=== PATIENT | male | born 1940 | race Caucasian/White ===

== ENCOUNTER → 2016-11-19 | Outpatient (CLI) | payer MEDICARE, MEDICAID | LOC: GMAJ 22:55 | PROVIDERS: ATTEND Nurse Practitioner Family | DX: N39.0 Urinary tract infection, site not specified (principal) ==

== ENCOUNTER 2017-01-16 11:30 | Inpatient (IN) | payer MEDICARE, MEDICAID ==
--- NOTE | 2017-01-16 11:39 | HP ---
SUPERVISING PHYSICIAN: Butch Haider MD CHIEF COMPLAINT: Shortness of breath. HISTORY OF PRESENT ILLNESS: This is a 76-year-old, male patient who is a resident of [facility]. He was seen in clinic last week and treated for bronchitis with Augmentin. He had increased his breathing treatments and his condition has not improved. He does have a longstanding history of chronic obstructive pulmonary disease. Today, he saw his primary care physician, Dr. Carroll Russo, and his respiratory status had worsened. In fact, he was wheezing quite a bit as well as tachypneic. His blood sugars were elevated. Chest x-ray was done and there was no pneumonia at this time, but I was called for admission for the patient due to acute on chronic chronic obstructive pulmonary disease with an acute exacerbation who had failed outpatient treatment as well as hyperglycemia. PAST MEDICAL HISTORY: 1. Coronary artery disease. 2. Chronic obstructive pulmonary disease. 3. Chronic kidney disease. 4. Hypertension. 5. Gastroesophageal reflux disease. 6. Anxiety disorder. 7. Hypercholesterolemia. 8. Type 2 diabetes mellitus. 9. Mental retardation. 10. Peripheral vascular disease. 11. Osteoarthritis. PAST SURGICAL HISTORY: 1. Coronary artery stent placement in 2005. 2. Tonsillectomy. 3. Coronary artery bypass graft, three vessels, in 2009. 4. Pacemaker implantation. OUTPATIENT MEDICATIONS: Per the EMR and awaiting verification. ALLERGIES: NO KNOWN ALLERGIES. SOCIAL HISTORY: He is disabled. He is single. He lives at [facility]. He denies any smoking, ETOH or illicit drug use. REVIEW OF SYSTEMS: GENERAL: Positive for fatigue. Negative for fever or weight changes. HEENT: Positive for nasal congestion and nasal disease. Negative for vision changes or sore throat. RESPIRATORY: Positive for wheezing, shortness of breath and chest congestion with a productive cough. CARDIAC: Denies chest pain, palpitations or tachycardia. GASTROINTESTINAL: Negative for nausea, vomiting, diarrhea, constipation or abdominal pain. SKIN: Negative for rashes or lesions. NEUROLOGIC: Positive for headache. Negative for dizziness, or seizures. PHYSICAL EXAMINATION: VITAL SIGNS: Afebrile. Heart rate 60. Blood pressure 165/78. Respiratory rate 24 breaths per minute. O2 saturation 97% on room air. GENERAL: This is a 76-year-old, male patient who is lying in his hospital bed. He is in mild respiratory distress. HEENT: Normocephalic, atraumatic. Pupils are equal and reactive. He has clear nasal drainage. Oropharynx is clear. NECK: Supple without mass. RESPIRATORY: Bilateral wheezing, more pronounced on the left than on the right. It is diminished at the bases and there are some scattered rhonchi throughout. He is tachypneic. CHEST: There is equal rise and fall of the chest with inspiration and expiration. CARDIOVASCULAR: Regular rate and rhythm. ABDOMEN: Soft, he is obese, it is rounded. Bowel sounds are positive. EXTREMITIES: No cyanosis, clubbing or edema. NEUROLOGIC: Awake, alert and oriented times three. He is very hard of hearing. LABORATORY: White count 6.3 with a hemoglobin 12.2, hematocrit 35.9. Sodium 134, potassium 4.3, chloride 100, BUN 32, creatinine 1.31, glucose 197. All other labs and films are awaiting completion in the EMR. ASSESSMENT: 1. Acute on chronic bronchitis with acute exacerbation, failed outpatient treatment. 2. Elevated blood sugar. 3. Diabetes mellitus, type 2, poorly controlled. 4. Hypertension. 5. Coronary artery disease. 6. Chronic kidney disease. 7. Mild mental retardation. PLAN: We will admit the patient to the hospital. I have done routine labs. We will repeat his chest x-ray in the morning. I have started him on IV steroids and we will have to keep close monitoring of his blood sugars as he has poorly controlled diabetes at this point anyway, so we will put him on sliding scale insulin. I will re-start his home medications as soon as they are verified. I have also given him breathing treatments, both scheduled and p.r.n. as well as ordered good bronchial hygiene. I started him on Levaquin parenteral antibiotics. I have done blood cultures as well as UA. I have ordered a proton pump inhibitor for ulcer prophylaxis and Lovenox for DVT prophylaxis. I have consulted physical therapy for evaluation and strengthening. We will continue to monitor the patient closely and follow as needed. Dr. Haider is the collaborating physician and available for consultation. #[id number] [facility]
[2017-01-16] MEDS ORDERED: ALBUTEROL SULFATE 2.5 MG/3 ML VIAL NEB PRN (12:52)
[2017-01-16] MEDS: IPRATROPIUM/ALBUTEROL 3 ML VIAL NEB SCH ×3 (13:00→20:28)
[2017-01-16] MEDS ORDERED: DEXTROSE 50% 25 GM/50 ML SYG IV PRN (13:01)
[2017-01-16] MEDS ORDERED: GLUCAGON INJ 1 MG VIAL SUBCU PRN (13:01)
--- NOTE | 2017-01-16 13:36 | PCM.CORE ---
Physician DVT/VTE - Prophylaxis Currently: Patient already on anticoagulation therapy - Nurse DVT Assessment & Total Each Risk Factor Represents 3 Points: Age over 75 years Each Risk Factor is 1 Point: Serious Lung disease (pnemonia <1month, COPD, emphysema,etc) DVT Assessment Score: 4 - 3-4 High Risk Treatments: Early Ambulation *, Sequential Compression Device
[2017-01-16] MEDS ORDERED: levoFLOXacin 500MG IV 100 ML IVPB ONE (14:13)
[2017-01-16] MEDS: PANTOPRAZOLE SODIUM IV 40 MG VIAL IV SCH (14:23)
[2017-01-16] MEDS: levoFLOXacin 500MG IV 500 MG in PREMIX BAG 1 BAG IVPB SCH (14:24)
[2017-01-16] MEDS: methylPREDNISolone SODIUM SUC 125 MG/2 ML VIAL IV SCH ×2 (14:24→21:22)
[2017-01-16] MEDS: ENOXAPARIN SODIUM 40 MG/0.4 ML SYG SUBCU SCH (14:25)
[2017-01-16] MEDS: IV SET AND CAP CHANGE INJ INJ SCH (16:01)
[2017-01-16] MEDS: INSULIN LISPRO 100 UNITS/ML PEN SUBCU SCH ×2 (16:36→21:30)
[2017-01-16] MEDS ORDERED: traZODone HCL 100 MG TAB PO ONE (20:15)
[2017-01-16] MEDS ORDERED: LACTOBACILLUS 1 TAB ONE (20:16)
[2017-01-16] MEDS ORDERED: TEMAZEPAM 15 MG CAP ONE (20:16)
[2017-01-16] MEDS ORDERED: NON-FORMULARY MEDICATION 1 EA MIS (Trazodone Hcl [Trazodone Hcl] 150 MG) PO SCH (21:00)
[2017-01-16] MEDS ORDERED: NON-FORMULARY MEDICATION 1 EA MIS (Lactobacillus [Acidophilus Lactobacilli] 1 CAP) PO SCH (21:00)
[2017-01-16] MEDS ORDERED: NON-FORMULARY MEDICATION 1 EA MIS (Temazepam [Temazepam] 30 MG) PO SCH (21:00)
[2017-01-16] MEDS: SODIUM CHLORIDE 0.9% (FLUSH) 10 ML SYG IV SCH (21:19)
[2017-01-16] MEDS: CILOSTAZOL 100 MG TAB PO SCH (21:19)
[2017-01-17] MEDS: methylPREDNISolone SODIUM SUC 125 MG/2 ML VIAL IV SCH ×3 (06:04→21:31)
[2017-01-17] MEDS: SODIUM CHLORIDE 0.9% (FLUSH) 10 ML SYG IV PRN (06:05)
[2017-01-17] MEDS ORDERED: SODIUM CHLORIDE 0.9% 1000ML 1,000 ML IVS PRN (06:56)
--- NOTE | 2017-01-17 07:02 | RAD ---
EXAM: Single view chest. INDICATION: COPD. COMPARISON: Chest x-ray: 09/18/2015. FINDINGS: Cardiac silhouette: Enlarged with a left chest wall pacemaker in place. [place]: Unremarkable. Lobar consolidation: None. Pleural effusion: None. Pneumothorax: None. Other: None. Bones: Unremarkable. Other: None. IMPRESSION: 1. No acute cardiopulmonary process. Electronically signed by: Chauncey Epperson MD 01/17/2017 7:01 AM CDT Workstation: [id number]
[2017-01-17] MEDS: INSULIN LISPRO 100 UNITS/ML PEN SUBCU SCH ×4 (07:38→21:29)
[2017-01-17] MEDS: CILOSTAZOL 100 MG TAB PO SCH ×2 (08:36→21:03)
[2017-01-17] MEDS: guaiFENesin ER TAB 600 MG TAB PO SCH ×3 (08:36→21:03)
[2017-01-17] MEDS: FUROSEMIDE 40 MG TAB PO SCH (08:37)
[2017-01-17] MEDS: CETIRIZINE HCL 10 MG TAB PO SCH (08:37)
[2017-01-17] MEDS: SODIUM CHLORIDE 0.9% (FLUSH) 10 ML SYG IV SCH (08:38)
[2017-01-17] MEDS: ATENOLOL 25 MG TAB PO SCH (08:44)
[2017-01-17] MEDS: TOLTERODINE TARTRATE ER 4 MG CAP PO SCH (08:44)
[2017-01-17] MEDS: DULoxetine HCL 30 MG CAP PO SCH (08:44)
[2017-01-17] MEDS: ARIPiprazole 5 MG TAB PO SCH (08:45)
[2017-01-17] MEDS: PANTOPRAZOLE SODIUM IV 40 MG VIAL IV SCH (08:45)
[2017-01-17] MEDS: LACTOBACILLUS 1 TAB PO SCH ×3 (08:45→21:08)
[2017-01-17] MEDS: ACETAMINOPHEN 325 MG TAB PO PRN (08:50)
[2017-01-17] MEDS: ONDANSETRON INJ 4 MG/2 ML VIAL IV PRN ×2 (08:50→18:14)
[2017-01-17] MEDS: IPRATROPIUM/ALBUTEROL 3 ML VIAL NEB SCH ×4 (08:54→20:37)
[2017-01-17] MEDS ORDERED: NON-FORMULARY MEDICATION 1 EA MIS (Telmisartan [Micardis] 40 MG) PO SCH (09:00)
[2017-01-17] MEDS ORDERED: OXYBUTYNIN CHLORIDE 5 MG PO SCH (09:00)
[2017-01-17] MEDS: ARFORMOTEROL TARTRATE 15 MCG/2 ML NEB NEB SCH ×2 (10:15→20:37)
[2017-01-17] MEDS: FLUTICASONE PROP 0.05% NASAL 16 GM BTTL BNAS SCH (10:43)
--- NOTE | 2017-01-17 11:20 | PN ---
SUPERVISING PHYSICIAN: Butch Haider MD DATE: 01/17/17 SUBJECTIVE: The patient is sitting up in his hospital bed. He complains that he has had more chest congestion today as well as said he coughed all night long. He denies any chest pain or shortness of breath, nausea, vomiting or diarrhea. OBJECTIVE: VITAL SIGNS: Afebrile. Heart rate 60. Blood pressure 146/71. Respiratory rate 20. O2 saturation has dropped as low as 89%and is now 91%. LUNGS: Bilateral rhonchi scattered throughout, but no wheezes noted today. CARDIAC: Regular rate and rhythm. ABDOMEN: Soft, rounded, nontender. Bowel sounds are positive. EXTREMITIES: No cyanosis, clubbing or edema. NEUROLOGIC: Awake, alert and oriented times three. LABORATORY: Sodium 133, potassium 5, chloride 97, carbon dioxide 24, BUN 36, creatinine 1.5, glucose 322. Glucose has gotten as high as 355. Calcium 8.3. Preliminary blood cultures are negative to date. Chest x-ray per radiologic interpretation shows no acute pulmonary process. All other labs and films have been reviewed via the EMR. ASSESSMENT: 1. Acute on chronic bronchitis with acute exacerbation, failed outpatient treatment. 2. Elevated blood sugar. 3. Diabetes mellitus, type 2, poorly controlled. 4. Hypertension. 5. Coronary artery disease. 6. Chronic kidney disease. 7. Mild mental retardation. 8. Mild hyponatremia. PLAN: We will continue present supportive care. I have increased his sliding scale insulin some to help cover his sugars as well as decreasing his steroids. I will discuss with respiratory therapy so we can order some more aggressive pulmonary hygiene. He is still on his guaifenesin. I have also started Brovana twice a day for his chronic obstructive pulmonary disease. I gave him a small amount of fluids to help with his renal function and I have ordered routine lab for in the morning. We will continue to encourage good pulmonary hygiene and continue to monitor the patient closely and follow as needed. Dr. Haider is the collaborating physician and available for consultation. [facility][id number] [facility]
[2017-01-17] MEDS ORDERED: PROMETHAZINE HCL INJ 25 MG/ML VIAL ONE (12:34)
[2017-01-17] MEDS ORDERED: SODIUM CHLORIDE 0.9% 50ML 50 ML ONE (12:35)
[2017-01-17] MEDS: PROMETHAZINE HCL INJ 25 MG in SODIUM CHLORIDE 0.9% 50ML 50 ML IVPB PRN (12:38)
[2017-01-17] MEDS: ENOXAPARIN SODIUM 40 MG/0.4 ML SYG SUBCU SCH (12:38)
[2017-01-17] MEDS ORDERED: levoFLOXacin 500MG IV 100 ML IVPB ONE (14:02)
[2017-01-17] MEDS: levoFLOXacin 500MG IV 500 MG in PREMIX BAG 1 BAG IVPB SCH (14:25)
[2017-01-17] MEDS: MAGNESIUM HYDROXIDE 30 ML UD PO SCH ×2 (14:25→18:13)
[2017-01-17] MEDS ORDERED: cloNIDine HCL 0.1 MG TAB PO ONE ×3 (14:56→20:44)
[2017-01-17] MEDS: BENZONATATE PERLES 100 MG CAP PO PRN ×2 (18:15)
[2017-01-17] MEDS ORDERED: VALSARTAN 80 MG TAB PO ONE (18:35)
[2017-01-17] MEDS: traZODone HCL 100 MG TAB PO SCH (21:02)
[2017-01-17] MEDS: TEMAZEPAM 15 MG CAP PO SCH (21:04)
[2017-01-18] MEDS: BENZONATATE PERLES 100 MG CAP PO PRN (00:11)
[2017-01-18] MEDS ORDERED: PANTOPRAZOLE SODIUM TAB 40 MG PO ONE (04:54)
[2017-01-18] MEDS: methylPREDNISolone SODIUM SUC 125 MG/2 ML VIAL IV SCH (06:51)
[2017-01-18] MEDS: PANTOPRAZOLE SODIUM TAB 40 MG PO SCH ×2 (06:51→07:10)
[2017-01-18] MEDS ORDERED: PROMETHAZINE HCL INJ 25 MG/ML VIAL ONE (07:08)
[2017-01-18] MEDS ORDERED: SODIUM CHLORIDE 0.9% 50ML 50 ML ONE (07:11)
[2017-01-18] MEDS: PROMETHAZINE HCL INJ 25 MG in SODIUM CHLORIDE 0.9% 50ML 50 ML IVPB PRN (07:11)
[2017-01-18] MEDS: SODIUM CHLORIDE 0.9% (FLUSH) 10 ML SYG IV PRN ×3 (07:20→21:32)
[2017-01-18] MEDS: INSULIN LISPRO 100 UNITS/ML PEN SUBCU SCH ×4 (07:30→21:29)
[2017-01-18] MEDS: ARFORMOTEROL TARTRATE 15 MCG/2 ML NEB NEB SCH ×2 (08:52→19:55)
[2017-01-18] MEDS: IPRATROPIUM/ALBUTEROL 3 ML VIAL NEB SCH ×4 (08:52→19:55)
--- NOTE | 2017-01-18 08:55 | RAD ---
EXAM DESCRIPTION: Abdomen Flat Upright CLINICAL HISTORY: 76 years Male, Vomitting COMPARISON: None. FINDINGS: Postoperative changes in the mediastinum and cardiac pacemaker only partially included. There are probable small bilateral pleural effusions with overlying atelectasis, edema or pneumonia in the lung bases. No pneumoperitoneum. The bowel gas pattern is nonobstructive with a moderate amount of stool and gas scattered throughout the colon. Is a moderate amount of gas in the stomach. No suspicious intra-abdominal calcification or mass is identified. There are degenerative changes in the lumbar spine at multiple levels. IMPRESSION: No obstruction, pneumoperitoneum or other acute intra-abdominal abnormality to explain patient's symptoms. Possible small bilateral pleural effusions with overlying atelectasis, pneumonia or edema in the lung bases. PA and lateral chest radiograph may be helpful for further evaluation. Electronically signed by: Bony Sprague MD 01/18/2017 8:54 AM CDT Workstation: [id number]
[2017-01-18] MEDS ORDERED: VALSARTAN 80 MG TAB PO SCH (09:00)
[2017-01-18] MEDS ORDERED: BISACODYL TAB 5 MG TAB PO ONE (09:07)
[2017-01-18] MEDS: DULoxetine HCL 30 MG CAP PO SCH (10:02)
[2017-01-18] MEDS: VALSARTAN 80 MG TAB PO SCH (10:03)
[2017-01-18] MEDS: TOLTERODINE TARTRATE ER 4 MG CAP PO SCH (10:03)
[2017-01-18] MEDS: FUROSEMIDE 40 MG TAB PO SCH (10:03)
[2017-01-18] MEDS: BISACODYL TAB 5 MG TAB PO SCH (10:03)
[2017-01-18] MEDS: ARIPiprazole 5 MG TAB PO SCH (10:03)
[2017-01-18] MEDS: ATENOLOL 25 MG TAB PO SCH (10:03)
[2017-01-18] MEDS: LACTOBACILLUS 1 TAB PO SCH ×3 (10:04→21:28)
[2017-01-18] MEDS: FLUTICASONE PROP 0.05% NASAL 16 GM BTTL BNAS SCH (10:04)
[2017-01-18] MEDS: guaiFENesin ER TAB 600 MG TAB PO SCH ×2 (10:04→21:29)
[2017-01-18] MEDS: CETIRIZINE HCL 10 MG TAB PO SCH (10:04)
[2017-01-18] MEDS: CILOSTAZOL 100 MG TAB PO SCH ×2 (10:04→21:29)
--- NOTE | 2017-01-18 10:29 | PN ---
SUPERVISING PHYSICIAN: Butch Haider MD DATE: 01/18/17 SUBJECTIVE: It was reported that the patient threw up earlier this morning and yesterday afternoon, he actually complained of some stomach pain and had not had a bowel movement. When I saw him yesterday afternoon, his abdomen was somewhat firmer than the day before. Today, he continues complaints of abdominal pain. He did receive 2 doses of Milk of Magnesia yesterday with minimal results. He also complains of continued coughing, but feels like it is much better than yesterday. OBJECTIVE: VITAL SIGNS: Afebrile. Heart rate 60. Blood pressure 186/92. Respiratory rate 20. O2 saturation 95%, but it did go as low as 88% on 2.5 liters nasal cannula overnight. LUNGS: Continues with bilateral rhonchi, but no wheezing noted. Somewhat diminished at the bases. CARDIAC: Regular rate and rhythm. ABDOMEN: Soft, nondistended, nontender. Bowel sounds are positive. Yesterday afternoon, his abdomen was somewhat firm and diffusely tender, but is improved overnight. EXTREMITIES: Trace of pedal edema noted bilaterally. NEUROLOGIC: Awake, alert and oriented times three. LABORATORY: WBCs have elevated to 14,000, hemoglobin 12.3, hematocrit 36.9, neutrophils 92.2%. Blood sugars have run between 255 and 339. Sodium 132, potassium 4.9, chloride 96, carbon dioxide 28, BUN 41, creatinine 1.43. Preliminary blood cultures show no growth after 24 hours. Abdominal x-ray per radiologic interpretation shows no obstruction, pneumoperitoneum or other intraabdominal abnormality to explain the patient's symptoms and possible small bilateral pleural effusions with overlying atelectasis, pneumonia or edema in the lung bases. PA and lateral chest radiograph may be helpful for further evaluation. All other labs and films have been reviewed via the EMR. ASSESSMENT: 1. Acute on chronic bronchitis with acute exacerbation, failed outpatient treatment. 2. Concerns for healthcare associated pneumonia per x-ray. He is presently on Levaquin. 3. Elevated blood sugar. 4. Diabetes mellitus, type 2, poorly controlled. 5. Hypertension. 6. Coronary artery disease. 7. Chronic kidney disease with a baseline creatinine of about 1.5. 8. Mild mental retardation. 9. Mild hyponatremia. PLAN: We will continue present supportive care. He received 2 doses of Milk of Magnesia yesterday and I have ordered some p.o. Dulcolax today as well as a soapsuds enema. His abdomen seems softer today than yesterday, but he is still complaining of some abdominal discomfort. I will also order another chest x- ray as recommended by the abdominal x-ray. I have decreased his steroids. He will get IV steroids today and tomorrow morning, he will start on 40 mg of prednisone daily. We will continue with good pulmonary hygiene and he will need to go home on Brovana and DuoNeb or another anticholinergic. Yesterday, his systolic blood pressure was elevated into the 190s. He received several doses of clonidine with very minimal results. He received an extra dose of valsartan yesterday, so I have increased his valsartan to 160 mg daily today and we will need to continue to monitor his blood pressure. His sodium is staying a little bit low and I will put him on a fluid restriction. [facility] We will continue to monitor the patient closely and follow as needed. Dr. Haider is the collaborating physician and available for consultation. [facility][id number] [facility]
[2017-01-18] MEDS: ENOXAPARIN SODIUM 40 MG/0.4 ML SYG SUBCU SCH (14:30)
[2017-01-18] MEDS ORDERED: SODIUM PHOS/BIPHOS ENEMA ADULT 133 ML BTTL PR ONE ×2 (14:55→15:00)
[2017-01-18] MEDS ORDERED: levoFLOXacin 500MG IV 100 ML IVPB ONE (15:14)
[2017-01-18] MEDS: levoFLOXacin 500MG IV 500 MG in PREMIX BAG 1 BAG IVPB SCH (15:39)
[2017-01-18] MEDS: methylPREDNISolone SODIUM SUC 40 MG/ML VIAL IV SCH ×2 (15:40→21:32)
[2017-01-18] MEDS: traZODone HCL 100 MG TAB PO SCH (21:28)
[2017-01-18] MEDS: TEMAZEPAM 15 MG CAP PO SCH (21:29)
[2017-01-19] MEDS: methylPREDNISolone SODIUM SUC 40 MG/ML VIAL IV SCH (05:57)
[2017-01-19] MEDS: SODIUM CHLORIDE 0.9% (FLUSH) 10 ML SYG IV PRN (05:57)
[2017-01-19] MEDS: PANTOPRAZOLE SODIUM TAB 40 MG PO SCH (05:57)
--- NOTE | 2017-01-19 07:16 | RAD ---
EXAM DESCRIPTION: Chest,1 View CLINICAL HISTORY: copd COMPARISON: January 17, 2017 FINDINGS: Again seen are postoperative changes in the mediastinum. A dual-lead cardiac pacemaker remains in place. The heart is enlarged but stable. There is some patchy alveolar opacity in the right lung base. Subsegmental atelectasis or scar is noted elsewhere in both lung bases. No pleural effusion. The lung volumes are within normal range. There is chronic elevation of the right hemidiaphragm. There is no pneumothorax or acute fracture. IMPRESSION: Abnormal appearance of the right lung base likely representing edema rather than pneumonia. Stable cardiomegaly, postoperative changes in the mediastinum and cardiac pacemaker. Electronically signed by: Bony Sprague MD 01/19/2017 7:15 AM CDT
[2017-01-19] MEDS: INSULIN LISPRO 100 UNITS/ML PEN SUBCU SCH ×5 (07:51→21:09)
[2017-01-19] MEDS: IPRATROPIUM/ALBUTEROL 3 ML VIAL NEB SCH ×4 (08:30→19:20)
[2017-01-19] MEDS: ARFORMOTEROL TARTRATE 15 MCG/2 ML NEB NEB SCH ×2 (08:30→19:20)
[2017-01-19] MEDS: VALSARTAN 80 MG TAB PO SCH (09:53)
[2017-01-19] MEDS: predniSONE 20 MG TAB PO SCH (09:53)
[2017-01-19] MEDS: CILOSTAZOL 100 MG TAB PO SCH ×2 (09:53→20:27)
[2017-01-19] MEDS: CETIRIZINE HCL 10 MG TAB PO SCH (09:53)
[2017-01-19] MEDS: FUROSEMIDE 40 MG TAB PO SCH (09:53)
[2017-01-19] MEDS: FLUTICASONE PROP 0.05% NASAL 16 GM BTTL BNAS SCH (09:53)
[2017-01-19] MEDS: TOLTERODINE TARTRATE ER 4 MG CAP PO SCH (09:54)
[2017-01-19] MEDS: ATENOLOL 25 MG TAB PO SCH (09:54)
[2017-01-19] MEDS: DULoxetine HCL 30 MG CAP PO SCH (09:54)
[2017-01-19] MEDS: ARIPiprazole 5 MG TAB PO SCH (09:54)
[2017-01-19] MEDS: guaiFENesin ER TAB 600 MG TAB PO SCH ×2 (09:54→20:27)
[2017-01-19] MEDS: BISACODYL TAB 5 MG TAB PO SCH (09:54)
[2017-01-19] MEDS: LACTOBACILLUS 1 TAB PO SCH ×3 (09:55→20:27)
[2017-01-19] MEDS: ACETAMINOPHEN 325 MG TAB PO PRN (10:19)
[2017-01-19] MEDS ORDERED: KCL 20MEQ/0.45% NS 1,000 ML IVS PRN (12:23)
[2017-01-19] MEDS: ENOXAPARIN SODIUM 40 MG/0.4 ML SYG SUBCU SCH (13:54)
[2017-01-19] MEDS ORDERED: levoFLOXacin 250MG IV 50 ML IVPB ONE (15:27)
[2017-01-19] MEDS ORDERED: levoFLOXacin 250MG IV 250 MG in PREMIX BAG 1 BAG IVPB SCH (15:30)
[2017-01-19] MEDS: IV SET AND CAP CHANGE INJ INJ SCH (15:44)
--- NOTE | 2017-01-19 19:16 | PN ---
DATE: 01/19/17 SUPERVISING PHYSICIAN: Butch Haider M.D. SUBJECTIVE: The patient continues to have some nausea and some epigastric discomfort. He did have some bowel movements and especially one this morning. He has actually been tolerating his diet and has been afebrile. OBJECTIVE: VITAL SIGNS: T max 98.0, pulse 60, blood pressure 117/82, respirations 20, satting 97% on nasal cannula at 2 liters. I's and O's show that he has had 1 bowel movement yesterday and has had multiple voids. Weight is 125.7 kg. CHEST: Lungs are clearer today with no notable wheezing, but remains diminished towards the bases. HEART: Regular rate and rhythm. ABDOMEN : Soft, nondistended with positive bowel sounds. EXTREMITIES: No clubbing, cyanosis or edema noted. NEUROLOGIC: He is alert and oriented times three. LABORATORY: White count is down to 12.1, hemoglobin is stable at 12.8 and 37.7 for hematocrit, platelet count is 192,000. Differential continues to show a left shift. Chemistries: sodium is down to 131, potassium is normal at 4.9, BUN is up today to 56 as well as creatinine is up to 1.74. Blood sugars have been elevated in the 300s, calcium is normal at 8.6. Sodium corrected for his blood sugar of 275 is 135. MICROBIOLOGY: Two sets of blood cultures remain negative after 3 days. RADIOLOGY: Chest x-ray this morning per radiology interpretation shows abnormal appearance of the right lung base likely representing edema rather than pneumonia and stable cardiomegaly with postoperative changes of the mediastinum as well as pacemaker on initial one view chest. ASSESSMENT: 1. Acute on chronic bronchitis with acute exacerbation failed outpatient treatment plan with concerns for healthcare associated pneumonia versus some edema with the patient being started on Levaquin. 2. Elevated blood sugar secondary to diabetes mellitus type 2 and ongoing corticosteroid administration. 3. Diabetes mellitus type 2 poorly controlled. 4. Hypertension. 5. Coronary artery disease. 6. Chronic kidney disease with a baseline creatinine noted to be at 1.5 with some elevation today possibly related to prerenal azotemia and some dehydration. 7. Moderate dehydration as noted by elevated BUN and creatinine. 8. Mild mental retardation. 9. Mild hyponatremia, although corrected for hyperglycemia showing improvement. PLAN: The patient will continue with IV fluids today as he is showing some dehydration and slight worsening renal function. This could be due to his Levaquin that was started. Will renal dose based off his creatinine clearance today and continue to monitor closely. I will go ahead and start him on some half normal saline with some potassium to help balance fluid status and monitor closely. He has been transitioned to p.o. Prednisone today. Blood sugars remain elevated. Will add additional a.c. coverage in efforts to better control this. He continues on Brovana and DuoNeb. I hope we will be able to discharge him tomorrow once he has shown a little better fluid management and not dehydrated, and hopefully showing some improvement in his renal function. Will go ahead and give another dose of Milk of Magnesia later today in efforts to provide additional bowel movements, but hopefully will alleviate some of his nausea, although he did have a bowel movement yesterday with the enema. Until discharge, will continue to monitor and treat appropriately. [facility][id number] [facility]
[2017-01-19] MEDS: traZODone HCL 100 MG TAB PO SCH (20:27)
[2017-01-19] MEDS: TEMAZEPAM 15 MG CAP PO SCH (20:27)
[2017-01-19] MEDS ORDERED: MAGNESIUM HYDROXIDE 30 ML UD PO SCH (21:00)
[2017-01-20] MEDS: PANTOPRAZOLE SODIUM TAB 40 MG PO SCH (06:08)
[2017-01-20] MEDS: INSULIN LISPRO 100 UNITS/ML PEN SUBCU SCH ×2 (08:02→08:03)
[2017-01-20] MEDS: ARIPiprazole 5 MG TAB PO SCH (08:06)
[2017-01-20] MEDS: CILOSTAZOL 100 MG TAB PO SCH (08:06)
[2017-01-20] MEDS: TOLTERODINE TARTRATE ER 4 MG CAP PO SCH (08:07)
[2017-01-20] MEDS: FUROSEMIDE 40 MG TAB PO SCH (08:08)
[2017-01-20] MEDS: guaiFENesin ER TAB 600 MG TAB PO SCH (08:08)
[2017-01-20] MEDS: predniSONE 20 MG TAB PO SCH (08:08)
[2017-01-20] MEDS: VALSARTAN 80 MG TAB PO SCH (08:08)
[2017-01-20] MEDS: DULoxetine HCL 30 MG CAP PO SCH (08:08)
[2017-01-20] MEDS: ATENOLOL 25 MG TAB PO SCH (08:08)
[2017-01-20] MEDS: LACTOBACILLUS 1 TAB PO SCH (08:09)
[2017-01-20] MEDS: CETIRIZINE HCL 10 MG TAB PO SCH (08:09)
[2017-01-20] MEDS: IPRATROPIUM/ALBUTEROL 3 ML VIAL NEB SCH (08:37)
[2017-01-20] MEDS: ARFORMOTEROL TARTRATE 15 MCG/2 ML NEB NEB SCH (08:37)
[2017-01-20] MEDS: BISACODYL TAB 5 MG TAB PO SCH (09:52)
[2017-01-20] MEDS: FLUTICASONE PROP 0.05% NASAL 16 GM BTTL BNAS SCH (09:52)
[2017-01-20 10:30] VITALS: O2SAT 94
[2017-01-20 10:39] VITALS: BP 170/72; TEMP 97.6
--- NOTE | 2017-01-21 10:04 | DS ---
SUPERVISING PHYSICIAN: Butch Haider MD DISCHARGE DIAGNOSES: 1. Acute on chronic bronchitis with acute exacerbation having failed to respond to outpatient treatment plan with concerns for healthcare associated pneumonia versus some edema with the patient having on Levaquin during hospitalization showing good improvement in symptoms. 2. Elevated blood sugar secondary to diabetes mellitus type 2 and ongoing corticosteroid administration. 3. Diabetes mellitus type 2 poorly controlled. 4. Hypertension. 5. Coronary artery disease. 6. Chronic kidney disease with a baseline creatinine of 1.5 with some elevation during hospitalization felt to be related to prerenal azotemia and some dehydration improved after fluids. 7. Moderate dehydration improved after initiation of fluids. 8. Mild mental retardation. 9. Mild hyponatremia improved after fluids and correction with hypoglycemia state. 10. Constipation resolved with stool softeners and milk of magnesia. HISTORY OF PRESENT ILLNESS: Mr. Pritchett is a 76-year-old male patient who is a resident of [facility]. He was seen in clinic in the previous week and treated for bronchitis and was started on Augmentin. He had increased in his breathing treatments and his condition had not improved. He does have a longstanding history of chronic obstructive pulmonary disease. On date of admission, he saw his primary care physician, Dr. Carroll Russo, and his respiratory status had worsened. In fact, he was wheezing quite a bit and was tachypneic. His blood sugars were elevated. Chest x-ray was done and there was no pneumonia at that time, but he was admitted due to the acute on chronic chronic obstructive pulmonary disease with an acute exacerbation having failed to respond to outpatient treatment plan as well as hyperglycemia. LABORATORY: White count on admission showed to be normal at 6.3. After initiation of the corticosteroids it did maximize at 14.0, prior to discharge it had normalized to 8.0 Hemoglobin and hematocrit were stable and on discharge was 12.5 and 35.9. Platelet count was 189,000. Differential did show a left shift, this resolved prior to discharge. Chemistries initially on admission showed a sodium of 134, potassium 4.3, BUN 32, creatinine 1.31. Liver functions showed to be within normal limits. Prior to discharge and after treatment with fluids, his sodium was persistently low but correction, given the hypoglycemia was actually normalized at 135. Potassium was 4.3, BUN still slightly elevated at 62, creatinine was at 1.62. however, this was felt to be partially related to the Levaquin dosing. Blood sugars were elevated after he was started on corticosteroids ranging in the mid 200s to mid 300s but improving prior to discharge. Glucose at discharge was 193. Urinalysis showed 100 protein, 250 glucose, otherwise was within normal limits. MICROBIOLOGY: No sputum was collected. His blood cultures remained negative at 4 days. RADIOLOGY: He had a chest x-ray initially on admission. The day after admission and per radiology interpretation, there was no acute cardiopulmonary processes noted. He had an additional chest x-ray on 01/19 which compared to showed abnormal appearance of the right lung base likely representing edema rather than pneumonia but stable cardiomegaly was noted. HOSPITAL COURSE: Mr. Pritchett was admitted as noted in the history of present illness for acute exacerbation of chronic obstructive pulmonary disease, having failed to respond to outpatient treatment plan with bronchitis with concerns for healthcare acquired pneumonia. He was initiated on Levaquin initially as well as Solu-Medrol. The patient did show improvement. His white count elevated but this was felt to be due to his Solu-Medrol dosing and he was slowly tapered to p.o. dose. 24 hours prior to discharge he was on p.o. prednisone. He was no longer showing any respiratory distress. He did have some episodes of abdominal discomfort and some nausea which was attributed to ongoing constipation which resolved after enemas, stool softeners and milk of magnesia. On the morning of discharge, the patient was felt to be clinically improved well enough to be continued in outpatient setting with discharge. He had finished a 5-day course of high-dose Levaquin antibiotic coverage. He was discharged to continue in outpatient setting and return to [facility]. The patient did have some episodes of hypertension and Diovan was doubled in dosing and had good response. It was also noted that he was started on a long-acting beta antagonist with Brovana and responded well. This was continued through discharge. PLAN: Mr. Pritchett was discharged on 01/20/17 with instructions to have close clinical followup with Dr. Russo as scheduled in the coming week and to have a repeat chest x-ray. Return via [facility]. He is to resume his home medications as instructed and follow new prescriptions as directed. He is to have physical therapy evaluation and treatment. He is to return to the hospital should have any concerns or worsening symptoms. At discharge, he was started on: 1. Albuterol 2.5 mg nebulizer. 2. Brovana 15 mcg nebulizer twice a day. 3. Guaifenesin 600 mg twice a day. 4. Duoneb 4 times a day. 5. Medrol Dosepak tapering dose, 4 mg. 6. Diodon 160 mg daily. All other medications to resume as prior to hospitalization as noted in chart. Discharge diet: Diabetic. Activity as per physical therapy. Condition on discharge was stable and improved. [id number] [facility]
== END 2017-01-20 10:39 | DRG 190 ==
LOC: MS 11:30
PROVIDERS: ADMIT Nurse Practitioner Acute Care; ATTEND Nurse Practitioner Family
DX: J44.0 Chronic obstructive pulmonary disease with (acute) lower respiratory infection (principal); J18.9 Pneumonia, unspecified organism; E87.1 Hypo-osmolality and hyponatremia; J44.1 Chronic obstructive pulmonary disease with (acute) exacerbation; I25.10 Atherosclerotic heart disease of native coronary artery without angina pectoris; I12.9 Hypertensive chronic kidney disease with stage 1 through stage 4 chronic kidney disease, or unspecified chronic kidney disease; N18.9 Chronic kidney disease, unspecified; K21.9 Gastro-esophageal reflux disease without esophagitis; F41.9 Anxiety disorder, unspecified; E78.00 Pure hypercholesterolemia, unspecified; E11.22 Type 2 diabetes mellitus with diabetic chronic kidney disease; E11.51 Type 2 diabetes mellitus with diabetic peripheral angiopathy without gangrene; M19.90 Unspecified osteoarthritis, unspecified site; E66.9 Obesity, unspecified; Y95 Nosocomial condition; E86.0 Dehydration; F70 Mild intellectual disabilities; E11.65 Type 2 diabetes mellitus with hyperglycemia; Z95.5 Presence of coronary angioplasty implant and graft; Z95.1 Presence of aortocoronary bypass graft; Z95.0 Presence of cardiac pacemaker

== ENCOUNTER 2017-02-11 10:46 | Emergency (ER) | payer MEDICARE, OTHER ==
--- NOTE | 2017-02-11 11:11 | ED.PDOC ---
History of Present Illness - General Chief Complaint: Skin/Abrasion/Tear Stated Complaint: yeast infection Time Seen by Provider: 02/11/17 11:01 Source: patient, RN notes reviewed, [facility] records Additional Information: Day 6 of daily Diflucan for intertrigo. IA send patient to ED due to patient's complaint of pain and concern that the intertrigo was worsening. Pt in no distress and no obvious pain on arrival to ED. He is obese with uncontrolled DM and he is incontinent of urine. He is nontoxic. His comorbidities are likely contributing to his intertrigo. - History of Present Illness Timing/Duration: constant - for several days Severity: moderate Improving Factors: nothing Worsening Factors: nothing Associated Symptoms: denies symptoms Allergies/Adverse Reactions: Allergies NO KNOWN ALLERGY Allergy (Unverified 08/26/14 02:03) Home Medications: Ambulatory Orders Atenolol [Tenormin] 50 mg PO DAILY 08/26/14 Cilostazol [Pletal] 100 mg PO BID 08/26/14 Duloxetine HCl [Cymbalta] 60 mg PO DAILY 08/26/14 Furosemide 40 mg PO DAILY 08/26/14 Metformin HCl 500 mg PO 08/26/14 Oxybutynin Chloride [Oxybutynin Chloride ER] 5 mg PO DAILY 08/26/14 Pantoprazole Sodium 40 mg PO DAILY 08/26/14 Temazepam 30 mg PO BEDTIME 08/26/14 Trazodone HCl 150 mg PO BEDTIME 08/26/14 Vitamin C 500 mg PO DAILY 08/26/14 Aripiprazole 20 mg PO DAILY 01/16/17 Cetirizine HCl [Zyrtec] 10 mg PO DAILY 01/16/17 Fluticasone Prop 0.05% Nasal [Flonase Nasal [place]] 50 mcg INH DAILY 01/16/17 Lactobacillus [Acidophilus Lactobacilli] 1 cap PO TID 01/16/17 cloNAZepam [Klonopin] 0.25 mg PO DAILY 01/16/17 Albuterol Sulfate Nebs [Proventil Nebs] 2.5 mg NEB PRN PRN 01/20/17 Arformoterol Tartrate Nebs [Brovana Nebs] 15 mcg NEB RTBID #60 neb 01/20/17 Ipratropium/Albuterol [Duoneb] 3 ml NEB RTQID 09/29/17 Methylprednisolone [Medrol Dose Amanuel] 4 mg PO DAILY #1 pack 01/20/17 Valsartan [Diovan] 160 mg PO DAILY #60 tablet 01/20/17 guaiFENesin ER TAB [Mucinex Tab] 600 mg PO BID 01/20/17 Acetamin W/Cod #3 Tab [Tylenol #3 Tab] 1 ea PO Q4-6H PRN #20 tab 02/11/17 Insulin Glargine [Lantus Solostar] 10 unit SC BEDTIME #1 pack 02/11/17 Review of Systems - Review of Systems Constitutional: States: no symptoms reported EENTM: States: no symptoms reported Respiratory: States: no symptoms reported Cardiology: States: no symptoms reported Gastrointestinal/Abdominal: States: no symptoms reported Genitourinary: States: see HPI - incontinent of urine Musculoskeletal: States: no symptoms reported Skin: States: see HPI - intertrigo Neurological: States: no symptoms reported Endocrine: States: increased urine Hematologic/Lymphatic: States: no symptoms reported Past Medical History (General) - Patient Medical History Hx Cardiac Disorders: Yes Hx Congestive Heart Failure: Yes - CAD, Hyperlipidema, hypercholesterolemia Hx Pacemaker: Yes Hx Hypertension: Yes Hx Diabetes: Yes Hx Gastroesophageal Reflux: Yes Hx Renal Disease: Yes Hx MRSA: No - Vaccination History Hx Influenza Vaccination: Yes Hx Pneumococcal Vaccination: Yes - Social History Hx Tobacco Use: No Family Medical History - Family History Father Family History: Unknown Physical Exam - Physical Exam General Appearance: No apparent distress, Obese Eye Exam: bilateral normal Ears, Nose, Throat: other - hard of hearing (at baseline) Neck: non-tender, supple, normal inspection Respiratory: no respiratory distress, no accessory muscle use Cardiovascular/Chest: regular rate, rhythm Gastrointestinal/Abdominal: soft Extremity: normal range of motion, non-tender, normal inspection Neurologic: screen roller II-XII nml as tested, no motor/sensory deficits, alert Skin Exam: rash - Diffuse bilateral intertrigonous region of groin with moderate intertigo in areas where pannus overlies. Nontender no examination. Mild to Moderate maceration noted. Progress - Progress Progress: 02/11/17 11:47 Patient tolerated Barton Catheter placement. Pt in no distress at rest. Intertrigo appears moderate. Patient stable for discharge back to Snf. Blood glucose elevated - likely will benefit from basal insulin. 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 Copy, Patient Portal Self Enrollment Instructions: DI for Intertrigo Referrals: Carroll Russo MD [Primary Care Provider] - 1-5 Days Prescriptions: Acetamin W/Cod #3 Tab [Tylenol #3 Tab] 1 ea PO Q4-6H PRN #20 tab PRN Reason: Pain -- Moderate To Severe Insulin Glargine [Lantus Solostar] 10 unit SC BEDTIME #1 pack Home Medications: Ambulatory Orders Atenolol [Tenormin] 50 mg PO DAILY 08/26/14 Cilostazol [Pletal] 100 mg PO BID 08/26/14 Duloxetine HCl [Cymbalta] 60 mg PO DAILY 08/26/14 Furosemide 40 mg PO DAILY 08/26/14 Metformin HCl 500 mg PO 08/26/14 Oxybutynin Chloride [Oxybutynin Chloride ER] 5 mg PO DAILY 08/26/14 Pantoprazole Sodium 40 mg PO DAILY 08/26/14 Temazepam 30 mg PO BEDTIME 08/26/14 Trazodone HCl 150 mg PO BEDTIME 08/26/14 Vitamin C 500 mg PO DAILY 08/26/14 Aripiprazole 20 mg PO DAILY 01/16/17 Cetirizine HCl [Zyrtec] 10 mg PO DAILY 01/16/17 Fluticasone Prop 0.05% Nasal [Flonase Nasal [place]] 50 mcg INH DAILY 01/16/17 Lactobacillus [Acidophilus Lactobacilli] 1 cap PO TID 01/16/17 cloNAZepam [Klonopin] 0.25 mg PO DAILY 01/16/17 Albuterol Sulfate Nebs [Proventil Nebs] 2.5 mg NEB PRN PRN 01/20/17 Arformoterol Tartrate Nebs [Brovana Nebs] 15 mcg NEB RTBID #60 neb 01/20/17 Ipratropium/Albuterol [Duoneb] 3 ml NEB RTQID 01/20/17 Methylprednisolone [Medrol Dose Amanuel] 4 mg PO DAILY #1 pack 01/20/17 Valsartan [Diovan] 160 mg PO DAILY #60 tablet 01/20/17 guaiFENesin ER TAB [Mucinex Tab] 600 mg PO BID 01/20/17 Acetamin W/Cod #3 Tab [Tylenol #3 Tab] 1 ea PO Q4-6H PRN #20 tab 02/11/17 Insulin Glargine [Lantus Solostar] 10 unit SC BEDTIME #1 pack 02/11/17 Additional Instructions: Maintain random blood glucose around 100-200 with adjustments in basal insulin. Keep area with rash dry as much as possible. Barton bag care per usual nursing protocol. Consider referral to Urology for possible suprapubic catheter. Continue Diflucan daily for a total of 2 to 6 weeks to treat the Intertrigo.
[2017-02-11 11:13] VITALS: TEMP 96.1
[2017-02-11 12:30] VITALS: O2SAT 95
[2017-02-11 13:04] VITALS: BP 139/77
== END 2017-02-11 13:00 ==
LOC: ER 10:46
DX: L30.4 Erythema intertrigo (principal); E11.620 Type 2 diabetes mellitus with diabetic dermatitis; E11.65 Type 2 diabetes mellitus with hyperglycemia; R32 Unspecified urinary incontinence; Z79.4 Long term (current) use of insulin; I11.0 Hypertensive heart disease with heart failure; I50.9 Heart failure, unspecified; E78.5 Hyperlipidemia, unspecified; E78.00 Pure hypercholesterolemia, unspecified; Z79.899 Other long term (current) drug therapy

== ENCOUNTER → 2017-03-13 | Outpatient (CLI) | payer MEDICARE, OTHER ==
--- NOTE | 2017-03-15 11:30 | CT ---
EXAM DESCRIPTION: CT ABDOMEN AND PELVIS WITHOUT AND WITH CONTRAST CLINICAL HISTORY: DIARRHEA COMPARISON: May 10, 2013 TECHNIQUE: CT of the abdomen and pelvis are performed prior to and during IV bolus administration of nonionic contrast. Oral contrast enhancement was not utilized This exam was performed according to our departmental dose-optimization program, which includes automated exposure control, adjustment of the mA and/or kV according to patient size and/or use of iterative reconstruction technique. FINDINGS: Elevated lung bases and compressive atelectasis and patchy infiltrative change in each posterior lung bases right greater than left is present without significant pleural effusion. An eventration or focal bulge of the right hemidiaphragm anteriorly with notching of the dome of the liver is noted and presumably represents a chronic finding. Radial megaly with previous sternotomy is noted. An indwelling permanent pacer or ICD is noted. Noncontrast imaging demonstrates a lobulated liver with prominence of the left lobe and moderate splenomegaly. The right kidney is atrophic. A small fat-containing umbilical hernia is present with an oval approximate 2.5 x 1.5 cm soft tissue nodule within this that does not represent a loop of bowel. An enlarged lymph node or a small loculated pocket of fluid would be a consideration but ascites elsewhere within the abdomen and pelvis is not apparent. This lies just deep to the skin at the superior margin of the umbilicus. Correlation with any palpable abnormality at this location is recommended. Sonography of the anterior abdominal wall at at and just cephalad to the umbilicus may further characterize this finding. Contrast enhanced examination demonstrates homogeneous enhancement of the liver and spleen with moderate splenomegaly and no focal hepatic lesions. The appearance of the liver suggests moderate cirrhosis without marked decrease in size of the liver. Significant varices to confirm portal hypertension is not apparent. The splenic and portal vein appear patent. The spleen is modestly atrophic. Small bowel loops are normal in caliber without evidence of obstruction or acute inflammation the gallbladder is distended with a multiple small stones layering dependently without ductal dilation The left kidney enhances normally and the left adrenal gland is normal in appearance. Moderate atrophy of the right kidney with a prominent extrarenal pelvis is noted. Mild oval enlargement of the lateral limb of the right adrenal gland most suggestive of a benign adenoma with diminished density is present. This is unchanged from April 2013 study. A previous suspected cyst of the lower pole right kidney is no longer apparent. Delayed imaging demonstrates normal renal function bilaterally with no evidence of caliectasis or obstruction on either side. Continuing into the pelvis the bladder is normally distended and Barton catheter in place and diverticulosis of the colon is present without acute inflammation. Atherosclerotic calcification of the nondilated aorta is noted with no evidence of retroperitoneal adenopathy. Advanced disc degenerative changes at L5-S1 with grade 2 spondylolisthesis and bilateral L5 pars defects are noted. Significant degenerative disc disease at the three levels above this with normal alignment is evident. IMPRESSION: 1. Bibasilar atelectatic and/or inflammatory changes in each posterior lung bases right greater than left. 2. Cirrhosis of the liver and splenomegaly without convincing evidence of portal hypertension or liver failure 3. Cholelithiasis 4. Small fat-containing umbilical hernia with a small 1.5 x 2.5 cm nodule within the hernia at the superior aspect of the umbilicus. Correlation with physical examination and consideration for sonographic evaluation recommended. This does not represent a loop of bowel. 5. Atrophic right kidney and stable probable benign adrenal adenoma lateral limb of the right adrenal gland, unchanged 2013. 6. Advanced degenerative changes of the spine with grade 2 spondylolisthesis at L5-S1. 7. Colonic diverticulosis without evidence of bowel obstruction or dilation or acute inflammation. Electronically signed by: Butch Bravo MD 03/15/2017 11:29 AM GRINDING MACHINE OPERATOR AUTOMATIC
== END | disposition home or self-care (01) ==
LOC: CT 13:37
PROVIDERS: ATTEND Family Medicine
DX: R19.7 Diarrhea, unspecified (principal)

== ENCOUNTER 2017-03-31 13:10 | Inpatient (IN) | payer MEDICARE, OTHER ==
--- NOTE | 2017-03-31 13:41 | ED.PDOC ---
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 Timing/Duration: 1-3 hours Severity: moderate Improving Factors: nothing Worsening Factors: nothing Associated Symptoms: fever/chills, nausea/vomiting Allergies/Adverse Reactions: Allergies NO KNOWN ALLERGY Allergy (Verified 03/31/17 13:36) Home Medications: Ambulatory Orders Ascorbic Acid [Vitamin C] 500 mg PO DAILY #0 08/26/14 Atenolol [Tenormin] 50 mg PO DAILY 08/26/14 Cilostazol [Pletal] 100 mg PO BID 08/26/14 Duloxetine HCl [Cymbalta] 120 mg PO DAILY 08/26/14 Furosemide 40 mg PO DAILY 08/26/14 Oxybutynin Chloride [Oxybutynin Chloride ER] 5 mg PO DAILY 08/26/14 Pantoprazole Sodium 40 mg PO DAILY 08/26/14 Temazepam 30 mg PO BEDTIME 08/26/14 Trazodone HCl 150 mg PO BEDTIME 08/26/14 Aripiprazole 20 mg PO DAILY 01/16/17 Cetirizine HCl [Zyrtec] 10 mg PO DAILY 01/16/17 Fluticasone Prop 0.05% Nasal [Flonase Nasal [place]] 2 spray INH DAILY 01/16/17 Lactobacillus [Acidophilus Lactobacilli] 1 cap PO TID 01/16/17 cloNAZepam [Klonopin] 0.25 mg PO BID 01/16/17 Ipratropium/Albuterol [Duoneb] 3 ml NEB RTQID 01/20/17 Valsartan [Diovan] 160 mg PO DAILY #60 tablet 01/20/17 guaiFENesin ER TAB [Mucinex Tab] 600 mg PO BID 01/20/17 Acetamin W/Cod #3 Tab [Tylenol #3 Tab] 1 ea PO Q4-6H PRN #20 tab 02/11/17 Insulin Glargine [Lantus Solostar] 10 unit SC BEDTIME #1 pack 02/11/17 Albuterol Sulfate Nebs [Proventil Nebs] 2.5 mg NEB BID PRN 03/31/17 Arformoterol Tartrate Nebs [Brovana Nebs] 15 mcg NEB QID PRN 03/31/17 Clonidine HCl 0.1 mg PO Q4H PRN 03/31/17 Review of Systems - Review of Systems Constitutional: States: see HPI, fever Gastrointestinal/Abdominal: States: see HPI, vomiting Unable to Obtain Due To: condition, clinical condition Past Medical History (General) - Patient Medical History Hx Cardiac Disorders: Yes Hx Congestive Heart Failure: Yes - CAD, Hyperlipidema, hypercholesterolemia Hx Pacemaker: Yes Hx Hypertension: Yes Hx Diabetes: Yes Hx Gastroesophageal Reflux: Yes Hx Renal Disease: Yes Hx MRSA: No Surgical History: coronary bypass surgery, pacemaker - Vaccination History Hx Influenza Vaccination: Yes Hx Pneumococcal Vaccination: Yes - Social History Hx Tobacco Use: No - Activities of Daily Living Retirement/Assisted Living (if applicable):: [facility] Family Medical History - Family History Father Family History: Unknown Physical Exam - Physical Exam General Appearance: Alert, No apparent distress Eye Exam: bilateral normal Ears, Nose, Throat: hearing grossly normal, normal ENT inspection, normal pharynx Neck: non-tender, full range of motion, supple, normal inspection Respiratory: no respiratory distress, decreased breath sounds, rhonchi Cardiovascular/Chest: normal peripheral pulses, regular rate, rhythm, no gallop , no murmur Peripheral Pulses: radial,right: 2+, radial,left: 2+ Gastrointestinal/Abdominal: normal bowel sounds, non tender, soft, no organomegaly Extremity: no pedal edema, no calf tenderness Neurologic: alert Progress - Progress Progress: 03/31/17 14:42 Last Vital Signs Temp 102.1 F H 03/31/17 13:21 Pulse 60 03/31/17 13:21 Resp 24 03/31/17 13:21 BP 99/49 03/31/17 13:21 Pulse Ox 92 L 03/31/17 13:21 - Results/Orders Results/Orders: Laboratory Tests 03/31/17 03/31/17 03/31/17 13:50 13:50 13:50 WBC 18.3 H RBC 4.21 L Hgb 12.6 L Hct 38.5 L MCV 91.5 MCH 29.9 MCHC 32.9 L RDW 14.8 H Plt Count 329 MPV 7.6 Absolute Neuts (auto) 16.00 H Absolute Lymphs (auto) 0.90 L Absolute Monos (auto) 1.30 H Absolute Eos (auto) 0.00 Absolute Basos (auto) 0.00 Neutrophils % 87.5 H Lymphocytes % 5.2 L Monocytes % 7.0 Eosinophils % 0.1 L Basophils % 0.2 Sodium 136 Potassium 4.5 Chloride 100 L Carbon Dioxide 23 Anion Gap 17.5 BUN 67 H Creatinine 2.93 H BUN/Creatinine Ratio 22.9 H Random Glucose 173 H Serum Osmolality 295.5 H Lactic Acid 1.0 Calcium 8.6 Total Bilirubin 1.1 H AST 27 ALT 22 Alkaline Phosphatase 161 H Troponin I B-Natriuretic Peptide Serum Total Protein 7.8 Albumin 3.6 Globulin 4.2 H Albumin/Globulin Ratio 0.9 L Lipase 19 L Urine Color Urine Appearance Urine pH Ur Specific [place] Urine Protein Urine Glucose (UA) Urine Ketones Urine Blood Urine Nitrite Urine Bilirubin Urine Urobilinogen Ur Leukocyte Esterase Urine RBC Urine WBC Ur Epithelial Cells Urine Bacteria 03/31/17 03/31/17 03/31/17 14:00 14:38 14:38 WBC RBC Hgb Hct MCV MCH MCHC RDW Plt Count MPV Absolute Neuts (auto) Absolute Lymphs (auto) Absolute Monos (auto) Absolute Eos (auto) Absolute Basos (auto) Neutrophils % Lymphocytes % Monocytes % Eosinophils % Basophils % Sodium Potassium Chloride Carbon Dioxide Anion Gap BUN Creatinine BUN/Creatinine Ratio Random Glucose Serum Osmolality Lactic Acid Calcium Total Bilirubin AST ALT Alkaline Phosphatase Troponin I 0.03 B-Natriuretic Peptide 343.0 H* Serum Total Protein Albumin Globulin Albumin/Globulin Ratio Lipase Urine Color Yellow Urine Appearance Cloudy Urine pH 8.5 H Ur Specific [place] 1.015 Urine Protein 100 H Urine Glucose (UA) Negative Urine Ketones Negative Urine Blood Large H Urine Nitrite Negative Urine Bilirubin Negative Urine Urobilinogen 1.0 Ur Leukocyte Esterase Large H Urine RBC 10-20 H Urine WBC 10-20 H Ur Epithelial Cells 0 Urine Bacteria 2+ H - EKG/XRAY/CT EKG: Sinus Comments: HR-60 pacemaker XRAY: chest - pulmonary vascular congestion,interstitial infiltrate lower lobe Departure - Departure Clinical Impression: Acute interstitial pneumonia Urinary tract infection Qualifiers: Urinary tract infection type: catheter-associated UTI Indwelling urinary catheter type: indwelling urethral catheter Encounter type: initial encounter Qualified Code(s): T83.511A - Infection and inflammatory reaction due to indwelling urethral catheter, initial encounter; N39.0 - Urinary tract infection , site not specified Vomiting Qualifiers: Vomiting type: unspecified Vomiting Intractability: non-intractable Nausea presence: unspecified Qualified Code(s): R11.10 - Vomiting, unspecified Fever Qualifiers: Fever type: due to other condition Qualified Code(s): R50.81 - Fever presenting with conditions classified elsewhere Diabetes Qualifiers: Diabetes mellitus type: type 2 Diabetes mellitus complication status: with kidney complications Diabetes mellitus complication detail: with chronic kidney disease Diabetes mellitus buttermilk drier operator insulin use: unspecified buttermilk drier operator insulin use status Chronic kidney disease stage: stage 3 (moderate) Qualified Code(s): E11.22 - Type 2 diabetes mellitus with diabetic chronic kidney disease; N18.3 - Chronic kidney disease, stage 3 (moderate) Time of Disposition: 15:25 Disposition: Admit Patient Condition: Fair Departure Forms: ED Discharge - Pt. Copy, Patient Portal Self Enrollment Referrals: Carroll Russo MD [Primary Care Provider] - 1-2 Weeks Home Medications: Ambulatory Orders Ascorbic Acid [Vitamin C] 500 mg PO DAILY #0 08/26/14 Atenolol [Tenormin] 50 mg PO DAILY 08/26/14 Cilostazol [Pletal] 100 mg PO BID 08/26/14 Duloxetine HCl [Cymbalta] 120 mg PO DAILY 08/26/14 Furosemide 40 mg PO DAILY 08/26/14 Oxybutynin Chloride [Oxybutynin Chloride ER] 5 mg PO DAILY 08/26/14 Pantoprazole Sodium 40 mg PO DAILY 08/26/14 Temazepam 30 mg PO BEDTIME 08/26/14 Trazodone HCl 150 mg PO BEDTIME 08/26/14 Aripiprazole 20 mg PO DAILY 01/16/17 Cetirizine HCl [Zyrtec] 10 mg PO DAILY 01/16/17 Fluticasone Prop 0.05% Nasal [Flonase Nasal [place]] 2 spray INH DAILY 01/16/17 Lactobacillus [Acidophilus Lactobacilli] 1 cap PO TID 01/16/17 cloNAZepam [Klonopin] 0.25 mg PO BID 01/16/17 Ipratropium/Albuterol [Duoneb] 3 ml NEB RTQID 01/20/17 Valsartan [Diovan] 160 mg PO DAILY #60 tablet 01/20/17 guaiFENesin ER TAB [Mucinex Tab] 600 mg PO BID 01/20/17 Acetamin W/Cod #3 Tab [Tylenol #3 Tab] 1 ea PO Q4-6H PRN #20 tab 02/11/17 Insulin Glargine [Lantus Solostar] 10 unit SC BEDTIME #1 pack 02/11/17 Albuterol Sulfate Nebs [Proventil Nebs] 2.5 mg NEB BID PRN 03/31/17 Arformoterol Tartrate Nebs [Brovana Nebs] 15 mcg NEB QID PRN 03/31/17 Clonidine HCl 0.1 mg PO Q4H PRN 03/31/17 Decision To Admit - Decistion To Admit Decision to Admit Reason: Admit from ER - uti,interstitial pna,fever Decision to Admit Date: 03/31/17 Decision to Admit Time: 15:20 - D/W Dolores Clarke-URSZULA/Hospitalist
[2017-03-31] MEDS ORDERED: SODIUM CHLORIDE 0.9% 500ML 500 ML IVS ONE (13:43)
--- NOTE | 2017-03-31 14:15 | RAD ---
EXAM DESCRIPTION: Chest,1 View CLINICAL HISTORY: fever COMPARISON: January 19, 2017 Findings: Single upright portable frontal view of the chest. Dual-lead left chest cardiac pacemaker is present. Post CABG changes with median sternotomy wires. Cardiac silhouette shows cardiomegaly with central pulmonary vascular congestion and interstitial edema. Evaluation of the lung bases are limited due to patient's body habitus and technique with decreased penetration. Given this limitation, there opacities in the bilateral lower lung zones and left retrocardiac region. This may be due to pulmonary edema versus infiltrate versus atelectasis. No pneumothorax. IMPRESSION: 1. Cardiomegaly with central pulmonary vascular congestion and interstitial edema with possible pulmonary edema, compatible with congestive heart failure. 2. Opacities in the bilateral lower lung zones and left retrocardiac region may represent pulmonary edema versus infiltrate versus atelectasis. Electronically signed by: Chilango Arriaga MD 03/31/2017 2:13 PM LIFTER
[2017-03-31] MEDS: IPRATROPIUM/ALBUTEROL 3 ML VIAL NEB ONE ×2 (14:40→16:20)
[2017-03-31] MEDS ORDERED: BUMETANIDE 0.25 MG/ML VIAL IV ONE (14:47)
[2017-03-31] MEDS ORDERED: MEROPENEM 500 MG in SODIUM CHL 0.9% 50ML MIN-BAG+ 50 ML IVPB ONE (15:10)
[2017-03-31] MEDS ORDERED: SODIUM CHL 0.9% 50ML MIN-BAG+ 50 ML IVPB ONE ×3 (15:12→19:35)
[2017-03-31] MEDS ORDERED: MEROPENEM 500 MG VIAL IVPB ONE ×3 (15:12→19:35)
--- NOTE | 2017-03-31 15:45 | HP ---
SUPERVISING PHYSICIAN: Butch Haider MD CHIEF COMPLAINT: Shortness of breath, nausea and vomiting. HISTORY OF PRESENT ILLNESS: This is a 76 year-old male who was brought to the Emergency Room by EMS from [facility]. He had a fever of 102 and he had vomited several times during the day. He has schizoaffective disorder and has a difficult time answering any questions appropriately. He does have a significant history of chronic renal disease and has a chronic indwelling catheter and in the Emergency Room he was found to have a urinary tract infection with a large amount of urine leukocyte esterase, 10 to 20 urine RBCs, 10 to 20 WBCs and urine bacteria that was 2+. His chest x-ray per radiology interpretation showed cardiomegaly with central pulmonary vascular congestion with an interstitial edema with possible pulmonary edema that is compatible with congestive heart failure. He also has opacities in the bilateral lower lung zones and left retrocardiac region that may represent pulmonary edema versus infiltrate versus atelectasis. He had leukocytosis with a WBC of 18,300 and hemoglobin of 12.6 with hematocrit of 38.5. His platelet count was 329,000, he did have a left shift with neutrophils at 87.5. Sodium was 136, potassium 4.5, chloride 100, BUN 67, creatinine 2.93. Serum osmolality was 295.5, random glucose of 173, a mildly elevated total bilirubin of 1.1 and alkaline phosphatase was 161. BNP was 343, lactic acid of 1. Blood cultures were drawn as well as a urine culture was sent. Merrem was started and I was called for admission to the hospital. PAST MEDICAL HISTORY: 1. Coronary artery disease. 2. Chronic obstructive pulmonary disease. 3. Chronic kidney disease. 4. Hypertension. 5. Gastroesophageal reflux disease. 6. Anxiety. 7. Hyperlipidemia. 8. Diabetes mellitus type 2. 9. Mental retardation. 10. Peripheral vascular disease. 11. Osteoarthritis. PAST SURGICAL HISTORY: 1. Coronary artery stent placement in 2005. 2. Tonsillectomy. 3. Coronary artery bypass graft, 3 vessels in 2009. 4. Pacemaker implantation. OUTPATIENT MEDICATIONS: Per the EMR and awaiting verification. ALLERGIES: NO KNOWN DRUG ALLERGIES. FAMILY HISTORY: SOCIAL HISTORY: He is disabled, he is single. He lives at [facility]. He denies any smoking, ETOH or illicit drug use. REVIEW OF SYSTEMS: GENERAL: Positive for fatigue and fever, negative for weight changes. HEENT: Positive for nasal congestion, negative for vision changes or sore throat. RESPIRATORY: Positive for shortness of breath and chest congestion. Negative for wheezing. CARDIAC: Negative for chest pain, palpitations or tachycardia. GI: Positive for nausea and vomiting, negative for diarrhea or constipation. NEURO: Negative for headaches, dizziness or seizures. PHYSICAL EXAMINATION: VITAL SIGNS: Temperature on admission was 102.1, it is now 98.5. Pulse rate 68, blood pressure 83/40, respiratory rate was as high as 24 breaths per minute , it is now 20 breather per minute. His 02 saturation 92%. GENERAL: This is a 76 year-old obese male patient who is lying in his hospital bed. He is in mild respiratory distress. HEENT: Normocephalic and atraumatic. Pupils are equal and reactive. Oropharynx is clear. NECK: Supple without masses. CHEST: Bilateral crackles throughout, diminished at the bases. At times he is slightly tachypneic. Chest has equal rise and fall with inspiration and expiration. CARDIOVASCULAR: ABDOMEN: He is obese. Soft, nondistended, non-tender. Bowel sounds are positive. EXTREMITIES: No cyanosis or clubbing but he has bilateral plus 1 pedal edema. NEUROLOGIC: He is awake and alert, he is oriented x3 but he has a difficult time answering simple questions. LABORATORY AND FILMS: As per the history of present illness. ASSESSMENT: 1. Severe sepsis with a temperature of 102.1, respiratory rate of 24, leukocytosis with WBCs of 18,300 with a urinary tract infection and bilateral interstitial pneumonia with a systolic blood pressure in the 80s. 2. Urosepsis. 3. Bilateral lower lobe interstitial pneumonia. 4. Pulmonary edema. 5. Elevated BNP with no noted history of congestive heart failure. 6. Chronic kidney disease. 7. Diabetes mellitus type 2. 8. Gastroesophageal reflux disease. 9. Coronary artery disease. 10. Mild mental retardation. PLAN: We will admit the patient to the hospital. He has received several liters of fluid and I will gently diurese him but we will need to watch his blood pressure closely. He has also been started on Meropenem for his pneumonia as well as his urinary tract infection. His Barton catheter has been replaced and I did a urinalysis and a culture after placement of the new chronic indwelling catheter. I will repeat his chest x-ray in the morning after we start his home medications. I will hold his blood pressure medicine and his oral Lasix. We will reevaluate and start those tomorrow. Protonix has been started for ulcer prophylaxis and Lovenox for DVT prophylaxis. I will need to call the clinic to see if there is an echocardiogram on file. If there is not, it would be beneficial to get an echocardiogram at some point. He is on an ARB and beta ethel but those are held for now. We will continue to monitor him closely and follow as needed. Dr. Leija is the collaborating physician and available for consultation [facility][id number] [facility]
[2017-03-31] MEDS ORDERED: SODIUM CHLORIDE 0.9% 1000ML 1,000 ML ONE (16:30)
[2017-03-31] MEDS ORDERED: SODIUM CHLORIDE 0.9% 1000ML 1,000 ML IVS ONE (16:32)
[2017-03-31] MEDS ORDERED: SODIUM CHLORIDE 0.9% (FLUSH) 10 ML SYG IV PRN (16:53)
[2017-03-31] MEDS ORDERED: ALBUTEROL SULFATE 2.5 MG/3 ML VIAL NEB PRN (16:56)
[2017-03-31] MEDS ORDERED: ENOXAPARIN SODIUM 40 MG/0.4 ML SYG SUBCU SCH (17:00)
[2017-03-31] MEDS ORDERED: DEXTROSE 50% 25 GM/50 ML SYG IV PRN (17:03)
[2017-03-31] MEDS ORDERED: GLUCAGON INJ 1 MG VIAL SUBCU PRN (17:03)
[2017-03-31] MEDS: IV SET AND CAP CHANGE INJ INJ SCH (17:16)
[2017-03-31] MEDS ORDERED: ENOXAPARIN SODIUM 40 MG/0.4 ML SYG SUBCU ONE (17:28)
[2017-03-31] MEDS: PANTOPRAZOLE SODIUM IV 40 MG VIAL IV SCH (17:30)
[2017-03-31] MEDS ORDERED: IPRATROPIUM/ALBUTEROL 3 ML VIAL INH SCH (20:00)
[2017-03-31] MEDS: SODIUM CHLORIDE 0.9% (FLUSH) 10 ML SYG IV SCH (20:39)
[2017-03-31] MEDS: INSULIN LISPRO 100 UNITS/ML PEN SUBCU SCH (20:52)
[2017-03-31] MEDS ORDERED: ACETAMINOPHEN W/COD #3 TAB 1 EA TAB PO PRN (21:34)
[2017-03-31] MEDS: MEROPENEM 500 MG in SODIUM CHL 0.9% 50ML MIN-BAG+ 50 ML IVPB SCH (21:42)
[2017-03-31] MEDS ORDERED: FUROSEMIDE INJ 40 MG/4 ML VIAL IV ONE (22:24)
[2017-04-01] MEDS: MEROPENEM 500 MG in SODIUM CHL 0.9% 50ML MIN-BAG+ 50 ML IVPB SCH ×3 (06:03→21:48)
[2017-04-01] MEDS: INSULIN LISPRO 100 UNITS/ML PEN SUBCU SCH ×4 (07:19→21:13)
--- NOTE | 2017-04-01 07:38 | RAD ---
EXAM: Single view chest. INDICATION: Pneumonia. COMPARISON: Chest x-ray: 03/31/2017. FINDINGS: There is pulmonary vascular congestion with interstitial edema. There is elevation the right hemidiaphragm. Small pleural effusions may be present. The heart is enlarged with a left chest wall pacemaker in place. There is no pneumothorax. The bones are unchanged IMPRESSION: CHF exacerbation Electronically signed by: Chauncey Epperson MD 04/01/2017 7:37 AM DOWELING MACHINE OPERATOR Workstation: [id number]
[2017-04-01] MEDS: IPRATROPIUM/ALBUTEROL 3 ML VIAL NEB SCH ×4 (08:45→20:05)
[2017-04-01] MEDS: ARFORMOTEROL TARTRATE 15 MCG/2 ML NEB NEB SCH ×2 (08:45→20:05)
[2017-04-01] MEDS ORDERED: FUROSEMIDE 40 MG TAB PO SCH (09:00)
[2017-04-01] MEDS: DULoxetine HCL 30 MG CAP PO SCH (09:29)
[2017-04-01] MEDS: ARIPiprazole 5 MG TAB PO SCH (09:29)
[2017-04-01] MEDS: guaiFENesin ER TAB 600 MG TAB PO SCH ×2 (09:30→20:51)
[2017-04-01] MEDS: CILOSTAZOL 100 MG TAB PO SCH ×2 (09:30→20:54)
[2017-04-01] MEDS: NYSTATIN POWDER 15GM BTTL TOP SCH ×2 (09:30→20:51)
[2017-04-01] MEDS: BIFIDOBACTERIUM INFANTIS 4 MG CAP PO SCH ×3 (09:30→20:51)
[2017-04-01] MEDS: CETIRIZINE HCL 10 MG TAB PO SCH (09:30)
[2017-04-01] MEDS: FLUTICASONE PROP 0.05% NASAL 16 GM BTTL BNAS SCH (09:30)
[2017-04-01] MEDS: OXYBUTYNIN CL 5 MG TAB PO SCH (09:30)
[2017-04-01] MEDS: SODIUM CHLORIDE 0.9% (FLUSH) 10 ML SYG IV SCH ×2 (09:31→20:52)
[2017-04-01] MEDS: FUROSEMIDE INJ 40 MG/4 ML VIAL IV SCH ×2 (09:35→18:04)
[2017-04-01] MEDS: ELUXADOLINE 100 MG PO SCH ×2 (09:42→20:51)
--- NOTE | 2017-04-01 13:02 | PN ---
DATE: 04/01/17 SUPERVISING PHYSICIAN: Butch Haider M.D. SUBJECTIVE: The patient is lying in his bed. He is asleep. He awakens easily. He is [id number]. Feels somewhat better today. No complaints of chest pain, nausea, vomiting or diarrhea. He complains of cough but it is difficult to determine if he is coughing anything up. OBJECTIVE: VITAL SIGNS: He is afebrile, heart rate 61, blood pressure 100/61, respiratory rate 20 but has gone as high as 22, O2 sat is 92 to 93% on 2 liters nasal cannula. I's and O's show that he is still in a positive balance of 1200 mL in the past 24 hours. RESPIRATORY: Scattered crackles throughout, somewhat diminished at the bases. Slightly improved from yesterday. CARDIAC: Regular rate and rhythm. ABDOMEN: Soft, nondistended, non-tender. Bowel sounds are positive. EXTREMITIES: No cyanosis, clubbing, or edema. NEUROLOGIC: He is awake and alert. He is oriented to person and place. He can answer some simple yes/no questions appropriately. LABORATORY: WBCs have improved to 12,900, hemoglobin 10.8, hematocrit 32.9, platelets 237. Neutrophils have improved to 76.6%. Blood sugars have run between 128 and 158. Electrolytes are basically within normal limits but his creatinine has slightly worsened to 3.31 and BUN is 75. Bilirubin is down to 0.7 and alkaline phosphatase is down to 116. Preliminary urine culture both pre Barton catheter replacement and post catheter replacement are showing gram- negative rods. Preliminary blood cultures are negative to date. RADIOLOGY: Chest x-ray per radiology interpretation shows congestive heart failure exacerbation. All other labs and films have been reviewed via the EMR. ASSESSMENT: 1. Severe sepsis with a temperature of 102.1, respiratory rate 24, leukocytosis with a WBC of 18,300, urinary tract infection, bilateral interstitial pneumonia and a systolic blood pressure in the 80s on admission. His symptoms have improved as he has been afebrile. His leukocytosis has improved and his systolic blood pressure is up to 100. 2. Urosepsis. 3. Bilateral lower lobe interstitial pneumonia that has improved. 4. Pulmonary edema. 5. Elevated BNP with no noted history of congestive heart failure. 6. Chronic kidney disease. 7. Diabetes mellitus type 2. 8. Gastroesophageal reflux disease. 9. Coronary artery disease. 10. Mild mental retardation. PLAN: We will continue present supportive care, including good pulmonary hygiene. He will continue with his Merrem and we will monitor cultures as they become available. His blood pressure has somewhat stabilized now. I have given him IV Lasix. Hopefully we can continue to diurese him and eventually restart his home po Lasix. I have not restarted his blood pressure medicines at this time due to his blood pressure being somewhat low. We may have to make adjustments on his blood pressure medications. His ARB may need to be discontinued due to his renal failure. We will need to get an echocardiogram if there is one available from [facility]. I have ordered routine labs and a chest x- ray for in the morning. I have also ordered some Mucinex to help with the congestion and cough. We will continue to monitor him closely and follow as needed. Dr. Haider is the collaborating physician available for consultation. #[id number] [facility]
[2017-04-01] MEDS ORDERED: MEROPENEM 500 MG VIAL IVPB ONE ×2 (14:40→20:09)
[2017-04-01] MEDS ORDERED: SODIUM CHL 0.9% 50ML MIN-BAG+ 50 ML IVPB ONE ×2 (14:40→20:08)
[2017-04-01] MEDS ORDERED: ENOXAPARIN SODIUM 30 MG/0.3 ML SYG SUBCU ONE (14:40)
[2017-04-01] MEDS: ENOXAPARIN SODIUM 30 MG/0.3 ML SYG SUBCU SCH (18:03)
[2017-04-01] MEDS: PANTOPRAZOLE SODIUM IV 40 MG VIAL IV SCH (18:03)
[2017-04-01] MEDS: INSULIN DETEMIR 100 UNITS/ML PEN SUBCU SCH (21:13)
[2017-04-01] MEDS ORDERED: FUROSEMIDE INJ 40 MG/4 ML VIAL IV ONE (22:06)
[2017-04-02] MEDS ORDERED: MEROPENEM 500 MG VIAL IVPB ONE ×3 (05:28→19:59)
[2017-04-02] MEDS ORDERED: SODIUM CHL 0.9% 50ML MIN-BAG+ 50 ML IVPB ONE ×3 (05:28→19:58)
[2017-04-02] MEDS ORDERED: ALUMINUM & MAGNESIUM HYDROXIDE 30 ML UD PO PRN (05:31)
[2017-04-02] MEDS: MEROPENEM 500 MG in SODIUM CHL 0.9% 50ML MIN-BAG+ 50 ML IVPB SCH ×3 (05:44→22:35)
--- NOTE | 2017-04-02 07:13 | RAD ---
EXAM: Single view chest. INDICATION: CHF. COMPARISON: Chest x-ray: 04/01/2017. FINDINGS: There is pulmonary vascular congestion. There is a right basilar airspace opacity. There is no pneumothorax. Small pleural effusions may be present. The heart is enlarged with a left chest wall pacemaker in place. IMPRESSION: Mild pulmonary vascular congestion. Right basilar airspace opacity, likely representing atelectasis Electronically signed by: Chauncey Epperson MD 04/02/2017 7:12 AM SENIOR POWER SCHEDULER Workstation: [id number]
[2017-04-02] MEDS: INSULIN LISPRO 100 UNITS/ML PEN SUBCU SCH ×4 (07:43→21:15)
[2017-04-02] MEDS: IPRATROPIUM/ALBUTEROL 3 ML VIAL NEB SCH ×4 (08:07→20:19)
[2017-04-02] MEDS: ARFORMOTEROL TARTRATE 15 MCG/2 ML NEB NEB SCH ×2 (08:07→20:19)
[2017-04-02] MEDS: CETIRIZINE HCL 10 MG TAB PO SCH (09:45)
[2017-04-02] MEDS: DULoxetine HCL 30 MG CAP PO SCH (09:45)
[2017-04-02] MEDS: ELUXADOLINE 100 MG PO SCH ×2 (09:46→21:40)
[2017-04-02] MEDS: FUROSEMIDE INJ 40 MG/4 ML VIAL IV SCH ×2 (09:46→17:25)
[2017-04-02] MEDS: BIFIDOBACTERIUM INFANTIS 4 MG CAP PO SCH ×3 (09:46→21:10)
[2017-04-02] MEDS: guaiFENesin ER TAB 600 MG TAB PO SCH ×2 (09:46→21:11)
[2017-04-02] MEDS: CILOSTAZOL 100 MG TAB PO SCH ×2 (09:46→21:11)
[2017-04-02] MEDS: NYSTATIN POWDER 15GM BTTL TOP SCH ×2 (09:46→21:11)
[2017-04-02] MEDS: OXYBUTYNIN CL 5 MG TAB PO SCH (09:46)
[2017-04-02] MEDS: ARIPiprazole 5 MG TAB PO SCH (09:46)
[2017-04-02] MEDS: FLUTICASONE PROP 0.05% NASAL 16 GM BTTL BNAS SCH (09:47)
[2017-04-02] MEDS: SODIUM CHLORIDE 0.9% (FLUSH) 10 ML SYG IV SCH ×2 (09:47→21:12)
[2017-04-02] MEDS ORDERED: MAGNESIUM HYDROXIDE 30 ML UD PO ONE ×2 (11:26→16:00)
[2017-04-02] MEDS: ATENOLOL 25 MG TAB PO SCH ×2 (12:18→21:12)
--- NOTE | 2017-04-02 12:26 | PN ---
DATE: 04/02/17 SUPERVISING PHYSICIAN: Butch Haider M.D. SUBJECTIVE: The patient is lying in his hospital bed. He has no complaints of shortness of breath, nausea or vomiting, but he does complain of not having a bowel movement and his abdomen hurting. OBJECTIVE: T max 24 hours is 99.8, pulse rate 63, blood pressure 100/48, respiratory rate 22, O2 sat is 91% on 3 liters nasal cannula. I's and O's: The patient's input and output shows a negative balance of 2 liters. RESPIRATORY: A few scattered crackles throughout but improved since yesterday. No wheezing or rhonchi noted. CARDIAC: Regular rate and rhythm. ABDOMEN: Soft. It is mildly diffusely tender. Bowel sounds are positive. EXTREMITIES: No cyanosis, clubbing or edema. NEUROLOGIC: He is awake, alert and oriented to person and place. LABORATORY: WBCs have normalized to 9.2 with a stable hemoglobin and hematocrit of 10.9 and 21.9. Electrolytes are basically within normal limits with the exception of his creatinine is improved slightly to 2.94 with BUN 79. Glucose has run between 128 and 168. Both urine cultures are showing Proteus mirabilis sensitive to Merrem which he is presently on. Preliminary blood cultures show no growth after 24 hours. RADIOLOGY: Chest x-ray per radiology interpretation shows mild pulmonary vascular congestion with right basilar airspace opacity likely representing atelectasis. All other labs and films have been reviewed via the EMR. ASSESSMENT: 1. Severe sepsis with a temperature of 102.1, respiratory rate of 24, leukocytosis with a WBC of 18,300, urinary tract infection, bilateral interstitial pneumonia, and a systolic blood pressure in the 80s on admission. His symptoms have improved. His WBCs have now normalized. He does have a low-grade temperature of 99.3 and his systolic blood pressure continues to run in the 100s to 110s. 2. Urosepsis. 3. Bilateral lower lobe interstitial pneumonia that has improved. 4. Pulmonary edema. 5. Elevated BNP with no noted history of congestive heart failure. 6. Chronic kidney disease. 7. Diabetes mellitus type 2. 8. Gastroesophageal reflux disease. 9. Coronary artery disease. 10. Mild mental retardation. PLAN: We will continue present supportive care. I have scheduled 2 doses of Milk of Magnesia to help with the constipation. We will continue his IV Lasix through today and his p.o. Lasix from his home medications will be started in the morning. I have discontinued his Valsartan due to his kidney function and I have also discontinued his routine dosing of Atenolol which was 50 mg daily. I started him back on the Atenolol at a very low dose of 12.5 mg. I have ordered routine labs and chest x-ray in the morning. Continue to encourage good pulmonary hygiene. He will need an echocardiogram at some point or we need to find an old echocardiogram from [facility] on Monday if possible. He may have an echocardiogram on file but we do not have it here at the hospital. He also has an indwelling catheter that he keeps at [facility]. Otherwise we will continue to monitor the patient closely and follow as needed. Dr. Haider is the collaborating physician available for consultation. #[id number] [facility]
[2017-04-02] MEDS: ENOXAPARIN SODIUM 30 MG/0.3 ML SYG SUBCU SCH (17:25)
[2017-04-02] MEDS: PANTOPRAZOLE SODIUM IV 40 MG VIAL IV SCH (17:26)
[2017-04-02] MEDS: INSULIN DETEMIR 100 UNITS/ML PEN SUBCU SCH (21:11)
[2017-04-02] MEDS: ONDANSETRON INJ 4 MG/2 ML VIAL IV PRN (21:32)
[2017-04-03] MEDS ORDERED: SODIUM CHL 0.9% 50ML MIN-BAG+ 50 ML IVPB ONE ×3 (02:51→23:13)
[2017-04-03] MEDS ORDERED: MEROPENEM 500 MG VIAL IVPB ONE (02:51)
[2017-04-03] MEDS: MEROPENEM 500 MG in SODIUM CHL 0.9% 50ML MIN-BAG+ 50 ML IVPB SCH (06:13)
--- NOTE | 2017-04-03 07:04 | RAD ---
EXAM: Single view chest. INDICATION: CHF. COMPARISON: Chest x-ray: 04/02/2017. FINDINGS: There is a retrocardiac airspace opacity. The heart is enlarged with a left chest wall pacemaker in place. There is elevation the right hemidiaphragm. There is no pneumothorax. Small pleural effusions may be present. The bones are unchanged. IMPRESSION: Retrocardiac airspace opacity Electronically signed by: Chauncey Epperson MD 04/03/2017 7:03 AM [facility] Workstation: [id number]
[2017-04-03] MEDS: INSULIN LISPRO 100 UNITS/ML PEN SUBCU SCH ×4 (07:15→23:22)
[2017-04-03] MEDS: CETIRIZINE HCL 10 MG TAB PO SCH (08:46)
[2017-04-03] MEDS: SODIUM CHLORIDE 0.9% (FLUSH) 10 ML SYG IV SCH ×2 (08:46→23:31)
[2017-04-03] MEDS: DULoxetine HCL 30 MG CAP PO SCH (08:46)
[2017-04-03] MEDS: CILOSTAZOL 100 MG TAB PO SCH ×2 (08:46→23:29)
[2017-04-03] MEDS: FUROSEMIDE 40 MG TAB PO SCH (08:47)
[2017-04-03] MEDS: ARIPiprazole 5 MG TAB PO SCH (08:47)
[2017-04-03] MEDS: ATENOLOL 25 MG TAB PO SCH ×2 (08:47→23:29)
[2017-04-03] MEDS: OXYBUTYNIN CL 5 MG TAB PO SCH (08:47)
[2017-04-03] MEDS: guaiFENesin ER TAB 600 MG TAB PO SCH ×2 (08:47→23:29)
[2017-04-03] MEDS: BIFIDOBACTERIUM INFANTIS 4 MG CAP PO SCH ×3 (08:48→23:29)
[2017-04-03] MEDS: ELUXADOLINE 100 MG PO SCH (08:48)
[2017-04-03] MEDS: NYSTATIN POWDER 15GM BTTL TOP SCH ×2 (08:48→23:30)
[2017-04-03] MEDS: FLUTICASONE PROP 0.05% NASAL 16 GM BTTL BNAS SCH (09:14)
[2017-04-03] MEDS: ARFORMOTEROL TARTRATE 15 MCG/2 ML NEB NEB SCH ×2 (09:17→20:15)
[2017-04-03] MEDS: IPRATROPIUM/ALBUTEROL 3 ML VIAL NEB SCH ×4 (09:17→20:15)
[2017-04-03] MEDS ORDERED: cefTRIAXone SODIUM 1 GM VIAL ONE ×2 (11:15→23:14)
[2017-04-03] MEDS: cefTRIAXone SODIUM 1 GM in SODIUM CHL 0.9% 50ML MIN-BAG+ 50 ML IVPB SCH ×2 (11:30→23:30)
[2017-04-03] MEDS: PANTOPRAZOLE SODIUM TAB 40 MG PO SCH (17:52)
[2017-04-03] MEDS: IV SET AND CAP CHANGE INJ INJ SCH (17:52)
--- NOTE | 2017-04-03 19:25 | PN ---
DATE: 04/03/17 SUBJECTIVE: The patient is lying in the bed and is requiring some assistance to be lifted higher in the bed so that he can more adequately participate with his pulmonary treatment program. He is fairly alert. He lives at [facility] and is getting to the point where he is ready to get back home. Appetite is fairly good. OBJECTIVE: Review of laboratory today shows hemoglobin is up to 11.7, white count is 9,400. Chemistry shows potassium 3.8 while BUN is 77 and creatinine is 2.23 which is coming down. Still with pyuria on last urinalysis which was performed 3 days ago and urine culture is positive for Proteus mirabilis species which is sensitive to most all choices except Nitro Bid and sulfa medications. His medication therefore will be changed from Meropenem to Ceftriaxone to be observed overnight and then consider home to [facility] on the third generation cephalosporin tomorrow as stable. Blood cultures have been negative. RADIOLOGY: X-ray performed today shows retrocardiac airspace opacity. ASSESSMENT: 1. Acute urosepsis with urinary tract infection showing positive culture of Proteus mirabilis with pansensitivity except for nitrofurantoin and sulfa medications. He presented with high fever, elevated respiratory rate, leukocytosis and hypotension with septic symptoms showing some steady improvement with treatment. 2. Bilateral lower lobe interstitial pneumonia showing some radiographic improvement. 3. History of pulmonary edema. 4. Elevated beta natriuretic peptide. 5. Chronic kidney disease. 6. Diabetes mellitus type 2 by history. 7. History of gastroesophageal reflux disease. 8. History of coronary artery disease. 9. Mild mental retardation. PLAN: Will continue with Ceftriaxone tonight parenterally and reevaluate in the morning. If stable, consider sending home on third generation cephalosporin or other choice with treatment to be continued at [facility] under assisted care observation and treatment support. Reevaluation in the morning. #[id number] [facility]
[2017-04-03] MEDS ORDERED: ENOXAPARIN SODIUM 30 MG/0.3 ML SYG SUBCU SCH (21:00)
[2017-04-03] MEDS: INSULIN DETEMIR 100 UNITS/ML PEN SUBCU SCH (23:23)
[2017-04-04] MEDS: ELUXADOLINE 100 MG PO SCH ×2 (00:59→10:21)
[2017-04-04] MEDS: PANTOPRAZOLE SODIUM TAB 40 MG PO SCH (06:35)
[2017-04-04] MEDS: INSULIN LISPRO 100 UNITS/ML PEN SUBCU SCH ×2 (07:27→12:28)
[2017-04-04] MEDS: ARFORMOTEROL TARTRATE 15 MCG/2 ML NEB NEB SCH (07:40)
[2017-04-04] MEDS: IPRATROPIUM/ALBUTEROL 3 ML VIAL NEB SCH ×2 (07:40→11:20)
[2017-04-04] MEDS: ONDANSETRON INJ 4 MG/2 ML VIAL IV PRN (09:02)
[2017-04-04] MEDS: ATENOLOL 25 MG TAB PO SCH (10:19)
[2017-04-04] MEDS: BIFIDOBACTERIUM INFANTIS 4 MG CAP PO SCH (10:19)
[2017-04-04] MEDS: guaiFENesin ER TAB 600 MG TAB PO SCH (10:19)
[2017-04-04] MEDS: CILOSTAZOL 100 MG TAB PO SCH (10:19)
[2017-04-04] MEDS: OXYBUTYNIN CL 5 MG TAB PO SCH (10:19)
[2017-04-04] MEDS: CETIRIZINE HCL 10 MG TAB PO SCH (10:19)
[2017-04-04] MEDS: FUROSEMIDE 40 MG TAB PO SCH (10:19)
[2017-04-04] MEDS: ARIPiprazole 5 MG TAB PO SCH (10:20)
[2017-04-04] MEDS: DULoxetine HCL 30 MG CAP PO SCH (10:20)
[2017-04-04] MEDS: NYSTATIN POWDER 15GM BTTL TOP SCH (10:21)
[2017-04-04] MEDS: FLUTICASONE PROP 0.05% NASAL 16 GM BTTL BNAS SCH (10:21)
[2017-04-04] MEDS: SODIUM CHLORIDE 0.9% (FLUSH) 10 ML SYG IV SCH (10:21)
[2017-04-04 10:47] VITALS: BP 150/72; TEMP 98.1
[2017-04-04] MEDS ORDERED: SODIUM CHL 0.9% 50ML MIN-BAG+ 50 ML IVPB ONE (10:48)
[2017-04-04] MEDS ORDERED: cefTRIAXone SODIUM 1 GM VIAL ONE (10:48)
[2017-04-04] MEDS: cefTRIAXone SODIUM 1 GM in SODIUM CHL 0.9% 50ML MIN-BAG+ 50 ML IVPB SCH (10:51)
--- NOTE | 2017-04-04 10:56 | DS ---
DISCHARGE DIAGNOSIS: 1. Acute urosepsis with urinary tract infection with culture positive for Proteus mirabilis with pansensitivity except for nitrofurantoin and sulfa medications. He presented with evidence of sepsis including high fever, elevated respiratory rate, leukocytosis and hypotension with steady improvement of symptoms as treatment progressed. 2. Bilateral lower lobe interstitial pneumonia, showing radiographic improvement and clinical improvement. 3. History of pulmonary edema. 4. Elevated beta natriuretic peptide. 5. Chronic renal disease. 6. Chronic congestive heart failure of undetermined etiology. 7. Diabetes mellitus, type 2, by history. 8. History of gastroesophageal reflux disease. 9. History of coronary artery disease. 10. Mild mental retardation, chronic. HISTORY OF PRESENT ILLNESS: This 76-year-old, white male is a resident of [facility]. He was sent to the Emergency Room by EMS because of a high fever of 102 and repeat vomiting. History of a schizoaffective disorder and somewhat confused. Evidence of a significant urinary tract infection was noted as well as vascular congestion and possible pulmonary edema on chest x- ray. Evidence of some bilateral lower lung infiltrates suggesting pneumonia was also followed closely in the hospital until it showed some improvement with a residual retrocardiac opacity at discharge with followup suggested. The patient was admitted to the hospital after blood cultures were obtained and started on pending culture results. LABORATORY: White count initially 18,300 with 88% neutrophils, decreasing to 9, 400 with 76% neutrophils after treatment. Hemoglobin was stable at 11.7. Chemistries showed potassium down to 3.8, while BUN was 77, creatinine 2.23 which was improved from 3.31. Glucose 170, down to 141. Osmolality elevated at 312 and encouraged to drink fluids. Liver enzymes otherwise normal. Beta natriuretic peptide 343, albumin 3. Urinalysis showed pyuria, hematuria and bacteruria. Blood cultures were negative while urine culture on two specimens before and after the change of a catheter revealed proteus mirabilis with relative pansensitivity except resistance noted to nitrofurantoin and sulfa medications. Influenza A/B test negative. RADIOLOGY: X-ray initially showed pulmonary vascular congestion with some cardiomegaly and some bilateral lower lung field edema versus infiltrates which eventually showed some clearing with a residual retrocardiac opacity present and followup suggested. HOSPITAL COURSE: The patient became afebrile and was feeling much improved even though he was still having difficulty communicating all of his symptoms and needs. He was pleasant and was ready to continue with outpatient therapy on the morning of discharge. His antibiotics were switched from meropenem to Rocephin when culture results showed sensitivities. He will eventually be able to go home on a second generation oral cephalosporin with close followup necessary. PLAN: Discharge to [facility] via van or with ambulance assistance because of the patient's inability to fully ambulate. Condition is only fair. We will resume his usual diet. Consider physical therapy rehab for strengthening and improvement of ADL activity potential. Followup with Dr. Russo suggested in a week. Continue with home medications. To this is added Ceftin 500 mg q.12h., #12 tablets, to be taken for the next 6 days. Suggest plenty of fluids. Breathe deeply to help prevent DVT as well as atelectasis. Dr. Russo will assist in followup of the pneumonia and urinary tract infection until resolution. Return if not improving. #[id number] [facility]
[2017-04-04 18:31] VITALS: O2SAT 94
== END 2017-04-04 12:15 | DRG 871 ==
LOC: ER 13:10 → MS 15:44
PROVIDERS: ADMIT Nurse Practitioner Acute Care; ATTEND Emergency Medicine
DX: A41.9 Sepsis, unspecified organism (principal); J18.9 Pneumonia, unspecified organism; J44.0 Chronic obstructive pulmonary disease with (acute) lower respiratory infection; I13.0 Hypertensive heart and chronic kidney disease with heart failure and stage 1 through stage 4 chronic kidney disease, or unspecified chronic kidney disease; N39.0 Urinary tract infection, site not specified; T83.511A Infection and inflammatory reaction due to indwelling urethral catheter, initial encounter; B96.4 Proteus (mirabilis) (morganii) as the cause of diseases classified elsewhere; R79.89 Other specified abnormal findings of blood chemistry; E11.22 Type 2 diabetes mellitus with diabetic chronic kidney disease; N18.9 Chronic kidney disease, unspecified; I50.9 Heart failure, unspecified; K21.9 Gastro-esophageal reflux disease without esophagitis; I25.10 Atherosclerotic heart disease of native coronary artery without angina pectoris; F70 Mild intellectual disabilities; F41.9 Anxiety disorder, unspecified; E78.5 Hyperlipidemia, unspecified; E11.51 Type 2 diabetes mellitus with diabetic peripheral angiopathy without gangrene; M19.90 Unspecified osteoarthritis, unspecified site; E66.9 Obesity, unspecified; Z95.1 Presence of aortocoronary bypass graft; Z95.5 Presence of coronary angioplasty implant and graft; Z95.0 Presence of cardiac pacemaker; Z79.4 Long term (current) use of insulin; Z79.899 Other long term (current) drug therapy; Y92.129 Unspecified place in nursing home as the place of occurrence of the external cause

== ENCOUNTER 2017-05-24 16:13 | Emergency (ER) | payer MEDICARE, OTHER ==
--- NOTE | 2017-05-24 16:54 | RAD ---
EXAM DESCRIPTION: Chest,1 View CLINICAL HISTORY: cough COMPARISON: 03 April 2017 TECHNIQUE: AP portable chest FINDINGS: The patient is poststernotomy. Atrial and ventricular leads are seen in place. Bilateral basilar infiltrate is observed more pronounced on the left. There is been an interval worsening since the previous exam. The heart is within range of normal. IMPRESSION: Worsening basilar infiltrate is noted. Electronically signed by: Chilango Sharpe MD 05/24/2017 4:53 PM [facility]
[2017-05-24 17:32] VITALS: TEMP 99.4; O2SAT 96
[2017-05-24] MEDS ORDERED: cefTRIAXone SODIUM 1 GM VIAL IM ONE (17:46)
[2017-05-24] MEDS ORDERED: AMOXICILLIN & POT CLAVULANATE 875 MG TAB PO ONE (17:47)
[2017-05-24] MEDS ORDERED: FUROSEMIDE 40 MG TAB PO ONE (17:47)
--- NOTE | 2017-05-24 17:50 | ED.PDOC ---
History of Present Illness - General Chief Complaint: Respiratory Problem Stated Complaint: possible pneumonia Time Seen by Provider: 05/24/17 16:27 Source: patient Exam Limitations: clinical condition - History of Present Illness Initial Comments: the patient is a 76-year-old male presenting from a long-term care facility secondary to a cough. The patient has apparently already been through the flu this year. There is some concern for him developing a pneumonia. He does have a history of congestive heart failure. He is actually feeling okay except for the cough at this point. No significant swelling of his extremities. He does have some ulcers on his heels. He is alert and at his baseline mental status which of course does include some significant dementia. He is not desaturating even off of oxygen. He does have bibasilar rales. He is not in any respiratory distress. Timing/Duration: unsure Severity: moderate Improving Factors: nothing Worsening Factors: nothing Associated Symptoms: cough, malaise Allergies/Adverse Reactions: Allergies NO KNOWN ALLERGY Allergy (Verified 03/31/17 13:36) Home Medications: Ambulatory Orders Ascorbic Acid [Vitamin C] 500 mg PO DAILY #0 08/26/14 Cilostazol [Pletal] 100 mg PO BID 08/26/14 Duloxetine HCl [Cymbalta] 120 mg PO DAILY 08/26/14 Furosemide 40 mg PO DAILY 08/26/14 Oxybutynin Chloride [Oxybutynin Chloride ER] 5 mg PO DAILY 08/26/14 Pantoprazole Sodium 40 mg PO DAILY 08/26/14 Temazepam 30 mg PO BEDTIME 08/26/14 Trazodone HCl 150 mg PO BEDTIME 08/26/14 Aripiprazole 20 mg PO DAILY 01/16/17 Cetirizine HCl [Zyrtec] 10 mg PO DAILY 01/16/17 Fluticasone Prop 0.05% Nasal [Flonase Nasal [place]] 2 spray INH DAILY 01/16/17 Lactobacillus [Acidophilus Lactobacilli] 1 cap PO TID 01/16/17 cloNAZepam [Klonopin] 0.25 mg PO BID 01/16/17 Insulin Glargine [Lantus Solostar] 10 unit SC BEDTIME #1 pack 02/11/17 Albuterol Sulfate Nebs [Proventil Nebs] 2.5 mg NEB BID PRN 03/31/17 Benzonatate Perles [Tessalon Perles] 1 - 2 each PO TID PRN 03/31/17 Bisacodyl Suppository 10Mg [Dulcolax Suppository 10mg] 10 mg [place] DAILY PRN Clonidine HCl 0.1 mg PO Q4H PRN 03/31/17 Diphenoxylate/Atropine [Lomotil Tab] 2.5 mg PO Q6HR PRN 03/31/17 Insulin Lispro (Human) [Humalog] 100 unit SC ACHS 03/31/17 Multiple Vitamins W/ Minerals [Multivitamin Men] 1 tab PO DAILY 03/31/17 Nystatin Powder 15 gm TOP DAILY 03/31/17 Acetaminophen W/ Codeine [Tylenol W/ CODEINE #3] 1 - 2 ea PO Q4H PRN 04/21/17 Clobetasol Propionate 0.05 % EX DAILY 04/21/17 Guaifenesin [Mucinex] 600 mg PO BID 04/21/17 Ipratropium [place] 0.02 % IN Q6H PRN 04/21/17 Phenylephrine W/ Dm-GG [Robitussin Childrens Coug 2.5-5-50 mg/5Ml] 2 tsp PO Q4H PRN 04/21/17 Amoxicillin [Amoxil] 1,000 mg PO Q12HR #40 cap 04/28/17 Bifidobacterium Infantis [Align] 4 mg PO DAILY cap 04/28/17 Metoprolol Succinate [Toprol Xl] 12.5 mg PO DAILY tab.er.24 04/28/17 Nystatin Powder 1 applic TOP QID appli 04/28/17 Amoxicillin & Pot Clavulanate [Augmentin Tab] 875 mg PO BID #14 tab 05/24/17 Review of Systems - Review of Systems Constitutional: States: no symptoms reported EENTM: States: nose congestion Respiratory: States: cough Cardiology: States: no symptoms reported Gastrointestinal/Abdominal: States: no symptoms reported Genitourinary: States: no symptoms reported Musculoskeletal: States: no symptoms reported Skin: States: see HPI Neurological: States: no symptoms reported Endocrine: States: no symptoms reported All other Systems: No Change from Baseline Past Medical History (General) - Patient Medical History Hx Seizures: No Hx Stroke: No Hx of COPD: Yes Hx Cardiac Disorders: Yes Hx Congestive Heart Failure: No Hx Pacemaker: Yes Hx Hypertension: Yes Hx Diabetes: Yes Hx Gastroesophageal Reflux: Yes Hx Renal Disease: Yes Hx MRSA: No - Vaccination History Hx Influenza Vaccination: Yes Hx Pneumococcal Vaccination: Yes - Social History Hx Tobacco Use: No Family Medical History - Family History Father Family History: Unknown Physical Exam - Physical Exam General Appearance: Alert, Comfortable, No apparent distress Eye Exam: bilateral normal Ears, Nose, Throat: hearing grossly normal, nasal congestion Neck: full range of motion, supple Respiratory: no respiratory distress, no accessory muscle use, rales - at bases Cardiovascular/Chest: normal peripheral pulses, regular rate, rhythm, no edema Peripheral Pulses: radial,right: 2+, radial,left: 2+, dorsalis pedis,right: 2+, dorsalis pedis,left: 2+ Gastrointestinal/Abdominal: non tender, soft Rectal Exam: deferred Extremity: non-tender, no calf tenderness, normal capillary refill, other - decreased range of motion secondary to chronic arthritic changes. Decreased sensation in bilateral lower extremities. Neurologic: insurance verifier II-XII nml as tested, alert, normal mood/affect - for his chronic state Skin Exam: normal color - he does have bilateral heel ulcers Comments: Vital Signs - 8 hr 05/24/17 05/24/17 05/24/17 16:30 17:10 17:25 Temperature 99.4 F Pulse Rate [ 63 63 left brachial] Respiratory 20 20 20 Rate Blood Pressure 157/74 157/74 [left brachial] O2 Sat by Pulse 97 96 Oximetry Progress - Progress Progress: 05/24/17 17:52 the patient is a 76-year-old male presenting to the emergency room secondary to what appears to be a predominantly left lower lobe small pneumonia. The patient is not hypoxic and not in any respiratory distress. There is no evidence of sepsis. The patient will be placed on Augmentin twice daily for 7 days. He did also receive a dose of Rocephin here today. There also does appear to be a mild CHF component mixed with this. He did receive 1 dose of Lasix here today. His fluid status does need to be followed by the monitoring physician at the facility. He may yet require a few more days of diuresis depending on his response. renal function here was good today. The patient is agreeable to this plan. Again he is not in any distress at this time. - Results/Orders Results/Orders: Laboratory Tests 05/24/17 05/24/17 16:50 16:50 WBC 12.0 H RBC 4.36 L Hgb 13.0 L Hct 38.9 L MCV 89.3 MCH 29.8 MCHC 33.4 RDW 15.1 H Plt Count 247 MPV 6.7 L Absolute Neuts (auto) 9.70 H Absolute Lymphs (auto) 1.10 Absolute Monos (auto) 1.00 H Absolute Eos (auto) 0.20 Absolute Basos (auto) 0.10 Neutrophils % 80.4 H Lymphocytes % 9.5 L Monocytes % 8.1 Eosinophils % 1.4 Basophils % 0.6 Sodium 137 Potassium 4.6 Chloride 103 Carbon Dioxide 27 Anion Gap 11.6 L BUN 17 Creatinine 1.17 BUN/Creatinine Ratio 14.5 Random Glucose 107 H Serum Osmolality 275.8 Calcium 8.7 Total Bilirubin 0.9 AST 16 ALT 16 Alkaline Phosphatase 111 Serum Total Protein 7.0 Albumin 3.4 Globulin 3.6 H Albumin/Globulin Ratio 0.9 L chest x-ray showsmild bibasilar infiltrates with a left worse than the right. Pacemaker is in place. Departure - Departure Clinical Impression: Pneumonia Qualifiers: Pneumonia type: due to unspecified organism Laterality: left Lung location: lower lobe of lung Qualified Code(s): J18.1 - Lobar pneumonia, unspecified organism CHF exacerbation Qualifiers: Congestive heart failure type: unspecified congestive heart failure type Qualified Code(s): I50.9 - Heart failure, unspecified Disposition: Discharge to SNF Condition: Fair Departure Forms: ED Discharge - Pt. Copy, Patient Portal Self Enrollment Instructions: Pneumonia-Adult Diet: diabetic diet Activity: increase activity as tolerated Referrals: Carroll Russo MD [Primary Care Provider] - 1-2 Days Prescriptions: Amoxicillin & Pot Clavulanate [Augmentin Tab] 875 mg PO BID #14 tab Home Medications: Ambulatory Orders Ascorbic Acid [Vitamin C] 500 mg PO DAILY #0 08/26/14 Cilostazol [Pletal] 100 mg PO BID 08/26/14 Duloxetine HCl [Cymbalta] 120 mg PO DAILY 08/26/14 Furosemide 40 mg PO DAILY 08/26/14 Oxybutynin Chloride [Oxybutynin Chloride ER] 5 mg PO DAILY 08/26/14 Pantoprazole Sodium 40 mg PO DAILY 08/26/14 Temazepam 30 mg PO BEDTIME 08/26/14 Trazodone HCl 150 mg PO BEDTIME 08/26/14 Aripiprazole 20 mg PO DAILY 01/16/17 Cetirizine HCl [Zyrtec] 10 mg PO DAILY 01/16/17 Fluticasone Prop 0.05% Nasal [Flonase Nasal [place]] 2 spray INH DAILY 01/16/17 Lactobacillus [Acidophilus Lactobacilli] 1 cap PO TID 01/16/17 cloNAZepam [Klonopin] 0.25 mg PO BID 01/16/17 Insulin Glargine [Lantus Solostar] 10 unit SC BEDTIME #1 pack 02/11/17 Albuterol Sulfate Nebs [Proventil Nebs] 2.5 mg NEB BID PRN 03/31/17 Benzonatate Perles [Tessalon Perles] 1 - 2 each PO TID PRN 03/31/17 Bisacodyl Suppository 10Mg [Dulcolax Suppository 10mg] 10 mg UT DAILY PRN Clonidine HCl 0.1 mg PO Q4H PRN 03/31/17 Diphenoxylate/Atropine [Lomotil Tab] 2.5 mg PO Q6HR PRN 03/31/17 Insulin Lispro (Human) [Humalog] 100 unit SC ACHS 03/31/17 Multiple Vitamins W/ Minerals [Multivitamin Men] 1 tab PO DAILY 03/31/17 Nystatin Powder 15 gm TOP DAILY 03/31/17 Acetaminophen W/ Codeine [Tylenol W/ CODEINE #3] 1 - 2 ea PO Q4H PRN 04/21/17 Clobetasol Propionate 0.05 % EX DAILY 04/21/17 Guaifenesin [Mucinex] 600 mg PO BID 04/21/17 Ipratropium [place] 0.02 % IN Q6H PRN 04/21/17 Phenylephrine W/ Dm-GG [Robitussin Childrens [place]oug 2.5-5-50 mg/5Ml] 2 tsp PO Q4H PRN 04/21/17 Amoxicillin [Amoxil] 1,000 mg PO Q12HR #40 cap 04/28/17 Bifidobacterium Infantis [Align] 4 mg PO DAILY cap 04/28/17 Metoprolol Succinate [Toprol Xl] 12.5 mg PO DAILY tab.er.24 04/28/17 Nystatin Powder 1 applic TOP QID appli 04/28/17 Amoxicillin & Pot Clavulanate [Augmentin Tab] 875 mg PO BID #14 tab 05/24/17 Additional Instructions: the patient is a 76-year-old male presenting to the emergency room secondary to what appears to be a predominantly left lower lobe small pneumonia. The patient is not hypoxic and not in any respiratory distress. There is no evidence of sepsis. The patient will be placed on Augmentin twice daily for 7 days. He did also receive a dose of Rocephin here today. There also does appear to be a mild CHF component mixed with this. He did receive 1 dose of Lasix here today. His fluid status does need to be followed by the monitoring physician at the facility. He may yet require a few more days of diuresis depending on his response. renal function here was good today. The patient is agreeable to this plan. Again he is not in any distress at this time.
[2017-05-24] MEDS ORDERED: LIDOCAINE 1% 10 ML VIAL INJ ONE (17:54)
[2017-05-24 18:46] VITALS: BP 146/70
== END 2017-05-24 18:40 ==
LOC: ER 16:13
DX: J18.1 Lobar pneumonia, unspecified organism (principal); I11.0 Hypertensive heart disease with heart failure; I50.9 Heart failure, unspecified; E11.9 Type 2 diabetes mellitus without complications; K21.9 Gastro-esophageal reflux disease without esophagitis; J44.9 Chronic obstructive pulmonary disease, unspecified; Z79.4 Long term (current) use of insulin; Z79.899 Other long term (current) drug therapy
CPT/HCPCS: 36415; 71045; 80053; 85025; 87804; J0696

== ENCOUNTER 2017-06-27 18:37 | Emergency (ER) | payer MEDICARE, MEDICAID ==
--- NOTE | 2017-06-27 19:04 | ED.PDOC ---
History of Present Illness - General Chief Complaint: GI Problem Stated Complaint: coffee ground emesis Time Seen by Provider: 06/27/17 18:57 Information Source: patient, EMS - History of Present Illness Initial Comments: POOR HISTORIAN. [place] [facility]. BROUGHT IN BY EMS FOR COFFEE GROUND EMESIS ELIZABETH Colon. IS ON 5L O2 PER [facility] CONTINOUS AT [facility], THUS 5L IN ER IS HIS BASELINE. Abdominal Pain Onset Location: generalized abdomen Pain Radiation: no radiation Quality: moderate Timing/Duration: 1-3 hours Improving Factors: nothing Worsening Factors: nothing Associated Symptoms: denies symptoms Review of Systems - Review of Systems Constitutional: States: no symptoms reported EENTM: States: no symptoms reported Respiratory: States: no symptoms reported Cardiology: States: no symptoms reported Gastrointestinal/Abdominal: States: abdominal pain - GENERALIZED BUT MOSTLY EPIGASTRIC., vomiting. Denies: constipation, diarrhea, nausea Genitourinary: States: no symptoms reported Musculoskeletal: States: no symptoms reported Skin: States: no symptoms reported Neurological: States: no symptoms reported Endocrine: States: no symptoms reported Hematologic/Lymphatic: States: no symptoms reported All other Systems: Reviewed and Negative Past Medical History (General) - Patient Medical History Hx Seizures: No Hx Stroke: No Hx of COPD: Yes Hx Cardiac Disorders: Yes Hx Congestive Heart Failure: No Hx Pacemaker: Yes Hx Hypertension: Yes Hx Diabetes: Yes Hx Gastroesophageal Reflux: Yes Hx Renal Disease: Yes Hx MRSA: No - Vaccination History Hx Influenza Vaccination: Yes Hx Pneumococcal Vaccination: Yes - Social History Hx Tobacco Use: No - Activities of Daily Living [facility]isted [facility] (if applicable):: [facility] Family Medical History - Family History Father Family History: Unknown Physical Exam - Physical Exam General Appearance: Alert, Obese, Well Nourished Eyes, Ears, Nose, Throat Exam: PERRL/EOMI, normal ENT inspection, pharynx normal - POSTERIOR OROPHARYNX CLEAR. NO BLOOD. Neck: non-tender, full range of motion, supple Respiratory: chest non-tender, lungs clear, normal breath sounds Cardiovascular/Chest: normal peripheral pulses, no JVD Peripheral Pulses: No deficit Gastrointestinal/Abdominal: normal bowel sounds, soft, no organomegaly, no pulsatile mass, tenderness - GENERALIZED TTP. NO G/R. NO MASSES. NO HSM. Male Genitalia: normal genitalia, normal prostate Rectal Exam: normal exam, normal rectal tone, heme negative stool - GROSSLY NEG. HEMOCCULT PENDING. Back Exam: normal inspection, no CVA tenderness, no vertebral tenderness Extremity: non-tender, normal inspection Neurologic: no motor/sensory deficits, alert Skin Exam: normal color, warm/dry Lymphatic: no adenopathy Progress - Progress Progress: 06/27/17 20:44 NEG LABS: LIPASE, COAGS, CXR (NEG ACUTELY), EKG NO ACUTE ST CHANGES. CBC - H/H WNL. WBC 28, ELEV NEUTS, 5 BANDS. CMP - BUN 43, CR 1.91 (BASELINE. SBP 147, THUS I AM WITHHOLDING IVF SO TO NOT WORSEN HIS GI BLEED). BILI 2.7. ELEV ALK PHOS CT ABD/PELVIS = CIRRHOSIS. GB NEG. HEMOCCULT POS HEMATEMESIS, HEMOCCULT POS - GAVE PEPCID. I'M TALKING WITH HOSPITALIST TO SEE IF ADMIT SINCE IS A STABLE GI BLEED (HGB NL, NO HYPOTENSION) WITH SUBSEQUENT EGD /C-SCOPE VS TRANSFER. NEUTROPHILIC LEUKOCYTOSIS - U/A AND BL CX PENDING. LIKELY UTI SINCE HAS INDWELLING AMAYA. 06/27/17 21:10 U/A POS FOR UTI. SENDING FOR UR CX. STARTING IV ROCEPHIN. 06/27/17 21:17 HOSPITALIST IS NOT COMFORTABLE ACCEPTING THUS I AM CALLING [facility] FOR TRANSFER FOR ADMISSION. 06/27/17 21:58 [facility] TRANSFER LINE CALLED BACK AND THEY ARE ACCEPTING DIRECT ADMISSION TO THE FLOOR. THANK YOU, DR. BRUNNER AND [facility], FOR ACCEPTING CARE OF THIS PATIENT. 06/27/17 22:03 Departure - Departure Clinical Impression: Hematemesis, Heme positive stool, Cirrhosis of liver, Neutrophilic leukocytosis , Bandemia, Renal failure, Bilirubinemia, Urinary tract infection Disposition: Transfer to Hospital Condition: Fair Departure Forms: ED Discharge - Pt. Copy, Patient Portal Self Enrollment Diet: other - NPO Referrals: Carroll Russo MD [Primary Care Provider] - 1-2 Weeks Home Medications: Ambulatory Orders Ascorbic Acid [Vitamin C] 500 mg PO DAILY #0 08/26/14 Cilostazol [Pletal] 100 mg PO BID 08/26/14 Duloxetine HCl [Cymbalta] 120 mg PO DAILY 08/26/14 Furosemide 40 mg PO DAILY 08/26/14 Oxybutynin Chloride [Oxybutynin Chloride ER] 5 mg PO DAILY 08/26/14 Pantoprazole Sodium 40 mg PO DAILY 08/26/14 Temazepam 30 mg PO BEDTIME 08/26/14 Trazodone HCl 150 mg PO BEDTIME 08/26/14 Aripiprazole 20 mg PO DAILY 01/16/17 Cetirizine HCl [Zyrtec] 10 mg PO DAILY 01/16/17 Fluticasone Prop 0.05% Nasal [Flonase Nasal [place]] 2 spray INH DAILY 01/16/17 Lactobacillus [Acidophilus Lactobacilli] 1 cap PO TID 01/16/17 cloNAZepam [Klonopin] 0.25 mg PO BID 01/16/17 Insulin Glargine [Lantus Solostar] 10 unit SC BEDTIME #1 pack 02/11/17 Albuterol Sulfate Nebs [Proventil Nebs] 2.5 mg NEB BID PRN 03/31/17 Benzonatate Perles [Tessalon Perles] 1 - 2 each PO TID PRN 03/31/17 Bisacodyl Suppository 10Mg [Dulcolax Suppository 10mg] 10 mg [place] DAILY PRN Clonidine HCl 0.1 mg PO Q4H PRN 03/31/17 Diphenoxylate/Atropine [Lomotil Tab] 2.5 mg PO Q6HR PRN 03/31/17 Insulin Lispro (Human) [Humalog] 100 unit SC ACHS 03/31/17 Multiple Vitamins W/ Minerals [Multivitamin Men] 1 tab PO DAILY 03/31/17 Nystatin Powder 15 gm TOP DAILY 03/31/17 Acetaminophen W/ Codeine [Tylenol W/ CODEINE #3] 1 - 2 ea PO Q4H PRN 04/21/17 Clobetasol Propionate 0.05 % EX DAILY 04/21/17 Guaifenesin [Mucinex] 600 mg PO BID 04/21/17 Ipratropium [place] 0.02 % IN Q6H PRN 04/21/17 Phenylephrine W/ Dm-GG [Robitussin Childrens [place]oug 2.5-5-50 mg/5Ml] 2 tsp PO Q4H PRN 04/21/17 Amoxicillin [Amoxil] 1,000 mg PO Q12HR #40 cap 04/28/17 Bifidobacterium Infantis [Align] 4 mg PO DAILY cap 04/28/17 Metoprolol Succinate [Toprol Xl] 12.5 mg PO DAILY tab.er.24 04/28/17 Nystatin Powder 1 applic TOP QID appli 04/28/17 Amoxicillin & Pot Clavulanate [Augmentin Tab] 875 mg PO BID #14 tab 05/24/17 Transfer to Outside Facility - Transfer Information Accepting Facility: [facility] Reason for Transfer: TRANSFER TO HIGHER LEVEL OF CARE.
[2017-06-27] MEDS ORDERED: FAMOTIDINE IV PREMIX 50 ML IVPB ONE (19:09)
[2017-06-27] MEDS: SODIUM CHLORIDE 0.9% (FLUSH) 10 ML SYG IV PRN (19:10)
[2017-06-27] MEDS: FAMOTIDINE IV PREMIX 20 MG in PREMIX BAG 1 BAG IVPB ONE (19:11)
--- NOTE | 2017-06-27 19:15 | RAD ---
Chest single view on 06/27/2017 CLINICAL INDICATION: Fell 20 feet, per protocol for mechanism of injury COMPARISON: 05/24/2017 FINDINGS: The patient is status post median sternotomy and CABG. There is elevation of the right hemidiaphragm. There is mild bibasilar atelectasis, scarring and/or chronic interstitial changes. 2-lead left subclavian pacemaker is noted in place. Mild cardiomegaly is noted. Hilar and mediastinal contours are within normal limits. The lungs are otherwise clear. IMPRESSION: No significant change in the appearance of the chest. Electronically signed by: Berhane Aguilar 06/27/2017 7:14 PM CHIEF TECHNOLOGIST
--- NOTE | 2017-06-27 20:10 | CT ---
EXAM DESCRIPTION: Abdoment/Pelvis w/o Contrast CLINICAL HISTORY: HEMATEMESIS COMPARISON: None Available. TECHNIQUE: Contiguous axial images of the abdomen and pelvis were obtained followed by reconstruction images. This exam was performed according to our departmental dose-optimization program, which includes automated exposure control, adjustment of the mA and/or kV according to patient size and/or use of iterative reconstruction technique. FINDINGS: There are shotty mediastinal lymph nodes. There is eventration of the right hemidiaphragm. Multiple calcified gallstones are present with no pericholecystic fluid or gallbladder wall thickening. Contour of the liver is irregular suggesting cirrhosis. There is atrophy of the right kidney. Patient motion limits detail. Barton catheter is in the urinary bladder which is collapsed. There chronic appearing degenerative changes of the bones. There is groundglass opacification of both lung bases with interstitial thickening. Adrenal glands are both mildly thickened. Aorta is of normal caliber and tapering. There is no free fluid in the abdomen or pelvis. There is no bowel obstruction. There is no stranding of the mesenteric fat to suggest an inflammatory response. The appendix is within normal limits. There is no pericecal inflammation. IMPRESSION: No clear etiology for acute pain Electronically signed by: Bobby Sparrow 06/27/2017 8:09 PM LAW ENFORCEMENT INSTRUCTOR
[2017-06-27] MEDS ORDERED: SODIUM CHLORIDE 0.9% 1000ML 1,000 ML IVS PRN (20:51)
[2017-06-27] MEDS ORDERED: SODIUM CHLORIDE 0.45% 1000ML 1,000 ML IVS PRN (20:57)
[2017-06-27] MEDS ORDERED: cefTRIAXone SODIUM 1 GM VIAL ONE (21:56)
[2017-06-27] MEDS: cefTRIAXone SODIUM 1 GM in SODIUM CHL 0.9% 50ML MIN-BAG+ 50 ML IVPB ONE (21:57)
[2017-06-27] MEDS ORDERED: SODIUM CHL 0.9% 50ML MIN-BAG+ 50 ML IVPB ONE (21:57)
[2017-06-27 23:11] VITALS: BP 169/59; TEMP 100.7; O2SAT 94
== END 2017-06-27 22:55 | disposition short-term general hospital (02) ==
LOC: ER 18:37
DX: K92.0 Hematemesis (principal); K74.60 Unspecified cirrhosis of liver; D72.828 Other elevated white blood cell count; D72.825 Bandemia; N39.0 Urinary tract infection, site not specified; E80.4 Gilbert syndrome; N19 Unspecified kidney failure; J44.9 Chronic obstructive pulmonary disease, unspecified; E11.9 Type 2 diabetes mellitus without complications; I10 Essential (primary) hypertension; Z95.0 Presence of cardiac pacemaker; Z99.81 Dependence on supplemental oxygen
CPT/HCPCS: 36415; 71045; 74176; 80053; 81001; 82150; 82270; 83690; 85025; 85610; 85730; 87040; 87086; 93005; J0696; J3490; J7050

== ENCOUNTER → 2017-09-10 | Outpatient (CLI) | payer MEDICARE, OTHER | LOC: GOCC 09:38 | PROVIDERS: ATTEND Internal Medicine | DX: R30.0 Dysuria (principal); R41.82 Altered mental status, unspecified ==

== ENCOUNTER 2017-09-13 08:39 | Inpatient (IN) | payer MEDICARE, MEDICAID ==
[2017-09-13] MEDS ORDERED: SODIUM CHLORIDE 0.9% (FLUSH) 10 ML SYG IV PRN ×2 (09:05→14:12)
[2017-09-13] MEDS ORDERED: SODIUM CHLORIDE 0.9% 1000ML 1,000 ML IVS ONE (09:05)
--- NOTE | 2017-09-13 09:14 | ED.PDOC ---
History of Present Illness - General Chief Complaint: Neuro Symptoms/Deficits Stated Complaint: decreased LOC,fever Time Seen by Provider: 09/13/17 09:05 Source: RN/MD, snf records Exam Limitations: clinical condition - History of Present Illness Initial Comments: PT WAS SENT TO THE ED FROM [facility] FOR DECREASED LOC. PT HAD UA DONE ON 09/10 WHICH DEMONSTRATED A UTI HOWEVER TREATMENT WAS NOT STARTED. PT ARRIVES TO ED FEBRILE. HPI AND ROS LIMITED DUE TO PATIENTS MENTAL STATUS. Timing/Duration: unsure Severity: moderate Allergies/Adverse Reactions: Allergies NO KNOWN ALLERGY Allergy (Verified 03/31/17 13:36) Home Medications: Ambulatory Orders Ascorbic Acid [Vitamin C] 500 mg PO DAILY #0 08/26/14 Cilostazol [Pletal] 100 mg PO BID 08/26/14 Duloxetine HCl [Cymbalta] 120 mg PO DAILY 08/26/14 Furosemide 40 mg PO DAILY 08/26/14 Oxybutynin Chloride [Oxybutynin Chloride ER] 5 mg PO DAILY 08/26/14 Pantoprazole Sodium 40 mg PO DAILY 08/26/14 Temazepam 15 mg PO BEDTIME 08/26/14 Trazodone HCl 150 mg PO BEDTIME 08/26/14 Aripiprazole 20 mg PO DAILY 01/16/17 Fluticasone Prop 0.05% Nasal [Flonase Nasal Talmage] 2 spray INH DAILY 01/16/17 cloNAZepam [Klonopin] 0.25 mg PO BID 01/16/17 Insulin Glargine [Lantus Solostar] 10 unit SC BEDTIME #1 pack 02/11/17 Albuterol Sulfate Nebs [Proventil Nebs] 2.5 mg NEB BID PRN 03/31/17 Bisacodyl Suppository 10Mg [Dulcolax Suppository 10mg] 10 mg HI DAILY PRN Clonidine HCl 0.1 mg PO Q4H PRN 03/31/17 Diphenoxylate/Atropine [Lomotil Tab] 2.5 mg PO Q6HR PRN 03/31/17 Insulin Lispro (Human) [Humalog] 100 unit SC ACHS 03/31/17 Multiple Vitamins W/ Minerals [Multivitamin Men] 1 tab PO DAILY 03/31/17 Nystatin Powder 15 gm TOP BID 03/31/17 Guaifenesin [Mucinex] 600 mg PO BID 04/21/17 Ipratropium Dairy 0.02 % IN Q6H PRN 04/21/17 Bifidobacterium Infantis [Align] 4 mg PO DAILY cap 04/28/17 Metoprolol Succinate [Toprol Xl] 12.5 mg PO DAILY tab.er.24 04/28/17 Acetaminophen W/ Codeine [Tylenol W/ CODEINE #3] 1 - 2 ea PO Q4H PRN 09/13/17 Balsam Benjy-Dorothy Oil [Venelex] 1 applic TOP DAILY 09/13/17 Benzonatate Perles [Tessalon Perles] 1 - 2 mg PO TID PRN 09/13/17 Cetirizine HCl [ZyrTEC] 10 mg PO DAILY 09/13/17 Lactobacillus [Acidophilus Lactobacilli] 1 cap PO TID 09/13/17 Phenylephrine W/ Dm-GG [Robitussin Childrens Coug] 2 tsp PO Q4H PRN 09/13/17 Zinc Sulfate 220 mg PO DAILY 09/13/17 Review of Systems - Review of Systems Constitutional: States: see HPI, fever EENTM: States: see HPI Respiratory: States: see HPI Cardiology: States: see HPI Gastrointestinal/Abdominal: States: see HPI Genitourinary: States: see HPI Musculoskeletal: States: see HPI Skin: States: see HPI Neurological: States: see HPI Endocrine: States: see HPI Hematologic/Lymphatic: States: see HPI Unable to Obtain Due To: clinical condition Past Medical History (General) - Patient Medical History Hx Seizures: No Hx Stroke: No Hx of COPD: Yes Hx Cardiac Disorders: Yes Hx Congestive Heart Failure: No Hx Pacemaker: Yes Hx Hypertension: Yes Hx Diabetes: Yes Hx Gastroesophageal Reflux: Yes Hx Renal Disease: Yes Hx MRSA: No Surgical History: coronary bypass surgery, pacemaker, tonsillectomy - Vaccination History Hx Influenza Vaccination: Yes Hx Pneumococcal Vaccination: Yes - Social History Hx Tobacco Use: No - Activities of Daily Living Senior Living/Assisted Living (if applicable):: [facility] Family Medical History - Family History Father Family History: Unknown Physical Exam - Physical Exam General Appearance: Frail, Well Groomed, Well Nourished, Other - SOMNOLENT, ABLE TO BE AROUSED. NOT FOLLOWING COMMANDS OR ANSWERING QUESTIONS Eye Exam: bilateral normal Neck: supple Respiratory: rhonchi, other - TACHYPNEIC Cardiovascular/Chest: regular rate, rhythm, no murmur Gastrointestinal/Abdominal: non tender, soft Extremity: normal inspection, no pedal edema Skin Exam: normal color, warm/dry Lymphatic: no adenopathy Comments: AMAYA CATHETER IN PLACE Progress - Progress Progress: 09/13/17 11:17 PT RESTING COMFORTABLY, VITALS REMAIN UNCHANGED. 09/13/17 11:50 CASE DISCUSSED WITH MARY KEITH NP, WHO AGREES TO ADMIT. - Results/Orders Results/Orders: 09/13/17 09:05 Telemetry .ONCE Sodium Chloride 0.9% (Flush) [Saline Flush Syringe] 10 ml IV PRN PRN EKG Stat Pulse Ox Stat 09/13/17 09:49 BLOOD CULTURE Stat 09/13/17 11:10 URINE CULTURE W/COLONY COUNT Stat 09/13/17 11:17 Catheter:Amaya QSHIFT 09/14/17 01:15 LACTIC ACID Q2H 09/14/17 03:15 LACTIC ACID Q2H 09/14/17 05:15 LACTIC ACID Q2H 09/14/17 07:15 LACTIC ACID Q2H Laboratory Results - last 24 hr 09/13/17 09/13/17 09/13/17 06:49 09:30 09:49 WBC 17.4 H RBC 4.55 L Hgb 14.3 Hct 42.1 MCV 92.7 MCH 31.4 H MCHC 33.9 RDW 14.8 H Plt Count 229 MPV 8.3 Absolute Neuts (auto) 14.90 H Absolute Lymphs (auto) 1.10 Absolute Monos (auto) 1.30 H Absolute Eos (auto) 0.00 Absolute Basos (auto) 0.10 Neutrophils % 85.9 H Lymphocytes % 6.1 L Monocytes % 7.7 Eosinophils % 0.0 L Basophils % 0.3 PT INR PTT (SP) pCO2 pO2 HCO3 ABG pH ABG O2 Saturation ABG Base Excess ABG Deoxyhemoglobin Oxyhemoglobin % Carboxyhemoglobin % Methemoglobin % Sat Calc Total Hemoglobin Sodium 144 Potassium 3.7 Chloride 109 Carbon Dioxide 19 L Anion Gap 19.7 H BUN 99 H Creatinine 3.95 H BUN/Creatinine Ratio 25.1 H Random Glucose 225 H Serum Osmolality 324.7 H Lactic Acid 2.0 Calcium 8.5 Total Bilirubin 1.9 H AST 24 ALT 17 Alkaline Phosphatase 86 Creatine Kinase 107 CK-MB (CK-2) 7.5 H* CK-MB (CK-2) % Not Reportable Troponin I 0.42 H* Serum Total Protein 7.5 Albumin 3.5 Globulin 4.0 H Albumin/Globulin Ratio 0.9 L Urine Color Urine Appearance Urine pH Ur Specific Empire Urine Protein Urine Glucose (UA) Urine Ketones Urine Blood Urine Nitrite Urine Bilirubin Urine Urobilinogen Ur Leukocyte Esterase Urine RBC Urine WBC Ur Epithelial Cells Triple Phos Crystals Amorphous Sediment Urine Bacteria 09/13/17 09/13/17 09/13/17 09:49 09:55 11:10 WBC RBC Hgb Hct MCV MCH MCHC RDW Plt Count MPV Absolute Neuts (auto) Absolute Lymphs (auto) Absolute Monos (auto) Absolute Eos (auto) Absolute Basos (auto) Neutrophils % Lymphocytes % Monocytes % Eosinophils % Basophils % PT 15.0 H INR 1.300 PTT (SP) 30.2 pCO2 8 L* pO2 56 L HCO3 5.2 ABG pH 7.420 ABG O2 Saturation 91.4 L ABG Base Excess -19.5 ABG Deoxyhemoglobin 8.4 H Oxyhemoglobin % 89.2 L Carboxyhemoglobin % -0.3 L Methemoglobin % Sat 2.6 H Calc Total Hemoglobin 5.8 L Sodium Potassium Chloride Carbon Dioxide Anion Gap BUN Creatinine BUN/Creatinine Ratio Random Glucose Serum Osmolality Lactic Acid Calcium Total Bilirubin AST ALT Alkaline Phosphatase Creatine Kinase CK-MB (CK-2) CK-MB (CK-2) % Troponin I Serum Total Protein Albumin Globulin Albumin/Globulin Ratio Urine Color Yellow Urine Appearance Cloudy Urine pH >= 9.0 H* Ur Specific Empire 1.020 Urine Protein 100 H Urine Glucose (UA) Negative Urine Ketones Negative Urine Blood Large H Urine Nitrite Negative Urine Bilirubin Small H Urine Urobilinogen 1.0 Ur Leukocyte Esterase Large H Urine RBC 5-10 H Urine WBC >50 H Ur Epithelial Cells 1-3 Triple Phos Crystals 1+ Amorphous Sediment 3+ Urine Bacteria 4+ H - EKG/XRAY/CT EKG: Sinus - @93BPM, , LVH, RBBB - LAFB, QRS 176MS, nonspecific ST T wave Chg, Unchanged from - 06/27/17 XRAY: chest - HAZINESS OF BASES, CANNOT RULE OUT PNEUMONIA, PER RAD Departure - Departure Clinical Impression: Acute kidney failure, Volume depletion, unspecified, Urinary tract infection, Acute confusional state, Sepsis, Elevated troponin I level Time of Disposition: 12:49 Disposition: Admit Patient Condition: Fair Departure Forms: ED Discharge - Pt. Copy, Patient Portal Self Enrollment Referrals: Carroll Russo MD [Primary Care Provider] - 1-2 Weeks Home Medications: Ambulatory Orders Ascorbic Acid [Vitamin C] 500 mg PO DAILY #0 08/26/14 Cilostazol [Pletal] 100 mg PO BID 08/26/14 Duloxetine HCl [Cymbalta] 120 mg PO DAILY 08/26/14 Furosemide 40 mg PO DAILY 08/26/14 Oxybutynin Chloride [Oxybutynin Chloride ER] 5 mg PO DAILY 08/26/14 Pantoprazole Sodium 40 mg PO DAILY 08/26/14 Temazepam 15 mg PO BEDTIME 08/26/14 Trazodone HCl 150 mg PO BEDTIME 08/26/14 Aripiprazole 20 mg PO DAILY 01/16/17 Fluticasone Prop 0.05% Nasal [Flonase Nasal Talmage] 2 spray INH DAILY 01/16/17 cloNAZepam [Klonopin] 0.25 mg PO BID 01/16/17 Insulin Glargine [Lantus Solostar] 10 unit SC BEDTIME #1 pack 02/11/17 Albuterol Sulfate Nebs [Proventil Nebs] 2.5 mg NEB BID PRN 03/31/17 Bisacodyl Suppository 10Mg [Dulcolax Suppository 10mg] 10 mg HI DAILY PRN Clonidine HCl 0.1 mg PO Q4H PRN 03/31/17 Diphenoxylate/Atropine [Lomotil Tab] 2.5 mg PO Q6HR PRN 03/31/17 Insulin Lispro (Human) [Humalog] 100 unit SC ACHS 03/31/17 Multiple Vitamins W/ Minerals [Multivitamin Men] 1 tab PO DAILY 03/31/17 Nystatin Powder 15 gm TOP BID 03/31/17 Guaifenesin [Mucinex] 600 mg PO BID 04/21/17 Ipratropium Dairy 0.02 % IN Q6H PRN 04/21/17 Bifidobacterium Infantis [Align] 4 mg PO DAILY cap 04/28/17 Metoprolol Succinate [Toprol Xl] 12.5 mg PO DAILY tab.er.24 04/28/17 Acetaminophen W/ Codeine [Tylenol W/ CODEINE #3] 1 - 2 ea PO Q4H PRN 09/13/17 Balsam [place]-Dorothy Oil [Venelex] 1 applic TOP DAILY 09/13/17 Benzonatate Perles [Tessalon Perles] 1 - 2 mg PO TID PRN 09/13/17 Cetirizine HCl [ZyrTEC] 10 mg PO DAILY 09/13/17 Lactobacillus [Acidophilus Lactobacilli] 1 cap PO TID 09/13/17 Phenylephrine W/ Dm-GG [Robitussin Childrens Coug] 2 tsp PO Q4H PRN 09/13/17 Zinc Sulfate 220 mg PO DAILY 09/13/17 Decision To Admit - Decistion To Admit Decision to Admit Reason: Admit from ER Decision to Admit Date: 09/13/17 - CASE DISCUSSED WITH MARY KEITH AND ARRANGEMENTS MADE TO ADMIT Decision to Admit Time: 12:50
[2017-09-13] MEDS ORDERED: CEFEPIME 2 GM in SODIUM CHL 0.9% 50ML MIN-BAG+ 50 ML IVPB ONE (10:22)
[2017-09-13] MEDS ORDERED: CEFEPIME 2 GM VIAL IVPB ONE ×2 (10:26→19:57)
[2017-09-13] MEDS ORDERED: SODIUM CHL 0.9% 50ML MIN-BAG+ 50 ML IVPB ONE ×2 (10:26→19:57)
--- NOTE | 2017-09-13 10:26 | RAD ---
EXAM DESCRIPTION: Chest,1 View CLINICAL HISTORY: sepsis COMPARISON: June 27, 2017 FINDINGS: Again seen are postoperative changes in the mediastinum. A dual-lead cardiac pacemaker remains in place. The heart is enlarged but stable from the prior study. Hazy appearance of the lung bases is at least partially related to artifact from superimposed soft tissues. Airspace consolidation is difficult to exclude. Question tiny bilateral pleural effusions. The central vascular markings are only slightly indistinct. There is no pneumothorax or acute fracture. IMPRESSION: Slightly limited exam due to under penetrated technique with abnormal appearance of both lung bases at least partially related to artifact from superimposed soft tissues. Edema, pneumonia and/or tiny bilateral pleural effusions are not excluded. PA and lateral chest radiograph or chest CT may be helpful for further evaluation. Electronically signed by: Bony Sprague MD 09/13/2017 10:25 AM CDT
--- NOTE | 2017-09-13 12:58 | HP ---
SUPERVISING PHYSICIAN: Carroll Russo M.D. CHIEF COMPLAINT: Altered mental status. HISTORY OF PRESENT ILLNESS: This is a 76 year-old male patient who came from [facility] with a complaint of altered mental status. Additionally he had a urinalysis done a few days ago, but they were waiting on the culture results to start antibiotics. The actual treatment had not begun yet. Given the patient's decrease in level of consciousness, he was sent over here to the Emergency Room. History of Present Illness is limited due to the fact the patient is really not conversive, but in the Emergency Room he was noted to have leukocytosis with a white count of 17.4, hemoglobin 14.3, platelet count 229. Arterial blood gas showed a compensated metabolic acidosis. Chemistry showed an elevation in BUN and creatinine of 99 and 3.95 respectively. Glucose is elevated at 225. Bilirubin is 1.9. Troponin mildly elevated at 0.42. Lactic acid was 2.0. Urinalysis was significant for a urinary tract infection with large leukocytes. Urine WBCs greater than 50, urine bacteria 4+. The patient is a do not resuscitate. Vital signs have been acceptable initially, a little bit hypotensive but have improved with fluid administration. He was referred for admission by the E. R. physician for severe sepsis. PAST MEDICAL HISTORY: 1. Frequent urinary tract infections, the last one being in June and it grew out Pseudomonas which was sensitive to Cefepime. 2. Coronary artery disease. 3. Chronic obstructive pulmonary disease. 4. Chronic kidney disease. 5. Hypertension. 6. Gastroesophageal reflux disease. 7. Anxiety. 8. Hyperlipidemia. 9. Diabetes mellitus type 2. 10. Mental retardation. 11. Peripheral vascular disease. 12. Osteoarthritis. PAST SURGICAL HISTORY: 1. PTCA with stent in the past. 2. Tonsillectomy. 3. Coronary artery bypass grafting. 4. Pacemaker placement. 5. Esophagogastroduodenoscopy. CURRENT MEDICATIONS: Please see the medication reconciliation record. They have not been confirmed currently. ALLERGIES: NO KNOWN DRUG ALLERGIES. FAMILY HISTORY: Not available. SOCIAL HISTORY: The patient is a jail resident. He does not drink, does not smoke. REVIEW OF SYSTEMS: Cannot be obtained due to the fact the patient has level of consciousness. PHYSICAL EXAMINATION: VITAL SIGNS: Blood pressure 109/74, heart rate 106, respiratory rate 24, temperature 98.0, oxygen saturation 91%. GENERAL: Mr. Pritchett is a 76 year-old male patient who is acutely and chronically ill in appearance. HEENT: Head is normocephalic and atraumatic. Eyes: Pupils are equal and reactive. Nose: No drainage. Throat: Dry mucosa. NECK: Supple. Midline trachea. No visible jugular venous distention. CHEST: Symmetrical with equal rise and fall of the chest with inspiration and expiration. Lung sounds with some bilateral wheezing in the upper ferreira, diminished in the lower ferreira. CARDIOVASCULAR: The patient has tachycardia. Normal S1 and S2. ABDOMEN: Soft, obese. Positive bowel sounds. He does have a preexisting decubitus on his coccyx. EXTREMITIES: Lower extremities with bilateral edema mainly around the ankles. He does have a right lateral heel wound on the right foot which has some drainage. We sent that for culture. NEUROLOGIC: The patient is obtunded. He opens his eyes briefly to sternal rub. LABORATORY: Labs as discussed in the History of Present Illness. There does not appear to be any overt pneumonia at this time. ASSESSMENT: 1. Severe sepsis with marginal blood pressure. 2. Urinary tract infection, with Pseudomonas infection approximately 2 months ago. 3. Acute on chronic kidney disease. 4. Severe metabolic acidosis on ABG, but compensated. 5. Diabetes mellitus. 6. Altered mental status. PLAN: The patient will be treated for severe sepsis at this time. I have ordered cultures and initiated antibiotics as well. I am going to add vancomycin as well given the fact the patient does have a significant heel wound and cannot rule out osteomyelitis. I will get x-rays of his heel to see if it is consistent with that. Additionally, I have ordered DVT and GI prophylaxis. I will monitor the cultures and deescalate as able. The last time he had a UA here at this hospital, it was Pseudomonas and was sensitive to Cefepime, so we will continue that antibiotic at this point. I have ordered IV fluids with sodium bicarb given the fact he has a significant metabolic acidosis and renal dysfunction. If there is no significant improvement in the next 24 to 48 hours, will consider a nephrology consultation. The patient is a DNR already, so we will follow those directives but continue active aggressive therapy. #[id number] [facility]
[2017-09-13] MEDS ORDERED: ALBUTEROL SULFATE 2.5 MG/3 ML VIAL NEB PRN (14:16)
[2017-09-13] MEDS ORDERED: DEXTROSE 50% 25 GM/50 ML SYG IV PRN (14:18)
[2017-09-13] MEDS ORDERED: GLUCAGON INJ 1 MG VIAL SUBCU PRN (14:18)
[2017-09-13] MEDS ORDERED: DEXTROSE 5% 1000ML 1,000 ML IVS ONE (14:38)
[2017-09-13] MEDS ORDERED: SODIUM BICARBONATE VIAL 50 MEQ/50 ML VIAL ONE ×2 (14:39→23:57)
[2017-09-13] MEDS: SODIUM BICARBONATE VIAL 100 MEQ in DEXTROSE 5% 1000ML 1,000 ML IVS PRN (14:48)
[2017-09-13] MEDS: ENOXAPARIN SODIUM 30 MG/0.3 ML SYG SUBCU SCH (14:50)
[2017-09-13] MEDS: IV SET AND CAP CHANGE INJ INJ SCH (14:51)
[2017-09-13] MEDS ORDERED: SODIUM BICARBONATE SYRINGE 50 MEQ/50 ML SYG IV ONE (15:37)
[2017-09-13] MEDS ORDERED: INSULIN LISPRO 100 UNITS/ML PEN SUBCU SCH (16:30)
[2017-09-13] MEDS: IPRATROPIUM/ALBUTEROL 3 ML VIAL NEB SCH (18:14)
[2017-09-13] MEDS: CEFEPIME 2 GM in SODIUM CHL 0.9% 50ML MIN-BAG+ 50 ML IVPB SCH (22:01)
[2017-09-14] MEDS: IPRATROPIUM/ALBUTEROL 3 ML VIAL NEB SCH ×4 (00:10→17:56)
[2017-09-14] MEDS: INSULIN LISPRO 100 UNITS/ML PEN SUBCU SCH ×4 (00:24→17:55)
[2017-09-14] MEDS ORDERED: DEXTROSE 5% 1000ML 1,000 ML IVS ONE ×2 (00:44→15:28)
[2017-09-14] MEDS: SODIUM BICARBONATE VIAL 100 MEQ in DEXTROSE 5% 1000ML 1,000 ML IVS PRN ×2 (00:48→15:35)
[2017-09-14] MEDS ORDERED: KCL 20MEQ/WATER FOR INJ 100ML 20 MEQ in PREMIX BAG 1 BAG IVPB ONE (08:56)
[2017-09-14] MEDS ORDERED: SODIUM CHL 0.9% 50ML MIN-BAG+ 0 ML IVPB ONE (09:19)
[2017-09-14] MEDS ORDERED: KCL 20MEQ/WATER FOR INJ 100ML 100 ML IVPB ONE (09:19)
[2017-09-14] MEDS ORDERED: CEFEPIME 2 GM VIAL IVPB ONE ×2 (09:19→21:18)
[2017-09-14] MEDS: POTASSIUM BICARBONATE 25 MEQ TAB PO SCH (09:35)
[2017-09-14] MEDS: CEFEPIME 2 GM in SODIUM CHL 0.9% 50ML MIN-BAG+ 50 ML IVPB SCH ×2 (10:30→21:25)
--- NOTE | 2017-09-14 11:54 | CONS ---
DATE OF CONSULTATION: 09/14/17 HISTORY OF PRESENT ILLNESS: The patient is a 76-year-old male who was admitted from [facility] by the hospitalist service under Dr. Russo' supervision. Complaint was of altered mental status. He was pending a urinalysis to begin culture results and antibiotics. He was admitted with a presumed urosepsis. They noted, however, on the heel of his right foot that he had an area of ecchymosis and an eschar with some drainage which has been cultured. There were several laboratory exams that were abnormal. It is noticed that he has a Do Not Resuscitate order. PAST MEDICAL HISTORY: 1. Urinary tract infections, the last of which was Pseudomonas. 2. Coronary artery disease. 3. Chronic obstructive pulmonary disease. 4. Renal insufficiency 5. Hypertension. 6. Gastroesophageal reflux disease. 7. Anxiety. 8. Hyperlipidemia. 9. Diabetes. 10. Peripheral vascular occlusive disease. 11. Osteoarthritis. 12. Some dementia. PAST SURGICAL HISTORY: 1. Coronary stents. 2. Tonsillectomy. 3. Coronary artery bypass grafting. 4. Pacemaker. 5. EGDs. CURRENT MEDICATIONS: Please see his admission medication list. ALLERGIES: NO KNOWN DRUG ALLERGIES. REVIEW OF SYSTEMS: Unobtainable as although the patient responds to questions just by looking, he shows pain by wincing. PHYSICAL EXAMINATION: VITAL SIGNS: The patient is currently afebrile, normotensive. HEENT: Sclerae nonicteric. Mucous membranes moist. NECK: Without adenopathy. CHEST: Equal breath sounds bilaterally. HEART: Tachycardia. ABDOMEN: Soft and benign. EXTREMITIES: Right lower extremity reveals minimal edema. There is approximately 2 by 3 cm area of eschar that is soft. There is some bloody drainage. It is mildly warm. There is no surrounding erythema. LABORATORY: Potassium 3.0 today, creatinine 3, glucose 246, calcium 8.2. White count is down to 10.1 this morning, hemoglobin 12.3, platelet count 187, 000, 84% neutrophils. Coags reveal PT 15, INR 1.3. Urine showed specific gravity 1.020, greater than 50 white cells, 5 to 10 red cells, large leukocyte esterase, 4+ bacteria. Cultures, both urine and wound culture are pending. The blood cultures from yesterday showed no growth at 24 hours. ASSESSMENT: 1. Pressure ulcer of the skin and subcutaneous tissue. It does not appear to involve bone. Cultures are pending. 2. Diabetes. 3. Peripheral vascular occlusive disease. 4. Heart disease. 5. Lung disease. 6. Probably at least urinary tract infection if not urosepsis. These cultures are pending. PLAN: Continue current antibiotics pending culture results. Also, the wound will be kept with a dry dressing and the foot elevated. #[id number] [facility]
--- NOTE | 2017-09-14 12:00 | PN ---
DATE: 09/14/17 SUBJECTIVE: The patient is pretty much nonverbal still, but he is much more awake and making noises. I feel like this is probably his baseline mental status at this time. There were no events overnight to report. OBJECTIVE: VITAL SIGNS: Blood pressure 105/67. Heart rate 79. Respiratory rate 24. Temperature 97.9. Oxygen saturation 94%. GENERAL: Mr. Pritchett is a 76-year-old male patient chronically ill in appearance , but no severe distress currently. NEUROLOGIC: Alert, no longer obtunded. He is not really following commands, though. LUNGS: Bilateral wheezing, but improved from yesterday and he has some basilar diminishing as well. CARDIOVASCULAR: Regular rate and rhythm. Normal S1, S2. ABDOMEN: Soft, obese. Positive bowel sounds. GENITOURINARY: Deferred. EXTREMITIES: Lower extremities with dressing to the right ankle. LABORATORY: Labs were reviewed and white count 10.1 which is an improvement over the 17.4 yesterday. Hemoglobin 12.3, hematocrit 36.5, platelet count 187. Chemistry shows sodium 146, potassium 3.0, chloride 108, CO2 26, glucose 247, BUN 93, creatinine 3.04, calcium 8.2. ASSESSMENT: 1. Severe sepsis. 2. Urinary tract infection. 3. Acute on chronic kidney disease. 4. Metabolic acidosis. 5. Diabetes mellitus. 6. Altered mental status. 7. Hypokalemia. 8. Pre-existing right ankle decubitus. PLAN: Blood pressure is improved. White count is improved as well as mental status. We are going to continue the antibiotics until we have a culture result. Continue DVT and GI ulcer prophylaxis as well. I will replace his potassium today as well with dose of IV potassium as well as p.o. I am going to start him on a mechanically soft diet as well. Dr. Zuniga will be evaluating the right ankle decubitus and making recommendations. #[id number] [facility]
[2017-09-14] MEDS: ENOXAPARIN SODIUM 30 MG/0.3 ML SYG SUBCU SCH (13:58)
[2017-09-14] MEDS ORDERED: SODIUM BICARBONATE VIAL 50 MEQ/50 ML VIAL ONE (15:29)
[2017-09-14] MEDS ORDERED: SODIUM CHL 0.9% 50ML MIN-BAG+ 50 ML IVPB ONE (21:17)
[2017-09-15] MEDS: INSULIN LISPRO 100 UNITS/ML PEN SUBCU SCH ×4 (00:16→17:46)
[2017-09-15] MEDS: IPRATROPIUM/ALBUTEROL 3 ML VIAL NEB SCH ×5 (01:10→23:57)
[2017-09-15] MEDS ORDERED: DEXTROSE 5% 1000ML 1,000 ML IVS ONE (02:42)
[2017-09-15] MEDS ORDERED: SODIUM BICARBONATE VIAL 50 MEQ/50 ML VIAL ONE ×2 (02:43→02:44)
[2017-09-15] MEDS: SODIUM BICARBONATE VIAL 100 MEQ in DEXTROSE 5% 1000ML 1,000 ML IVS PRN (02:54)
[2017-09-15] MEDS: SODIUM CHLORIDE 0.9% (FLUSH) 10 ML SYG IV SCH ×2 (10:31→20:38)
[2017-09-15] MEDS: POTASSIUM BICARBONATE 25 MEQ TAB PO SCH (10:32)
[2017-09-15] MEDS: ENOXAPARIN SODIUM 30 MG/0.3 ML SYG SUBCU SCH (14:49)
[2017-09-15] MEDS ORDERED: SODIUM CHL 0.9% 50ML MIN-BAG+ 50 ML IVPB ONE (19:56)
[2017-09-15] MEDS ORDERED: CEFEPIME 2 GM VIAL IVPB ONE (19:57)
[2017-09-15] MEDS: CEFEPIME 2 GM in SODIUM CHL 0.9% 50ML MIN-BAG+ 50 ML IVPB SCH (20:38)
[2017-09-16] MEDS: INSULIN LISPRO 100 UNITS/ML PEN SUBCU SCH ×5 (00:12→20:56)
[2017-09-16] MEDS: IPRATROPIUM/ALBUTEROL 3 ML VIAL NEB SCH ×3 (06:08→17:33)
[2017-09-16] MEDS ORDERED: POTASSIUM CHLORIDE 20 MEQ TAB PO ONE ×2 (08:48→17:00)
[2017-09-16] MEDS: SODIUM CHLORIDE 0.9% (FLUSH) 10 ML SYG IV SCH ×2 (09:21→21:18)
[2017-09-16] MEDS ORDERED: levoFLOXacin 500MG IV 500 MG in PREMIX BAG 1 BAG IVPB ONE (10:00)
--- NOTE | 2017-09-16 10:05 | PN ---
DATE: 09/15/17 SUPERVISING PHYSICIAN: Carroll Russo MD SUBJECTIVE: The patient is much more verbal today. I have had him in the past and he seems to be near is baseline mental status. He is verbal but has a severe dysphagia. He has remained afebrile. He has had no nausea, vomiting, diarrhea. OBJECTIVE: VITAL SIGNS: T-max 98.5. Pulse 82. Blood pressure 132/74. Respirations 20. Saturation 99% on room air. I&O: Positive balance of 2180 with 3980 in and 1800 out. Weight 97.7 kg. GENERAL: The patient is resting, appears to be comfortable. He is continuing to verbalize and is very interactive today. CHEST: Lungs were diminished throughout but no wheezing or rhonchi noted. HEART: Regular rate and rhythm. ABDOMEN: Soft, positive bowel sounds. EXTREMITIES: Right ankle heel shows a healing decubiti with no obvious signs of drainage or cellulitis. Both lower extremities have a trace of edema. NEUROLOGIC: Alert and is able to follow commands but is unable to fully verbalize.. LABORATORY: Today, his white count is 7,600, hemoglobin 12.3, hematocrit 36.4, platelet count 153,000. Differential today has shown a resolving of his left shift. Chemistries show a low potassium at 2.7, elevated carbon dioxide at 32, BUN 75 which is improved from admission of 99 and his creatinine is now down to 2.28 which is near his baseline creatinine of 2.2. Glucose 184 to 241, calcium 7.9, phosphorous 2.4, magnesium 2.3. Repeat troponin from admission which was elevated now shows return to baseline at 0.21. MICROBIOLOGY: He has wound cultures and urine cultures that are both pending. RADIOLOGY: No repeat radiographic studies are completed today. ASSESSMENT: 1. Severe sepsis secondary to underlying urinary tract infection with cultures currently pending with patient on parenteral antibiotics to include Cefepime. 2. Acute on chronic kidney disease with acute exacerbation secondary to underlying sepsis and infection and some dehydration, showing improvement with sodium bicarb drip with creatinine at near baseline levels of 2.2. 3. Metabolic acidosis secondary to underlying sepsis resolved with treatment and initiation of fluids, antibiotics and sodium bicarb now showing a slight elevation of C02 with concerns for possible over-compensation to the metabolic alkalotic state. 4. Altered mental status showing improvement after initiation of treatment. 5. Hypokalemia improved with replacement. 6. Pre-existing right ankle decubitus being currently followed by Dr. Zuniga with no obvious signs of cellulitis or purulent drainage. PLAN: Will continue to follow current plan of care with Cefepime and await final culture results to further target antibiotic therapy. Given his C02 is up today, I have stopped his sodium bicarb. Will continue to replace his potassium as needed. Will defer wound management of right ankle to Dr. Zuniga. Will continue DVT prophylaxis and will anticipate at least another 24 to 48 hours prior to discharge with anticipation of discharge possibly either late Monday or Monday. Until discharge, we will continue to monitor him closely and treat appropriately #[id number] [facility]
[2017-09-16] MEDS: KCL 20MEQ/0.45% NS 1,000 ML IVS PRN (11:25)
[2017-09-16] MEDS: ARIPiprazole 5 MG TAB PO SCH (11:26)
[2017-09-16] MEDS: DULoxetine HCL 30 MG CAP PO SCH (11:26)
[2017-09-16] MEDS: OXYBUTYNIN CL 5 MG TAB PO SCH (11:26)
[2017-09-16] MEDS ORDERED: levoFLOXacin 500MG IV 100 ML IVPB ONE (13:40)
[2017-09-16] MEDS: METOPROLOL SUCCINATE XL 25 MG TAB PO SCH (13:44)
[2017-09-16] MEDS: CETIRIZINE HCL 10 MG TAB PO SCH (13:45)
[2017-09-16] MEDS: guaiFENesin ER TAB 600 MG TAB PO SCH ×2 (13:45→20:37)
[2017-09-16] MEDS: CILOSTAZOL 100 MG TAB PO SCH ×2 (13:45→20:37)
[2017-09-16] MEDS: IV SET AND CAP CHANGE INJ INJ SCH (16:15)
[2017-09-16] MEDS: ENOXAPARIN SODIUM 30 MG/0.3 ML SYG SUBCU SCH (16:29)
--- NOTE | 2017-09-16 18:49 | PN ---
DATE: 09/16/17 SUPERVISING PHYSICIAN: Carroll Russo M.D. SUBJECTIVE: The patient is still alert but is nonverbal. He appears to be in no acute distress. He follows basic commands. He has remained afebrile and is showing to be hemodynamically stable. He did have a blood cultures today that came back, final culture result with Proteus mirabilis that was sensitive to Levaquin as well as his urine culture final result showed Proteus mirabilis which was sensitive to Levaquin as well, but resistant to first, second and third generation cephalosporins and likely resistant to fourth generation. OBJECTIVE: VITAL SIGNS: Temperature 98.5, pulse 64, blood pressure 121/71, heart rate was 20, respiratory rate 20, satting 96% on nasal cannula at 2 liters. I's and O's showed a negative balance of 1670 with 980 in, 2650 out. Weight 97.4 kg. CHEST: Lungs are diminished throughout but no rhonchi or wheezing were noted. HEART: Regular rate and rhythm. ABDOMEN: Obese but soft, non-tender. Positive bowel sounds. EXTREMITIES: No clubbing, cyanosis or edema. NEUROLOGIC: He is alert but is nonverbal. He will follow basic commands and moves all extremities ad jenny. LABORATORY: Chemistries today show a continued hypokalemia with potassium 2.9 with BUN 60 which has improved and creatinine that has continued to improve which is down to 1.74 from admission of 3.95. Serum osmolality is 305, calcium 8.0. MICROBIOLOGY: Wound culture shows numerous gram positive cocci with culture pending. Final urine culture results shows Proteus mirabilis that was sensitive to Levaquin but resistant to cephalosporins. He had a blood culture that was showing to be positive that was collected on 09/13/17 which showed a gram negative bacilli initially with final results showing Proteus mirabilis. Again, sensitivity shows it is sensitive to Levaquin and this one was sensitive to Cefepime. RADIOLOGY: No additional radiographic studies today. ASSESSMENT: 1. Sepsis with bacteremia secondary to urinary tract infection both showing cultures of Proteus mirabilis but with definite sensitivities with the patient having been on Cefepime. The Proteus mirabilis from the blood culture showed sensitive to cephalosporins and Levaquin whereas the urine culture showed sensitive to Levaquin and resistant to cephalosporin. The patient has shown good clinical response to treatment likely because the sensitivity pattern was different on the organism in the blood being sensitive to Cefepime with the patient now being transitioned to Levaquin to cover both urine and blood cultures. 2. Acute on chronic kidney disease with an exacerbation secondary to #1 and dehydration, improved with sodium bicarb infusion as well as IV fluids. 3. Metabolic acidosis secondary to underlying sepsis from #1, resolved with initiation of fluids, antibiotics and sodium bicarb infusion and showing to be stable now with an elevated CO2 but showing to be stable at 32 which likely is the patient's baseline. 4. Altered mental status improving with initiation of antibiotic therapy, appears to be back to baseline mental status. 5. Persistent hypokalemia from acute renal insufficiency showing slow clinical improvement but showing to be stable with replacement. 6. Pre-existing right ankle decubitus occurring at the custodial with culture results showing gram positive cocci and awaiting further results for sensitivity and identification with Dr. Zuniga on consultation and wound management with the wound showing no signs of cellulitis or purulent drainage. PLAN: Given his cultures are now complete showing the urine and blood culture both having Proteus mirabilis but different sensitivity patterns, will target antibiotic therapy accordingly. Both of the organisms were sensitive to Levaquin but the one in the urine was resistant to Cefepime, therefore will continue with Levaquin for treatment of the urinary tract as well as the bacteremia. He has shown some diuresis and has been off IV fluids, but now shows some increase in his osmolality likely because he is not having great oral intake, therefore I will start him on some IV fluids with half normal saline with 20 of potassium as well as to assist with improving his potassium level. Wound management continues with Dr. Zuniga and will await final cultures on that to rule out possible MRSA, but no obvious signs of infection on the wound, therefore the patient was not started on vancomycin currently. He continues on DVT prophylaxis and will need ocean transportation intermediary therapy at least 14 days continued on Levaquin for treatment of the bacteremia. Likely he can be discharged on p.o. medication. Certainly will benefit from touching base with Infectious Disease, Dr. Lin, in regards to final discharge disposition and antibiotic therapy in regards to possibly needing an echocardiogram versus not given that he had a gram negative arcadio identified as Proteus mirabilis. Until then, will continue to monitor and treat appropriately. #[id number] [facility]
[2017-09-17] MEDS: IPRATROPIUM/ALBUTEROL 3 ML VIAL NEB SCH ×4 (00:40→18:04)
[2017-09-17] MEDS: KCL 20MEQ/0.45% NS 1,000 ML IVS PRN (01:25)
[2017-09-17] MEDS: INSULIN LISPRO 100 UNITS/ML PEN SUBCU SCH ×4 (07:51→21:14)
[2017-09-17] MEDS: POTASSIUM CHLORIDE 20 MEQ TAB PO SCH (08:07)
[2017-09-17] MEDS ORDERED: levoFLOXacin 250MG IV 50 ML IVPB ONE (09:16)
[2017-09-17] MEDS ORDERED: levoFLOXacin 250MG IV 250 MG in PREMIX BAG 1 BAG IVPB SCH (10:00)
[2017-09-17] MEDS: DULoxetine HCL 30 MG CAP PO SCH (10:03)
[2017-09-17] MEDS: SODIUM CHLORIDE 0.9% (FLUSH) 10 ML SYG IV SCH ×2 (10:03→20:39)
[2017-09-17] MEDS: CETIRIZINE HCL 10 MG TAB PO SCH (10:03)
[2017-09-17] MEDS: OXYBUTYNIN CL 5 MG TAB PO SCH (10:03)
[2017-09-17] MEDS: CILOSTAZOL 100 MG TAB PO SCH ×2 (10:03→20:40)
[2017-09-17] MEDS: ARIPiprazole 5 MG TAB PO SCH (10:03)
[2017-09-17] MEDS: guaiFENesin ER TAB 600 MG TAB PO SCH ×2 (10:03→20:40)
[2017-09-17] MEDS: METOPROLOL SUCCINATE XL 25 MG TAB PO SCH (13:59)
--- NOTE | 2017-09-17 14:07 | PN ---
SUPERVISING PHYSICIAN: Carroll Russo MD DATE: 09/17/17 SUBJECTIVE: The patient is sitting up in his hospital bed. He has no complaints of nausea, vomiting, diarrhea or chest pain or shortness of breath. OBJECTIVE: VITAL SIGNS: He is afebrile. Heart rate 59, blood pressure 94/56, respiratory rate 18, 02 saturation 93% on 2 liters nasal cannula. RESPIRATORY: Essentially clear to auscultation bilaterally. They are diminished at the bases. CARDIAC: Regular rate and rhythm. GI: Abdomen soft, nondistended, non-tender. Bowel sounds are positive. EXTREMITIES: No cyanosis, clubbing, or edema. The wound to the medial aspect of his right heel has an area of about 3 cm of erythema with the central portion that has no drainage other than a very small amount of blood. There is no purulent fluid noted or any fluctuance to the wound. NEURO: He is hard of hearing. He is awake and alert. LABORATORY: WBC 7.6, hemoglobin 12.3, hematocrit 36.4. Sodium 140, potassium 3.8, chloride 103, carbon dioxide is 30. BUN 48, creatinine has improved to 1.51. Calcium 8.1. Current microbiology reports are unavailable at this time. All other labs and films have been reviewed via the EMR. ASSESSMENT: 1. Sepsis with bacteremia secondary to urinary tract infection both showing cultures of Proteus mirabilis but with definite sensitivities with the patient having been on Cefepime. The Proteus mirabilis from the blood culture showed sensitive to cephalosporins and Levaquin whereas the urine culture showed sensitive to Levaquin and resistant to cephalosporin. The patient has shown good clinical response to treatment likely because the sensitivity pattern was different on the organism in the blood being sensitive to Cefepime with the patient now being transitioned to Levaquin to cover both urine and blood cultures. 2. Acute on chronic kidney disease with an exacerbation secondary to #1 and dehydration.. 3. Metabolic acidosis secondary to underlying sepsis from #1, resolved with initiation of fluids, antibiotics and sodium bicarb infusion and showing to be stable now with an elevated CO2 but showing to be stable at 32 which likely is the patient's baseline. 4. Altered mental status improving with initiation of antibiotic therapy, appears to be back to baseline mental status. 5. Persistent hypokalemia from acute renal insufficiency showing slow clinical improvement but showing to be stable with replacement. 6. Pre-existing right ankle decubitus occurring at the residential with culture results showing gram positive cocci and awaiting further results for sensitivity and identification with Dr. Zuniga on consultation and wound management with the wound showing no signs of cellulitis or purulent drainage. PLAN: We will continue present supportive care. He is presently on Levaquin and I will continue to monitor the culture results as they become available. I have discontinued his IV fluids. His labs have fairly well stabilized and most likely he can be discharged back to [facility] tomorrow on Levaquin but will await his wound culture results. We will continue to monitor him closely and follow as needed. Dr. Russo is the collaborating physician available for consultation. [facility][id number] [facility]
[2017-09-17] MEDS: FLUTICASONE PROP 0.05% NASAL 16 GM BTTL BNAS SCH (15:16)
[2017-09-17] MEDS: ENOXAPARIN SODIUM 30 MG/0.3 ML SYG SUBCU SCH (15:17)
[2017-09-18] MEDS: IPRATROPIUM/ALBUTEROL 3 ML VIAL NEB SCH ×4 (00:49→17:08)
[2017-09-18] MEDS: INSULIN LISPRO 100 UNITS/ML PEN SUBCU SCH ×4 (07:36→21:00)
[2017-09-18] MEDS: POTASSIUM CHLORIDE 20 MEQ TAB PO SCH (07:37)
[2017-09-18] MEDS: ARIPiprazole 5 MG TAB PO SCH (08:34)
[2017-09-18] MEDS: DULoxetine HCL 30 MG CAP PO SCH (08:34)
[2017-09-18] MEDS: guaiFENesin ER TAB 600 MG TAB PO SCH ×2 (08:34→20:30)
[2017-09-18] MEDS: METOPROLOL SUCCINATE XL 25 MG TAB PO SCH (08:35)
[2017-09-18] MEDS: CILOSTAZOL 100 MG TAB PO SCH ×2 (08:35→20:30)
[2017-09-18] MEDS: OXYBUTYNIN CL 5 MG TAB PO SCH (08:36)
[2017-09-18] MEDS: SODIUM CHLORIDE 0.9% (FLUSH) 10 ML SYG IV SCH ×2 (08:36→20:31)
[2017-09-18] MEDS: CETIRIZINE HCL 10 MG TAB PO SCH (08:36)
[2017-09-18] MEDS: FLUTICASONE PROP 0.05% NASAL 16 GM BTTL BNAS SCH (08:45)
[2017-09-18] MEDS ORDERED: levoFLOXacin 500 MG TAB PO SCH (10:00)
[2017-09-18] MEDS: ENOXAPARIN SODIUM 30 MG/0.3 ML SYG SUBCU SCH (14:37)
--- NOTE | 2017-09-18 18:27 | PN ---
DATE: 09/18/17 SUPERVISING PHYSICIAN: Butch Haider M.D. SUBJECTIVE: The patient is lying in his bed. He is asleep. He awakens easily. Has no complaints of chest pain, nausea, vomiting, diarrhea or shortness of breath. OBJECTIVE: VITAL SIGNS: He is afebrile, heart rate 60, blood pressure 113/60, respiratory rate 18, O2 sat 96% on 1 liter nasal cannula. RESPIRATORY: Diminished throughout but otherwise clear to auscultation. CARDIAC: Regular rate and rhythm. GASTROINTESTINAL: Abdomen is soft. It is rounded. It is nondistended, non-tender. Bowel sounds are positive. EXTREMITIES: The wound to the medial aspect of his right heel has not changed overnight. It has a small area of about 3 cm of erythema with the central portion has no drainage other than a very small amount of blood. No purulent fluid or fluctuance is noted. NEUROLOGIC: He is awake and alert. LABORATORY: There are no labs or films to report at this time as we are still awaiting sensitivity reports as the wound culture shows a gram positive cocci and the patient is presently on Levaquin. ASSESSMENT: 1. Sepsis with bacteremia secondary to urinary tract infection both showing cultures of Proteus mirabilis but with definite sensitivities with the patient having been on Cefepime. The Proteus mirabilis from the blood culture showed sensitive to cephalosporins and Levaquin whereas the urine culture showed sensitive to Levaquin and resistant to cephalosporin. The patient has shown good clinical response to treatment likely because the sensitivity pattern was different on the organism in the blood being sensitive to Cefepime with the patient now being transitioned to Levaquin to cover both urine and blood cultures. 2. Acute on chronic kidney disease with an exacerbation secondary to #1 and dehydration.. 3. Metabolic acidosis secondary to underlying sepsis from #1, resolved with initiation of fluids, antibiotics and sodium bicarb infusion and showing to be stable now with an elevated CO2 but showing to be stable at 32 which likely is the patient's baseline. 4. Altered mental status improving with initiation of antibiotic therapy, appears to be back to baseline mental status. 5. Persistent hypokalemia from acute renal insufficiency showing slow clinical improvement but showing to be stable with replacement. 6. Pre-existing right ankle decubitus occurring at the [facility] with culture results showing gram positive cocci and awaiting further results for sensitivity and identification with Dr. Zuniga on consultation and wound management with the wound showing no signs of cellulitis or purulent drainage. PLAN: We will continue present supportive care. He is presently on Levaquin. We continue to wait for wound cultures to drive our antibiotic therapy. I have spoken to both Dr. Haider and Dr. Zuniga, and they both agree that he should not be discharged until the sensitivities are reported so that he can be on the appropriate antibiotic therapy. For now, will continue to monitor him closely and follow as needed. Dr. Haider is the collaborating physician available for consultation. #[id number] [facility]
[2017-09-19] MEDS: IPRATROPIUM/ALBUTEROL 3 ML VIAL NEB SCH ×4 (00:13→17:59)
[2017-09-19] MEDS: INSULIN LISPRO 100 UNITS/ML PEN SUBCU SCH ×4 (07:28→21:50)
[2017-09-19] MEDS: POTASSIUM CHLORIDE 20 MEQ TAB PO SCH (08:04)
[2017-09-19] MEDS: guaiFENesin ER TAB 600 MG TAB PO SCH ×2 (08:05→21:51)
[2017-09-19] MEDS: CETIRIZINE HCL 10 MG TAB PO SCH (08:05)
[2017-09-19] MEDS: CILOSTAZOL 100 MG TAB PO SCH ×2 (08:05→21:50)
[2017-09-19] MEDS: OXYBUTYNIN CL 5 MG TAB PO SCH (08:05)
[2017-09-19] MEDS: METOPROLOL SUCCINATE XL 25 MG TAB PO SCH (08:05)
[2017-09-19] MEDS: ARIPiprazole 5 MG TAB PO SCH (08:06)
[2017-09-19] MEDS: DULoxetine HCL 30 MG CAP PO SCH (08:06)
[2017-09-19] MEDS: FLUTICASONE PROP 0.05% NASAL 16 GM BTTL BNAS SCH (08:09)
[2017-09-19] MEDS: SODIUM CHLORIDE 0.9% (FLUSH) 10 ML SYG IV SCH ×2 (08:12→21:52)
[2017-09-19] MEDS: ENOXAPARIN SODIUM 40 MG/0.4 ML SYG SUBCU SCH (10:42)
[2017-09-19] MEDS: levoFLOXacin 500 MG TAB PO SCH (10:42)
[2017-09-19] MEDS: IV SET AND CAP CHANGE INJ INJ SCH (17:15)
[2017-09-19] MEDS: AMOXICILLIN & POT CLAVULANATE 875 MG TAB PO SCH (17:16)
[2017-09-19] MEDS: DOXYCYCLINE HYCLATE CAP 100 MG CAP PO SCH (21:51)
[2017-09-20] MEDS: IPRATROPIUM/ALBUTEROL 3 ML VIAL NEB SCH ×2 (00:10→06:09)
[2017-09-20] MEDS: AMOXICILLIN & POT CLAVULANATE 875 MG TAB PO SCH (05:34)
[2017-09-20] MEDS: POTASSIUM CHLORIDE 20 MEQ TAB PO SCH (07:06)
[2017-09-20] MEDS: INSULIN LISPRO 100 UNITS/ML PEN SUBCU SCH (07:07)
--- NOTE | 2017-09-20 08:02 | PN ---
SUPERVISING PHYSICIAN: Butch Haider MD DATE: 09/19/17 SUBJECTIVE: The patient is lying in bed. He has no complaints of chest pain, nausea, vomiting, diarrhea, or shortness of breath. He is somewhat confused today, but mostly at his baseline. OBJECTIVE: VITAL SIGNS: Afebrile. Heart rate 62. Blood pressure 142/76. Respiratory rate 20. O2 sat 94% on 1 liter nasal cannula. RESPIRATORY: Diminished breath sounds throughout. CARDIAC: Regular rate and rhythm. EXTREMITIES: Dressing to his right heel is dry and intact. NEUROLOGIC: Awake and alert. Answers simple questions appropriately. LABORATORY: Wound culture sensitivities have been resulted and is positive for MRSA, sensitive to doxycycline. It is also positive for Enterococcus and sensitive to ampicillin. Blood sugars have run between 134 and 155. All other labs and films have been reviewed via the EMR. ASSESSMENT: 1. Sepsis with bacteremia secondary to urinary tract infection both showing cultures of Proteus mirabilis sensitive to Levaquin. 2. Acute on chronic kidney disease with an exacerbation secondary to #1 and dehydration. 3. Metabolic acidosis secondary to underlying sepsis from #1, resolved with initiation of fluids, antibiotics and bicarb infusion and showing to be stable now. 4. Altered mental status, improved. 5. Acute renal insufficiency. 6. Pre-existing right ankle decubitus occurring at the alf with culture results showing gram positive cocci and the culture results were available today, positive for methicillin-resistant Staphylococcus aureus as well as Enterococcus. MRSA was sensitive to doxycycline and Enterococcus sensitive to ampicillin. PLAN: We will continue present supportive care. I spoke with Dr. Lin, infectious disease physician in [place]. She recommended the patient the patient continue on Levaquin for the Proteus and to start doxycycline and Augmentin for 4 weeks. The Levaquin is to be continued for a total of 14 days of antibiotic therapy. We will start doxycycline and Augmentin this evening. He has been transitioned to oral Levaquin and Dr. Zuniga, general surgeon, has requested that the patient stay overnight to monitor his response to the antibiotics. We will plan for discharge tomorrow on 4 weeks total of doxycycline and Augmentin as well as 14 total days of Levaquin. We will continue to monitor the patient closely and follow as needed. Dr. Haider is the collaborating physician and available for consultation. #[id number] [facility]
[2017-09-20] MEDS: DULoxetine HCL 30 MG CAP PO SCH (08:33)
[2017-09-20] MEDS: ARIPiprazole 5 MG TAB PO SCH (08:33)
[2017-09-20] MEDS: CILOSTAZOL 100 MG TAB PO SCH (08:34)
[2017-09-20] MEDS: OXYBUTYNIN CL 5 MG TAB PO SCH (08:34)
[2017-09-20] MEDS: levoFLOXacin 500 MG TAB PO SCH (08:34)
[2017-09-20] MEDS: SODIUM CHLORIDE 0.9% (FLUSH) 10 ML SYG IV SCH (08:34)
[2017-09-20] MEDS: METOPROLOL SUCCINATE XL 25 MG TAB PO SCH (08:34)
[2017-09-20] MEDS: guaiFENesin ER TAB 600 MG TAB PO SCH (08:34)
[2017-09-20] MEDS: DOXYCYCLINE HYCLATE CAP 100 MG CAP PO SCH (08:34)
[2017-09-20] MEDS: ENOXAPARIN SODIUM 40 MG/0.4 ML SYG SUBCU SCH (08:35)
[2017-09-20] MEDS: FLUTICASONE PROP 0.05% NASAL 16 GM BTTL BNAS SCH (08:35)
[2017-09-20] MEDS: CETIRIZINE HCL 10 MG TAB PO SCH (08:35)
[2017-09-20 10:10] VITALS: BP 148/83; TEMP 98.2; O2SAT 95
--- NOTE | 2017-09-21 09:18 | DS ---
SUPERVISING PHYSICIAN: Butch Haider MD DISCHARGE DIAGNOSIS: 1. Sepsis with bacteremia secondary to urinary tract infection with cultures showing Proteus mirabilis sensitive to Levaquin. 2. Acute on chronic kidney disease with an exacerbation secondary to #1 and dehydration. 3. Metabolic acidosis secondary to underlying sepsis from #1, resolved with initiation of fluids, antibiotics and bicarb infusion and showing to be stable now. 4. Altered mental status, improved. 5. Acute renal insufficiency. 6. Pre-existing right ankle decubitus occurring at the senior care with culture results showing gram positive cocci and the culture results positive for methicillin-resistant Staphylococcus aureus as well as Enterococcus. MRSA was sensitive to doxycycline and Enterococcus sensitive to ampicillin. HISTORY OF PRESENT ILLNESS: This is a 76-year-old male patient who is a resident of [facility]. He was brought to the Emergency Room due to altered mental status. A urinalysis was done a few days ago, but were waiting on the culture results to start antibiotics. The actual treatment had not yet begun. In the Emergency Room, he was noted to have leukocytosis with a white count of 17.4, hemoglobin 14.3, platelet count 229. Arterial blood gas showed a compensated metabolic acidosis. Chemistry showed an elevation in BUN and creatinine of 99 and 3.95, respectively. Glucose was 225. Bilirubin 1.9. Troponin mildly elevated at 0.42. Lactic acid was 2.0. Urinalysis was significant for a urinary tract infection with large leukocytes, urine WBCs greater than 50, urine bacteria 4+. The patient was a Do Not Resuscitate. He was slightly hypotensive at first, but improved with fluid administration. He was referred for admission by the Emergency Room physician for severe sepsis. HOSPITAL COURSE: He was treated for severe sepsis. Cultures were ordered. He had a significant heel wound and vancomycin was initiated for the treatment of that heel cellulitis. He was started on cefepime for the urinary tract infection pending culture results. Dr. Zuniga was consulted in regard to the heel wound. He improved initially. He had to have his potassium replaced several times. His urine culture results showed Proteus mirabilis sensitive to cefepime. The blood culture showed Proteus mirabilis sensitive to cephalosporins and Levaquin. The urine culture was sensitive to Levaquin, but resistant to cephalosporins, so the patient was transitioned to Levaquin. After reviewing the chart, I am not quite certain why the vancomycin was discontinued, but the heel wound showed a pressure ulcer of the skin and subcutaneous tissue of the right heel. There is minimal edema. There was a small central area of eschar that had no signs or symptoms of infection, although the wound culture initially came back as gram positive cocci. Wound culture results were difficult to obtain and on the day prior to discharge, results were received and the wound culture was positive for methicillin- resistant Staphylococcus aureus as well as Enterococcus. The MRSA was sensitive to doxycycline and the Enterococcus was sensitive to ampicillin. Recommendation by Dr. Lin, infectious disease physician in [place], was to send the patient home on 4 weeks for doxycycline and Augmentin as well as 14 total days of Levaquin after she reviewed the culture and sensitivities. The patient will be discharged to [facility] today. PLAN: The patient will be discharged to [facility] today in stable condition. He is to resume his previous activity as well as his previous diet and medications. He is to followup with Dr. Russo or return to the hospital for any further problems or complications. He is to have a followup with Dr. Russo within 2 weeks. He will be discharged on a probiotic b.i.d. as well as Augmentin and doxycycline for 4 weeks. His Levaquin will be continued for 10 days. DISCHARGE MEDICATIONS: 1. Vitamin C. 2. Trazodone. 3. Temazepam. 4. Pantoprazole. 5. Oxybutynin. 6. Furosemide. 7. Cymbalta. 8. Pletal. 9. Aripiprazole. 10. Flonase nasal. 11. Clonazepam. 12. Lantus. 13. Clonidine. 14. Multivitamins. 15. Humalog insulin. 16. Lomotil. 17. Nystatin. 18. Dulcolax. 19. Proventil. 20. Guaifenesin. 21. Ipratropium. 22. Align. 23. Metoprolol succinate. 24. Zinc sulfate. 25. Ventralex. 26. Tylenol with codeine No 3. 27. Tessalon Perles. 28. Robitussin children's cough liquid. 29. Lactobacillus. 30. Cetirizine. 31. Augmentin. 32. Doxycycline. 33. Levaquin. #[id number] [facility]
== END 2017-09-20 11:25 | DRG 872 ==
LOC: ER 08:39 → OBSVTOIN 12:57 → MS 12:57
PROVIDERS: ADMIT Nurse Practitioner; ATTEND Nurse Practitioner Acute Care
DX: A41.9 Sepsis, unspecified organism (principal); N39.0 Urinary tract infection, site not specified; N17.9 Acute kidney failure, unspecified; L03.115 Cellulitis of right lower limb; R65.20 Severe sepsis without septic shock; L89.519 Pressure ulcer of right ankle, unspecified stage; E86.0 Dehydration; N18.9 Chronic kidney disease, unspecified; E87.6 Hypokalemia; E11.9 Type 2 diabetes mellitus without complications; L89.159 Pressure ulcer of sacral region, unspecified stage; I25.10 Atherosclerotic heart disease of native coronary artery without angina pectoris; J44.9 Chronic obstructive pulmonary disease, unspecified; R13.10 Dysphagia, unspecified; I12.9 Hypertensive chronic kidney disease with stage 1 through stage 4 chronic kidney disease, or unspecified chronic kidney disease; M19.90 Unspecified osteoarthritis, unspecified site; K21.9 Gastro-esophageal reflux disease without esophagitis; R74.8 Abnormal levels of other serum enzymes; F41.9 Anxiety disorder, unspecified; E78.5 Hyperlipidemia, unspecified; F79 Unspecified intellectual disabilities; E11.51 Type 2 diabetes mellitus with diabetic peripheral angiopathy without gangrene; B96.4 Proteus (mirabilis) (morganii) as the cause of diseases classified elsewhere; B95.2 Enterococcus as the cause of diseases classified elsewhere; B95.62 Methicillin resistant Staphylococcus aureus infection as the cause of diseases classified elsewhere; E66.9 Obesity, unspecified; Z66 Do not resuscitate; Z95.0 Presence of cardiac pacemaker; Z95.1 Presence of aortocoronary bypass graft; Z79.4 Long term (current) use of insulin; Z79.899 Other long term (current) drug therapy; Z68.27 Body mass index [BMI] 27.0-27.9, adult

== ENCOUNTER → 2019-07-30 | Outpatient (CLI) | payer MEDICARE, MEDICAID | LOC: GOCC 06:36 | PROVIDERS: ATTEND Family Medicine | DX: N17.9 Acute kidney failure, unspecified (principal); J18.9 Pneumonia, unspecified organism; R30.0 Dysuria ==

== ENCOUNTER 2019-08-02 00:43 | Emergency (ER) | payer MEDICARE, MEDICAID ==
--- NOTE | 2019-08-02 01:59 | CT ---
EXAM: CT Chest, Abdomen and Pelvis Without Intravenous Contrast CLINICAL HISTORY: The patient is 78 years old and is Male; gi bleed , pain, rales TECHNIQUE: Axial computed tomography images of the chest, abdomen and pelvis without intravenous contrast. Sagittal and coronal reformatted images were created and reviewed. This CT exam was performed using one or more of the following dose reduction techniques: automated exposure control, adjustment of the mA and/or kV according to patient size, and/or use of iterative reconstruction technique. COMPARISON: CT of the abdomen and pelvis June 27, 2017. FINDINGS: ARTIFACTS: The exam is suboptimal secondary to motion artifact. CHEST: LUNGS: Chronic septal thickening and cystic change within the lung bases is noted with minimal left basilar atelectasis. PLEURAL SPACE: Unremarkable. No significant effusion. No pneumothorax. HEART: The heart is enlarged. There is no pericardial effusion. MEDIASTINUM: Mild diffuse thickening of the esophageal wall is present. ABDOMEN: LIVER: The liver is enlarged with a slight contour. GALLBLADDER AND BILE DUCTS: The gallbladder is distended with several calcified gallstones present. There is no ductal dilatation. PANCREAS: Fatty infiltration of the pancreas is present. No ductal dilation. SPLEEN: Unremarkable. ADRENALS: Bilateral adrenal gland hyperplasia is noted. KIDNEYS AND URETERS: The kidneys are minimally atrophic. There is no hydronephrosis or hydroureter of either kidney. No obstructing renal or ureteral calculus is seen. STOMACH AND BOWEL: The stomach is distended with air and fluid. The small bowel is normal in caliber. Stool is present throughout colon. There is no mucosal thickening or evidence of bowel obstruction. PELVIS: APPENDIX: The appendix is normal in caliber without surrounding inflammation. BLADDER: The bladder is decompressed with Barton catheter in place. No stones. REPRODUCTIVE: Unremarkable as visualized. CHEST, ABDOMEN and PELVIS: INTRAPERITONEAL SPACE: Unremarkable. No significant fluid collection. No free air. BONES/JOINTS: Median sternotomy wires are present. 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 Multilevel degenerative change of the lumbar spine is noted. SOFT TISSUES: The soft tissues are normal. VASCULATURE: Atherosclerosis of the vasculature is present. No aortic aneurysm. LYMPH NODES: Unremarkable. No enlarged lymph nodes. TUBES, LINES AND DEVICES: Dual lead left-sided pacemaker is noted. IMPRESSION: 1. Mild diffuse esophageal wall thickening which may be secondary to an infectious versus inflammatory process. 2. No bowel obstruction. 3. Cholelithiasis with distended gallbladder. 4. Chronic findings as detailed above. Electronically signed by: Kathleen Peter MD 08/02/2019 1:58 AM CDT
[2019-08-02] MEDS ORDERED: SUCRALFATE 1 GM/10 ML 1 GM UD PO ONE (02:57)
[2019-08-02] MEDS ORDERED: PANTOPRAZOLE SODIUM TAB 40 MG PO ONE (02:57)
--- NOTE | 2019-08-02 03:12 | ED.PDOC ---
History of Present Illness - General Chief Complaint: GI Problem Stated Complaint: bloody stool Time Seen by Provider: 08/02/19 00:51 Source: patient, EMS notes reviewed, [facility] Exam Limitations: clinical condition - History of Present Illness Initial Comments: The patient is a 78-year-old male presenting to the emergency room secondary to have the past 2 bloody bowel movements at the [facility] over the course of the afternoon. No evidence of any abdominal pain on exam. No nausea or vomiting. He is not on any blood thinners. He is not taking any NSAIDs. He does take Pletal for peripheral vascular disease. The patient apparently had a mild upper GI bleed in late 2016 or early 2017. He was sent to [facility] at that time but did not have any record of what work-up was done or what was found. The patient does take pantoprazole at the [facility]. Bowel movement that the patient had here was melanotic. The patient is currently undergoing treatment for a small aspiration pneumonia. He has frequent episodes of aspiration and frequent resulting pneumonias and pneumonitis. The patient has a longstanding history of COPD with oxygen dependence. Patient also has a history of chronic renal insufficiency, diabetes, mental retardation, chronic dysphasia with recurrent aspiration episodes, hypertension, depression, anxiety, chronic low back pain, CHF, questionable early cirrhosis of the liver, diffuse vascular disease including peripheral vascular disease as well as coronary artery disease. He has apparently had a CABG in the past along with AICD placement and stents. The patient reporting any unusual shortness of breath or chest pain. He does have a significant cough. He is holding his oxygen levels on his baseline nasal cannula flow. Again no abdominal pain. No recent trauma. Timing/Duration: other - 8 to 10 hours Severity: moderate Improving Factors: nothing Worsening Factors: nothing Associated Symptoms: denies symptoms Allergies/Adverse Reactions: Allergies NO KNOWN ALLERGY Allergy (Verified 09/13/17 13:28) Home Medications: Ambulatory Orders Ascorbic Acid [Vitamin C] 500 mg PO DAILY #0 08/26/14 Cilostazol [Pletal] 100 mg PO BID 08/26/14 Duloxetine HCl [Cymbalta] 120 mg PO DAILY 08/26/14 Furosemide 40 mg PO DAILY 08/26/14 Oxybutynin Chloride [Oxybutynin Chloride ER] 5 mg PO DAILY 08/26/14 Pantoprazole Sodium 40 mg PO DAILY 08/26/14 Temazepam 15 mg PO BEDTIME 08/26/14 Trazodone HCl 150 mg PO BEDTIME 08/26/14 Aripiprazole 20 mg PO DAILY 01/16/17 Fluticasone Prop 0.05% Nasal [Flonase Nasal [place]] 2 spray INH DAILY 01/16/17 Insulin Glargine [Lantus Solostar] 10 unit SC BEDTIME #1 pack 02/11/17 Albuterol Sulfate Nebs [Proventil Nebs] 2.5 mg NEB BID PRN 03/31/17 Bisacodyl Suppository 10Mg [Dulcolax Suppository 10mg] 10 mg SD DAILY PRN 03/31/17 Clonidine HCl 0.1 mg PO Q4H PRN 03/31/17 Diphenoxylate/Atropine [Lomotil Tab] 2.5 mg PO Q6HR PRN 03/31/17 Insulin Lispro [Humalog] 100 unit SC ACHS 03/31/17 Multiple Vitamins W/ Minerals [Multivitamin Men] 1 tab PO DAILY 03/31/17 Guaifenesin [Mucinex] 600 mg PO BID 04/21/17 Ipratropium [place] 0.02 % IN Q6H PRN 04/21/17 Acetaminophen W/ Codeine [Tylenol W/ CODEINE #3] 1 - 2 ea PO Q4H PRN 09/13/17 Benzonatate Perles [Tessalon Perles] 1 - 2 mg PO TID PRN 09/13/17 Cetirizine HCl [Zyrtec] 10 mg PO DAILY 09/13/17 Lactobacillus [Acidophilus Lactobacilli] 1 cap PO TID 09/13/17 levoFLOXacin [Levaquin] 500 mg PO DAILY #10 tab 09/20/17 Levocetirizine Dihydrochloride [Xyzal Allergy 24Hr] 5 mg PO DAILY 08/02/19 Loperamide Cap [Imodium Cap] 2 mg PO DAILY 08/02/19 Metoprolol Tartrate 12.5 mg PO DAILY 08/02/19 Review of Systems - Review of Systems Review of Systems: 08/02/19 03:15 The patient is not a very reliable source. Constitutional: States: no symptoms reported EENTM: States: no symptoms reported Respiratory: States: cough, short of breath - Chronic Cardiology: States: no symptoms reported Gastrointestinal/Abdominal: States: diarrhea Genitourinary: States: no symptoms reported Musculoskeletal: States: back pain - Chronic Skin: States: no symptoms reported Neurological: States: see HPI Endocrine: States: no symptoms reported All other Systems: No Change from Baseline Past Medical History (General) - Patient Medical History Hx Seizures: No Hx Stroke: No Hx of COPD: Yes Hx Cardiac Disorders: Yes Hx Congestive Heart Failure: No Hx Pacemaker: Yes Hx Hypertension: Yes Hx Diabetes: Yes Hx Gastroesophageal Reflux: Yes Hx Renal Disease: Yes - kidnye failure Hx MRSA: No - Vaccination History Hx Influenza Vaccination: Yes Hx Pneumococcal Vaccination: Yes - Social History Hx Tobacco Use: No - Activities of Daily Living Residential/Assisted Living (if applicable):: [facility] Family Medical History - Family History Father Family History: Unknown Physical Exam - Physical Exam General Appearance: Alert, No apparent distress Eye Exam: bilateral normal Ears, Nose, Throat: other - Chronic decreased hearing. you have to yell. Neck: non-tender, supple Respiratory: no respiratory distress, no accessory muscle use, rhonchi - Coarse and scattered Cardiovascular/Chest: irregularly irregular, other - Trace edema Peripheral Pulses: radial,right: 2+, radial,left: 2+ Gastrointestinal/Abdominal: non tender - Obese, soft Rectal Exam: other - No obvious external hemorrhoid. Good muscle tone. Melanotic stool. 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 Knows who he is and that he is at the hospital. Skin Exam: normal color Comments: Vital Signs - 24 hr 08/02/19 08/02/19 08/02/19 00:57 01:49 02:37 Temperature 99.7 F H Pulse Rate [ 66 62 62 left] Respiratory 22 22 22 Rate Blood Pressure 145/78 143/94 131/56 [left] O2 Sat by Pulse 96 98 96 Oximetry Progress - Progress Progress: 08/02/19 03:23 The patient is a 78-year-old male [facility] secondary to having several bloody and then melanotic bowel movements. The patient has received Protonix and Carafate. Vital signs have remained stable. H&H is reassuring at this time. The patient is being transferred for GI evaluation. There was no mention of any cirrhosis on the CT scan this time however on the CT scan from 2018 there was some mention of mild nodularity that could be consistent with cirrhosis of the liver. I do not see any record of this anywhere else and our record databank. The patient is currently undergoing treatment for an aspiration event with Levaquin. He will require continued care for his COPD. The patient does aspirate easily so he will need to be sitting upright and aspiration precautions given while taking m edications and eating. The patient is having no chest pain and there is no obvious evidence of overt CHF and no elevation of heart enzymes however the patient has new significant EKG changes when compared to 2018. The patient may benefit from a cardiology evaluation in regards to this. He is not receiving any blood thinners here due to the initial problem. He is not reporting any chest pain. Vital signs are remaining stable. The patient is being transferred primarily for GI evaluation. Acceptance of transfer is appreciated. 08/02/19 03:27 demi eason [id number] - Results/Orders Results/Orders: On EKG it is difficult to tell if this is a sinus rhythm or if this is atrial fibrillation with occasional paced beats and PVCs. There is an old right bundle branch block. Rate is 69 bpm. There does appear to be a left anterior fascicular block. This EKG when compared to the EKG from 2018 is a patient has diffuse scattered inverted T waves. There is very mild ST segment depression in leads II, V4 and V5. There is of course a prolonged QT interval. Mild left axis deviation. Telemetry shows good rate control. There is very frequent PACs and PVCs. At times the patient appears to be in a normal sinus rhythm but at other times in atrial fibrillation with rate control. Laboratory Tests 08/02/19 08/02/19 08/02/19 00:52 00:53 00:53 WBC 11.6 H RBC 3.61 L Hgb 11.2 L Hct 33.9 L MCV 93.8 MCH 30.9 MCHC 32.9 L RDW 14.5 Plt Count 236 MPV 7.2 L Absolute Neuts (auto) 8.80 H Absolute Lymphs (auto) 1.60 Absolute Monos (auto) 1.00 H Absolute Eos (auto) 0.20 Absolute Basos (auto) 0.10 Neutrophils % 75.8 Neutrophils % (Manual) 73.0 Lymphocytes % 13.6 L Lymphocytes % (Manual) 9.0 Monocytes % 8.4 Monocytes % (Manual) 6.0 Eosinophils % 1.6 Basophils % 0.6 Band Neutrophils 7.0 H Eosinophils 2.0 Metamyelocytes 3.0 H Hypochromia 1+ Platelet Estimate Normal PT 11.0 H INR 1.11 PTT (SP) 26.3 Sodium 138 Potassium 4.7 Chloride 106 Carbon Dioxide 24 Anion Gap 12.7 BUN 52 H Creatinine 1.61 H BUN/Creatinine Ratio 32.3 H Random Glucose 185 H Serum Osmolality 294.5 Lactic Acid Calcium 8.1 L Total Bilirubin 0.7 AST 19 ALT 17 Alkaline Phosphatase 69 Creatine Kinase 201 H* CK-MB (CK-2) 5.6 H* CK-MB (CK-2) % 2.79 Troponin I 0.03 B-Natriuretic Peptide 158.0 H Serum Total Protein 6.4 Albumin 3.2 Globulin 3.2 Albumin/Globulin Ratio 1.0 L Stool Occult Blood 08/02/19 08/02/19 00:53 01:45 WBC RBC Hgb Hct MCV MCH MCHC RDW Plt Count MPV Absolute Neuts (auto) Absolute Lymphs (auto) Absolute Monos (auto) Absolute Eos (auto) Absolute Basos (auto) Neutrophils % Neutrophils % (Manual) Lymphocytes % Lymphocytes % (Manual) Monocytes % Monocytes % (Manual) Eosinophils % Basophils % Band Neutrophils Eosinophils Metamyelocytes Hypochromia Platelet Estimate PT INR PTT (SP) Sodium Potassium Chloride Carbon Dioxide Anion Gap BUN Creatinine BUN/Creatinine Ratio Random Glucose Serum Osmolality Lactic Acid 1.3 Calcium Total Bilirubin AST ALT Alkaline Phosphatase Creatine Kinase CK-MB (CK-2) CK-MB (CK-2) % Troponin I B-Natriuretic Peptide Serum Total Protein Albumin Globulin Albumin/Globulin Ratio Stool Occult Blood Positive CT scan of the chest abdomen pelvis shows chronic lung changes. No overt large pneumonia. There is some cardiomegaly. There is diffuse esophageal wall thickening noted. There is a distended gallbladder but no ductal dilation. Bilateral adrenal hyperplasia. DJD of the spine. Postsurgical changes from the CABG. No obvious source of active bleeding. CT scans were done without contrast due to renal function. Departure - Departure Clinical Impression: Upper GI bleed, Aspiration pneumonitis Disposition: Transfer to Hospital Condition: Serious Departure Forms: ED Discharge - Pt. Copy, Patient Portal Self Enrollment Referrals: Carroll Russo MD [Primary Care Provider] - 1-2 Weeks Home Medications: Ambulatory Orders Ascorbic Acid [Vitamin C] 500 mg PO DAILY #0 08/26/14 Cilostazol [Pletal] 100 mg PO BID 08/26/14 Duloxetine HCl [Cymbalta] 120 mg PO DAILY 08/26/14 Furosemide 40 mg PO DAILY 08/26/14 Oxybutynin Chloride [Oxybutynin Chloride ER] 5 mg PO DAILY 08/26/14 Pantoprazole Sodium 40 mg PO DAILY 08/26/14 Temazepam 15 mg PO BEDTIME 08/26/14 Trazodone HCl 150 mg PO BEDTIME 08/26/14 Aripiprazole 20 mg PO DAILY 01/16/17 Fluticasone Prop 0.05% Nasal [Flonase Nasal [place]] 2 spray INH DAILY 01/16/17 Insulin Glargine [Lantus Solostar] 10 unit SC BEDTIME #1 pack 02/11/17 Albuterol Sulfate Nebs [Proventil Nebs] 2.5 mg NEB BID PRN 03/31/17 Bisacodyl Suppository 10Mg [Dulcolax Suppository 10mg] 10 mg SD DAILY PRN 03/31/17 Clonidine HCl 0.1 mg PO Q4H PRN 03/31/17 Diphenoxylate/Atropine [Lomotil Tab] 2.5 mg PO Q6HR PRN 03/31/17 Insulin Lispro [Humalog] 100 unit SC ACHS 03/31/17 Multiple Vitamins W/ Minerals [Multivitamin Men] 1 tab PO DAILY 03/31/17 Guaifenesin [Mucinex] 600 mg PO BID 04/21/17 Ipratropium [place] 0.02 % IN Q6H PRN 04/21/17 Acetaminophen W/ Codeine [Tylenol W/ CODEINE #3] 1 - 2 ea PO Q4H PRN 09/13/17 Benzonatate Perles [Tessalon Perles] 1 - 2 mg PO TID PRN 09/13/17 Cetirizine HCl [Zyrtec] 10 mg PO DAILY 09/13/17 Lactobacillus [Acidophilus Lactobacilli] 1 cap PO TID 09/13/17 levoFLOXacin [Levaquin] 500 mg PO DAILY #10 tab 09/20/17 Levocetirizine Dihydrochloride [Xyzal Allergy 24Hr] 5 mg PO DAILY 08/02/19 Loperamide Cap [Imodium Cap] 2 mg PO DAILY 08/02/19 Metoprolol Tartrate 12.5 mg PO DAILY 08/02/19 Transfer to Outside Facility - Transfer Information Decision to Transfer Date: 08/02/19 Decision to Transfer Time: 03:27 Reason for Transfer: required specialist not available Accepting Provider:: tabatha oliveros Accepting Facility: [facility]
[2019-08-02 03:45] VITALS: BP 125/67; TEMP 98.6; O2SAT 98
== END 2019-08-02 03:59 | disposition short-term general hospital (02) ==
LOC: ER 00:43
DX: K92.2 Gastrointestinal hemorrhage, unspecified (principal); J69.0 Pneumonitis due to inhalation of food and vomit; Z99.81 Dependence on supplemental oxygen; Z95.1 Presence of aortocoronary bypass graft; I73.9 Peripheral vascular disease, unspecified; E11.9 Type 2 diabetes mellitus without complications; J44.9 Chronic obstructive pulmonary disease, unspecified; I10 Essential (primary) hypertension; Z95.0 Presence of cardiac pacemaker; Z79.4 Long term (current) use of insulin; Z79.899 Other long term (current) drug therapy